=== PATIENT | male | born 1965 | race Caucasian/White ===

== ENCOUNTER 2016-08-17 22:32 | Emergency (ER) | payer MEDICARE, OTHER ==
[~2016-08-17] VITALS: Ht 170.2 cm; Wt 73.6 kg
[~2016-08-17 22:32] MED LIST: DOCU250C91 PO; DULO20CA30 PO; GABA-531 PO; LEVE500T53 PO; PALI234D IM; PANT20TA PO; PHENY100 PO; TAMS0.4C32 PO
[2016-08-17 23:08] VITALS: BP 107/73
[2016-08-17] MEDS ORDERED: PredniSONE 20 MG TABLET PO ONE (23:45)
== END 2016-08-17 23:49 | disposition home or self-care (01) ==
LOC: EMS 22:37
DX: J06.9 Acute upper respiratory infection, unspecified (principal); I48.91 Unspecified atrial fibrillation; J44.9 Chronic obstructive pulmonary disease, unspecified; K21.9 Gastro-esophageal reflux disease without esophagitis; I10 Essential (primary) hypertension; F17.210 Nicotine dependence, cigarettes, uncomplicated; Z88.8 Allergy status to other drugs, medicaments and biological substances
CPT/HCPCS: 99283; J7512

== ENCOUNTER 2016-09-17 20:25 | Inpatient (IN) | payer MEDICARE, MEDICAID ==
[~2016-09-17] VITALS: Ht 170.2 cm; Wt 77.5 kg
[2016-09-17] MEDS ORDERED: HydrOXYzine PAMOATE 50 MG CAPSULE PO PRN (21:15)
[2016-09-17] MEDS ORDERED: LOPERAMIDE HCL 2 MG CAPSULE PO PRN (21:15)
[2016-09-17] MEDS ORDERED: GuaiFENesin/D-METHORPHAN [SUGAR-FREE] 200-20MG/10 ML SYRUP UDCUP PO PRN (21:15)
[2016-09-17] MEDS ORDERED: QUEtiapine FUMARATE 100 MG TABLET PO PRN (21:15)
[2016-09-17] MEDS ORDERED: CYANOCOBALAMIN 1,000 MCG/ML VIAL IM ONE (21:15)
[2016-09-17] MEDS ORDERED: DIAZEPAM 10 MG TABLET PO PRN (21:15)
[2016-09-17] MEDS ORDERED: ZOLPIDEM TARTRATE 10 MG TABLET PO PRN (21:15)
[2016-09-17] MEDS ORDERED: -PHARMACY VACCINE NOTE- MISC ONE ×2 (22:45)
[2016-09-17 23:50] VITALS: BP 124/81
[2016-09-18] VITALS (9 sets, daily range): BP systolic 89–120; BP diastolic 53–83
[2016-09-18] MEDS ORDERED: DIAZEPAM 10 MG TABLET PO PRN (07:00)
[2016-09-18] MEDS: DIAZEPAM 10 MG TABLET PO SCH ×4 (09:28→21:13)
[2016-09-18] MEDS: DULoxetine HCL 20 MG CAPSULE PO SCH (09:29)
[2016-09-18] MEDS: GABAPENTIN 300 MG CAPSULE PO SCH ×4 (09:29→21:13)
[2016-09-18] MEDS: DOCUSATE SODIUM 100 MG CAPSULE PO SCH ×2 (09:29→17:33)
[2016-09-18] MEDS: PHENYTOIN SODIUM 100 MG ER CAPSULE PO SCH ×3 (09:29→17:33)
[2016-09-18] MEDS: MULTIVITAMINS WITH MINERALS, THERAPEUTIC TABLET PO SCH (09:30)
[2016-09-18] MEDS: LevETIRAcetam 500 MG TABLET PO SCH ×3 (09:30→17:34)
[2016-09-18] MEDS: PANTOPRAZOLE SODIUM 40 MG DR TABLET PO SCH (09:31)
[2016-09-18] MEDS: FOLIC ACID 1 MG TABLET PO SCH (09:34)
[2016-09-18] MEDS: THIAMINE HCL 100 MG TABLET PO SCH ×2 (09:34→17:34)
[2016-09-18] MEDS ORDERED: PROMETHAZINE HCL 25 MG TABLET PO PRN (12:15)
[2016-09-18] MEDS ORDERED: MAG HYDROX/AL HYDROX/SIMETH ES 30 ML SUSPENSION UDCUP PO PRN (12:15)
[2016-09-18] MEDS ORDERED: MAGNESIUM HYDROXIDE SUSPENSION 30 ML UDCUP PO PRN (12:15)
[2016-09-18] MEDS ORDERED: PALIPERIDONE PALMITATE 234 MG/1.5 ML SYRINGE IM ONE (12:45)
[2016-09-18] MEDS: TOPIRAMATE 25 MG TABLET PO SCH ×3 (13:58→21:13)
[2016-09-18] MEDS: ACAMPROSATE CALCIUM 333 MG DR TABLET PO SCH (17:00)
[2016-09-18] MEDS ORDERED: DENTURE ADHESIVE 68 GM CREAM DT PRN (18:30)
[2016-09-18] MEDS: TAMSULOSIN HCL 0.4 MG CAPSULE PO SCH (21:13)
[2016-09-19 03:02] VITALS: BP 106/68
[2016-09-19 03:03] VITALS: BP 106/68
[2016-09-19 08:06] VITALS: BP 111/77
[2016-09-19 08:26] LABS: BASOPHILS % (AUTO) 0.3 % (0.0-2.0); EOSINOPHILS % (AUTO) 8.4 % (1.0-6.0); HEMOGLOBIN 14.7 g/dL (13.5-17.5); LYMPHOCYTES # (AUTO) 1.3 K/uL (1.0-4.8); LYMPHOCYTES % (AUTO) 13.2 % (22.0-44.0); MEAN CORPUSCULAR HEMOGLOBIN 29.9 pg (26.0-34.0); MEAN CORPUSCULAR HGB CONC 32.8 G/dL (31.0-37.0); MEAN CORPUSCULAR VOLUME 91 fL (80-100); MONOCYTES # (AUTO) 0.7 K/uL (0.1-1.0); MONOCYTES % (AUTO) 6.9 % (2.0-9.0); NEUTROPHILS # (AUTO) 6.8 K/uL (1.8-7.7); NEUTROPHILS % (AUTO) 71.2 % (40.0-70.0); PLATELET COUNT (AUTO) 281 K/uL (150-450); RED BLOOD CELL COUNT(AUTO) 4.94 MIL/uL (4.50-5.90); RED CELL DISTRIBUTION WIDTH 14.9 % (11.5-14.5); WHITE BLOOD COUNT (AUTO) 9.5 K/uL (4.5-11.0)
[2016-09-19] MEDS: PHENYTOIN SODIUM 100 MG ER CAPSULE PO SCH ×3 (08:41→16:18)
[2016-09-19] MEDS: NALTREXONE HCL 50 MG TABLET PO SCH (08:41)
[2016-09-19] MEDS: DULoxetine HCL 20 MG CAPSULE PO SCH (08:41)
[2016-09-19] MEDS: LevETIRAcetam 500 MG TABLET PO SCH ×3 (08:41→16:19)
[2016-09-19] MEDS: MULTIVITAMINS WITH MINERALS, THERAPEUTIC TABLET PO SCH (08:42)
[2016-09-19] MEDS: THIAMINE HCL 100 MG TABLET PO SCH ×2 (08:42→16:18)
[2016-09-19] MEDS: ACAMPROSATE CALCIUM 333 MG DR TABLET PO SCH ×3 (08:42→16:18)
[2016-09-19] MEDS: GABAPENTIN 300 MG CAPSULE PO SCH ×4 (08:42→20:34)
[2016-09-19] MEDS: DIAZEPAM 10 MG TABLET PO SCH ×4 (08:42→20:34)
[2016-09-19] MEDS: DOCUSATE SODIUM 100 MG CAPSULE PO SCH ×2 (08:43→16:18)
[2016-09-19] MEDS: TOPIRAMATE 25 MG TABLET PO SCH ×4 (08:43→20:35)
[2016-09-19] MEDS: FOLIC ACID 1 MG TABLET PO SCH (08:43)
[2016-09-19] MEDS: PANTOPRAZOLE SODIUM 40 MG DR TABLET PO SCH (08:43)
[2016-09-19 08:51] LABS: HEMOGLOBIN A1C 5.1 % (4.5-6.2)
[2016-09-19 08:59] LABS: ALANINE AMINOTRANSFERASE 22 U/L (12-78); ALBUMIN 3.8 g/dL (3.4-5.0); ANION GAP 9 mmol/L (8-16); ASPARTATE AMINOTRANSFERASE 19 U/L (15-37); BILIRUBIN,TOTAL 0.7 mg/dL (0.1-1.0); CALCIUM, TOTAL 9.1 mg/dL (8.8-10.5); CARBON DIOXIDE 28 mmol/L (22-29); CHLORIDE 104 mmol/L (98-107); CHOL/HDL RATIO 1.9 (4.2-7.3); CREATININE 0.89 mg/dL (0.60-1.30); GLOMERULAR FILTR. RATE CALC > 60 mL/min (>60); POTASSIUM 4.2 mmol/L (3.5-5.1); SODIUM SERUM 141 mmol/L (136-145); THYROID STIMULATING HORMONE 0.66 uIU/mL (0.36-3.74); TOTAL PROTEIN, SERUM 7.8 g/dL (6.4-8.2); UREA NITROGEN, BLOOD 13 mg/dL (7-18)
[2016-09-19 16:18] VITALS: BP 117/80
[2016-09-19] MEDS: ACETAMINOPHEN 325 MG TABLET PO PRN (16:23)
[2016-09-19] MEDS: TAMSULOSIN HCL 0.4 MG CAPSULE PO SCH (20:36)
[2016-09-20 00:03] VITALS: BP 121/76
[2016-09-20 00:04] VITALS: BP 121/76
[2016-09-20] MEDS ORDERED: DIAZEPAM 5 MG TABLET PO PRN (07:00)
[2016-09-20 08:16] VITALS: BP 102/73
[2016-09-20 08:17] VITALS: BP 102/73
[2016-09-20] MEDS: ACETAMINOPHEN 325 MG TABLET PO PRN (08:42)
[2016-09-20] MEDS: DIAZEPAM 5 MG TABLET PO SCH ×4 (08:43→20:34)
[2016-09-20] MEDS: PANTOPRAZOLE SODIUM 40 MG DR TABLET PO SCH (08:43)
[2016-09-20] MEDS: FOLIC ACID 1 MG TABLET PO SCH (08:44)
[2016-09-20] MEDS: MULTIVITAMINS WITH MINERALS, THERAPEUTIC TABLET PO SCH (08:44)
[2016-09-20] MEDS: GABAPENTIN 300 MG CAPSULE PO SCH ×4 (08:44→20:34)
[2016-09-20] MEDS: ACAMPROSATE CALCIUM 333 MG DR TABLET PO SCH ×3 (08:44→16:41)
[2016-09-20] MEDS: TOPIRAMATE 25 MG TABLET PO SCH ×4 (08:44→20:35)
[2016-09-20] MEDS: THIAMINE HCL 100 MG TABLET PO SCH ×2 (08:44→16:41)
[2016-09-20] MEDS: DOCUSATE SODIUM 100 MG CAPSULE PO SCH ×2 (08:45→16:42)
[2016-09-20] MEDS: PHENYTOIN SODIUM 100 MG ER CAPSULE PO SCH ×3 (08:45→16:42)
[2016-09-20] MEDS: DULoxetine HCL 20 MG CAPSULE PO SCH (08:45)
[2016-09-20] MEDS: LevETIRAcetam 500 MG TABLET PO SCH ×3 (08:45→16:42)
[2016-09-20] MEDS: NALTREXONE HCL 50 MG TABLET PO SCH (08:45)
[2016-09-20 16:00] VITALS: BP 113/78
[2016-09-20 16:07] VITALS: BP 113/78
[2016-09-20] MEDS: TAMSULOSIN HCL 0.4 MG CAPSULE PO SCH (20:35)
[2016-09-21] VITALS: BP 113/65
[2016-09-21 06:26] VITALS: BP 108/73
[2016-09-21] MEDS ORDERED: DIAZEPAM 5 MG TABLET PO PRN (07:00)
[2016-09-21 08:04] VITALS: BP 124/68
[2016-09-21] MEDS: PANTOPRAZOLE SODIUM 40 MG DR TABLET PO SCH (08:34)
[2016-09-21] MEDS: TOPIRAMATE 25 MG TABLET PO SCH ×3 (08:36→16:38)
[2016-09-21] MEDS: DOCUSATE SODIUM 100 MG CAPSULE PO SCH ×2 (08:36→16:38)
[2016-09-21] MEDS: ACAMPROSATE CALCIUM 333 MG DR TABLET PO SCH ×3 (08:37→16:39)
[2016-09-21] MEDS: THIAMINE HCL 100 MG TABLET PO SCH ×2 (08:37→16:38)
[2016-09-21] MEDS: DULoxetine HCL 20 MG CAPSULE PO SCH (08:37)
[2016-09-21] MEDS: PHENYTOIN SODIUM 100 MG ER CAPSULE PO SCH ×3 (08:37→16:38)
[2016-09-21] MEDS: FOLIC ACID 1 MG TABLET PO SCH (08:37)
[2016-09-21] MEDS: NALTREXONE HCL 50 MG TABLET PO SCH (08:37)
[2016-09-21] MEDS: MULTIVITAMINS WITH MINERALS, THERAPEUTIC TABLET PO SCH (08:37)
[2016-09-21] MEDS: LevETIRAcetam 500 MG TABLET PO SCH ×3 (08:38→16:38)
[2016-09-21] MEDS: GABAPENTIN 300 MG CAPSULE PO SCH ×3 (08:38→16:38)
[2016-09-21 10:26] VITALS: BP 124/68
[2016-09-21] MEDS: ACETAMINOPHEN 325 MG TABLET PO PRN (13:34)
[2016-09-21 13:36] VITALS: BP 128/73
[2016-09-21 14:36] VITALS: BP 119/72
[2016-09-21] MEDS ORDERED: GABA-531 PO (15:41)
[2016-09-21] MEDS ORDERED: DULO20CA30 PO (15:41)
[2016-09-21] MEDS ORDERED: NALT50 PO (15:41)
[2016-09-21] MEDS ORDERED: ACAM333T7 PO (15:41)
[2016-09-21] MEDS ORDERED: TOPI25 PO (15:41)
[2016-09-21] MEDS ORDERED: PALI234D IM (15:41)
[2016-09-21] MEDS ORDERED: PHENY100 PO (15:41)
[2016-09-21] MEDS ORDERED: LEVE500T53 PO (15:41)
[2016-10-16] MEDS ORDERED: PALIPERIDONE PALMITATE 234 MG/1.5 ML SYRINGE IM SCH (09:00)
== END 2016-09-21 16:50 | disposition home or self-care (01) | DRG 885 ==
LOC: B2X 21:09 → EDSTATUS 21:48
PROVIDERS: ADMIT Psychiatry & Neurology Psychiatry; ATTEND Psychiatry & Neurology Psychiatry
PROC: GZ51ZZZ Individual Psychotherapy, Behavioral (ICD-10-PCS; principal; 2016-09-17)
DX: F25.1 Schizoaffective disorder, depressive type (principal); R45.851 Suicidal ideations; F10.239 Alcohol dependence with withdrawal, unspecified; F12.90 Cannabis use, unspecified, uncomplicated; K21.9 Gastro-esophageal reflux disease without esophagitis; K59.00 Constipation, unspecified; M19.039 Primary osteoarthritis, unspecified wrist; N40.0 Benign prostatic hyperplasia without lower urinary tract symptoms; R56.9 Unspecified convulsions; J44.9 Chronic obstructive pulmonary disease, unspecified; F17.210 Nicotine dependence, cigarettes, uncomplicated; B19.20 Unspecified viral hepatitis C without hepatic coma; E78.5 Hyperlipidemia, unspecified; I10 Essential (primary) hypertension; F15.90 Other stimulant use, unspecified, uncomplicated; D64.9 Anemia, unspecified; I48.91 Unspecified atrial fibrillation; Z88.8 Allergy status to other drugs, medicaments and biological substances; Z91.19 Patient's noncompliance with other medical treatment and regimen; Z98.890 Other specified postprocedural states; Z84.89 Family history of other specified conditions
CPT/HCPCS: 83036; 84439; 84443; J3420

== ENCOUNTER 2016-10-01 22:20 | Emergency (ER) | payer MEDICARE, OTHER ==
[~2016-10-01] VITALS: Ht 170.2 cm; Wt 77.7 kg
[~2016-10-01 22:20] MED LIST changes: +ACAM333T7 PO; +NALT50 PO; +TOPI25 PO
[2016-10-01 22:52] LABS: BASOPHILS % (AUTO) 0.9 % (0.0-2.0); EOSINOPHILS % (AUTO) 12.7 % (1.0-6.0); HEMATOCRIT 40.9 % (41-53); HEMOGLOBIN 13.5 g/dL (13.5-17.5); LYMPHOCYTES # (AUTO) 2.8 K/uL (1.0-4.8); LYMPHOCYTES % (AUTO) 43.1 % (22.0-44.0); MEAN CORPUSCULAR HEMOGLOBIN 29.5 pg (26.0-34.0); MEAN CORPUSCULAR VOLUME 90 fL (80-100); MONOCYTES # (AUTO) 0.5 K/uL (0.1-1.0); MONOCYTES % (AUTO) 8.3 % (2.0-9.0); NEUTROPHILS # (AUTO) 2.3 K/uL (1.8-7.7); PLATELET COUNT (AUTO) 298 K/uL (150-450); RED BLOOD CELL COUNT(AUTO) 4.57 MIL/uL (4.50-5.90); WHITE BLOOD COUNT (AUTO) 6.4 K/uL (4.5-11.0)
[2016-10-01 23:03] LABS: ANION GAP 9 mmol/L (8-16); CALCIUM, TOTAL 8.6 mg/dL (8.8-10.5); CARBON DIOXIDE 29 mmol/L (22-29); CHLORIDE 105 mmol/L (98-107); CREATININE 0.87 mg/dL (0.60-1.30); GLOMERULAR FILTR. RATE CALC > 60 mL/min (>60); SODIUM SERUM 143 mmol/L (136-145); UREA NITROGEN, BLOOD 12 mg/dL (7-18)
[2016-10-01 23:09] LABS: ALANINE AMINOTRANSFERASE 53 U/L (12-78); ALBUMIN 3.5 g/dL (3.4-5.0); ASPARTATE AMINOTRANSFERASE 56 U/L (15-37); BILIRUBIN,TOTAL 0.1 mg/dL (0.1-1.0); TOTAL PROTEIN, SERUM 7.2 g/dL (6.4-8.2)
[2016-10-01 23:32] LABS: GLUCOSE,POINT OF CARE 93 MG/DL (70-110)
[2016-10-01] MEDS ORDERED: SODIUM CHLORIDE IV ONE (23:45)
[2016-10-01] MEDS ORDERED: FOSPHENYTOIN SODIUM IV ONE (23:45)
[2016-10-02 02:34] VITALS: BP 126/63
== END 2016-10-02 02:37 | disposition home or self-care (01) ==
LOC: EMS 22:23
DX: F10.229 Alcohol dependence with intoxication, unspecified (principal); I10 Essential (primary) hypertension; J44.9 Chronic obstructive pulmonary disease, unspecified; K21.9 Gastro-esophageal reflux disease without esophagitis; F17.210 Nicotine dependence, cigarettes, uncomplicated; Z88.8 Allergy status to other drugs, medicaments and biological substances; Y90.8 Blood alcohol level of 240 mg/100 ml or more
CPT/HCPCS: 36415; 80053; 80185; 82948; 82962; 83690; 84484; 85025; 96365; 96366; 99285; G0480; J7050; Q2009

== ENCOUNTER 2017-02-26 14:35 | Emergency (ER) | payer MEDICARE, OTHER ==
[~2017-02-26] VITALS: Ht 170.2 cm; Wt 81.8 kg
[2017-02-26] MEDS ORDERED: HYDROCODONE/ACETAMINOPHEN 5-325 MG TABLET PO ONE (15:30)
[2017-02-26] MEDS ORDERED: ONDANSETRON HCL 4 MG TABLET PO ONE (15:30)
[2017-02-26] MEDS ORDERED: PANT40TA25 PO (15:34)
[2017-02-26] MEDS ORDERED: DSS100 PO (15:35)
[2017-02-26 15:52] VITALS: BP 121/75
== END 2017-02-26 15:56 | disposition home or self-care (01) ==
LOC: EMS 14:42
DX: S13.4XXA Sprain of ligaments of cervical spine, initial encounter (principal); M25.552 Pain in left hip; I10 Essential (primary) hypertension; J44.9 Chronic obstructive pulmonary disease, unspecified; I48.91 Unspecified atrial fibrillation; K21.9 Gastro-esophageal reflux disease without esophagitis; F17.210 Nicotine dependence, cigarettes, uncomplicated; Z88.8 Allergy status to other drugs, medicaments and biological substances; V49.50XA Passenger injured in collision with unspecified motor vehicles in traffic accident, initial encounter; Y93.89 Activity, other specified; Y92.411 Interstate highway as the place of occurrence of the external cause; Y99.8 Other external cause status
CPT/HCPCS: 99283; Q0162

== ENCOUNTER → 2017-05-17 | Outpatient (CLI) | payer MEDICARE, MEDICAID, SELFPAY, OTHER ==
[~2017-05-17] MED LIST changes: +CEPH500 PO; -DOCU250C91 PO; +DSS100 PO; -NALT50 PO; +NALT50TA6 PO; +PALI6 PO; -PANT20TA PO; +PANT40TA25 PO
== END | disposition home or self-care (01) ==
LOC: MSR 09:42
PROVIDERS: ATTEND Legal Medicine
DX: R76.11 Nonspecific reaction to tuberculin skin test without active tuberculosis (principal)
CPT/HCPCS: 71020; 86480

== ENCOUNTER 2017-07-21 21:26 | Inpatient (IN) | payer MEDICARE, MEDICAID ==
[~2017-07-21] VITALS: Ht 170.2 cm; Wt 74.4 kg
[~2017-07-21 21:26] MED LIST changes: -CEPH500 PO; -PALI6 PO
[2017-07-21 21:54] VITALS: BP 118/78
[2017-07-21] MEDS ORDERED: HALOPERIDOL 5 MG TABLET PO PRN (22:00)
[2017-07-22] VITALS (8 sets, daily range): BP systolic 100–115; BP diastolic 67–85
[2017-07-22 01:25] LABS: BASOPHILS # (AUTO) 0.04 K/uL (0.00-0.20); EOSINOPHILS # (AUTO) 0.17 K/uL (0.00-0.70); EOSINOPHILS % (AUTO) 3.94 % (1.0-6.0); HEMATOCRIT 42.4 % (41-53); HEMOGLOBIN 14.2 g/dL (13.5-17.5); LYMPHOCYTES # (AUTO) 1.5 K/uL (1.0-4.8); MEAN CORPUSCULAR HEMOGLOBIN 29.8 pg (26.0-34.0); MEAN CORPUSCULAR HGB CONC 33.4 G/dL (31.0-37.0); MEAN CORPUSCULAR VOLUME 89 fL (80-100); MONOCYTES # (AUTO) 0.4 K/uL (0.1-1.0); MONOCYTES % (AUTO) 9.8 % (2.0-9.0); NEUTROPHILS # (AUTO) 2.2 K/uL (1.8-7.7); NEUTROPHILS % (AUTO) 50.3 % (40.0-70.0); PLATELET COUNT (AUTO) 290 K/uL (150-450); RED BLOOD CELL COUNT(AUTO) 4.75 MIL/uL (4.50-5.90); RED CELL DISTRIBUTION WIDTH 15.4 % (11.5-14.5)
[2017-07-22 01:34] LABS: ANION GAP 10 mmol/L (8-16); CARBON DIOXIDE 25 mmol/L (22-29); CHLORIDE 100 mmol/L (98-107); CREATININE 0.81 mg/dL (0.60-1.30); GLOMERULAR FILTR. RATE CALC > 60 mL/min (>60); GLUCOSE,RANDOM 109 mg/dL (70-110); POTASSIUM 3.6 mmol/L (3.5-5.1); SODIUM SERUM 135 mmol/L (136-145); UREA NITROGEN, BLOOD 8 mg/dL (7-18)
[2017-07-22 01:38] LABS: APPEARANCE,URINE CLEAR (CLEAR); BILIRUBIN,URINE NEGATIVE (NEGATIVE); GLUCOSE, URINE (UA) NEGATIVE (NEGATIVE); KETONES,URINE NEGATIVE (NEGATIVE); LEUKOCYTE ESTERASE ,URINE NEGATIVE (NEGATIVE); NITRATE,URINE NEGATIVE (NEGATIVE); OCCULT BLOOD,URINE NEGATIVE (NEGATIVE); PROTEIN,URINE NEGATIVE (NEGATIVE); UROBILINOGEN,URINE 0.2 mg/dL (<=1.0)
[2017-07-22 01:40] LABS: ALANINE AMINOTRANSFERASE 48 U/L (12-78); ALBUMIN 3.5 g/dL (3.4-5.0); ALKALINE PHOSPHATASE 69 U/L (46-116); ASPARTATE AMINOTRANSFERASE 37 U/L (15-37); BILIRUBIN,TOTAL 0.3 mg/dL (0.1-1.0); TOTAL PROTEIN, SERUM 7.2 g/dL (6.4-8.2)
[2017-07-22 01:43] LABS: AMPHET/METH SCREEN,URINE NEGATIVE (NEGATIVE); BARBITURATE SCREEN, URINE NEGATIVE (NEGATIVE); BENZODIAZEPINES SCREEN,URINE NEGATIVE (NEGATIVE); CANNABINOID SCREEN,URINE NEGATIVE (NEGATIVE); COCAINE SCREEN,URINE NEGATIVE (NEGATIVE); METHADONE SCREEN, URINE NEGATIVE (NEGATIVE); OPIATE SCREEN,URINE NEGATIVE (NEGATIVE); PHENCYCLIDINE SCREEN,URINE NEGATIVE (NEGATIVE)
[2017-07-22] MEDS ORDERED: CefTRIAXone SODIUM 1 GM/VIAL IM ONE (03:15)
[2017-07-22] MEDS ORDERED: LIDOCAINE HCL/PF 1% 2 ML VIAL IM ONE (03:15)
[2017-07-22] MEDS: NICOTINE 14 MG/24 HOUR PATCH TD SCH (08:22)
[2017-07-22] MEDS: CEPHALEXIN MONOHYDRATE 500 MG CAPSULE PO SCH ×4 (08:22→21:27)
[2017-07-22 08:27] LABS: BASOPHILS # (AUTO) 0.04 K/uL (0.00-0.20); BASOPHILS % (AUTO) 0.8 % (0.0-2.0); EOSINOPHILS # (AUTO) 0.17 K/uL (0.00-0.70); EOSINOPHILS % (AUTO) 3.82 % (1.0-6.0); HEMATOCRIT 42.7 % (41-53); HEMOGLOBIN 14.2 g/dL (13.5-17.5); LYMPHOCYTES # (AUTO) 0.9 K/uL (1.0-4.8); LYMPHOCYTES % (AUTO) 19.6 % (22.0-44.0); MEAN CORPUSCULAR HEMOGLOBIN 29.9 pg (26.0-34.0); MEAN CORPUSCULAR HGB CONC 33.3 G/dL (31.0-37.0); MEAN CORPUSCULAR VOLUME 90 fL (80-100); MONOCYTES # (AUTO) 0.5 K/uL (0.1-1.0); MONOCYTES % (AUTO) 10.9 % (2.0-9.0); NEUTROPHILS # (AUTO) 2.9 K/uL (1.8-7.7); NEUTROPHILS % (AUTO) 64.8 % (40.0-70.0); PLATELET COUNT (AUTO) 289 K/uL (150-450); RED BLOOD CELL COUNT(AUTO) 4.75 MIL/uL (4.50-5.90); RED CELL DISTRIBUTION WIDTH 15.3 % (11.5-14.5)
[2017-07-22 09:12] LABS: ALANINE AMINOTRANSFERASE 48 U/L (12-78); ALBUMIN 3.6 g/dL (3.4-5.0); ALKALINE PHOSPHATASE 70 U/L (46-116); ANION GAP 12 mmol/L (8-16); ASPARTATE AMINOTRANSFERASE 43 U/L (15-37); BILIRUBIN,TOTAL 0.3 mg/dL (0.1-1.0); CALCIUM, TOTAL 8.3 mg/dL (8.8-10.5); CARBON DIOXIDE 25 mmol/L (22-29); CHLORIDE 100 mmol/L (98-107); CREATININE 0.75 mg/dL (0.60-1.30); GLOMERULAR FILTR. RATE CALC > 60 mL/min (>60); GLUCOSE,RANDOM 91 mg/dL (70-110); SODIUM SERUM 137 mmol/L (136-145); TOTAL PROTEIN, SERUM 7.3 g/dL (6.4-8.2); UREA NITROGEN, BLOOD 8 mg/dL (7-18)
[2017-07-22] MEDS ORDERED: DENTURE ADHESIVE 68 GM CREAM DT PRN (09:15)
[2017-07-22] MEDS: LORazepam 2 MG TABLET PO PRN (12:50)
[2017-07-22] MEDS: LevETIRAcetam 500 MG TABLET PO SCH (16:27)
[2017-07-22] MEDS: ZOLPIDEM TARTRATE 10 MG TABLET PO PRN (21:39)
[2017-07-23] VITALS (7 sets, daily range): BP systolic 116–135; BP diastolic 74–85
[2017-07-23] MEDS: DULoxetine HCL 20 MG CAPSULE PO SCH (08:27)
[2017-07-23] MEDS: PANTOPRAZOLE SODIUM 40 MG DR TABLET PO SCH (08:27)
[2017-07-23] MEDS: CEPHALEXIN MONOHYDRATE 500 MG CAPSULE PO SCH ×4 (08:27→20:11)
[2017-07-23] MEDS: PALIPERIDONE 6 MG ER TABLET PO SCH (08:27)
[2017-07-23] MEDS: LevETIRAcetam 500 MG TABLET PO SCH ×2 (08:27→16:12)
[2017-07-23] MEDS: NICOTINE 14 MG/24 HOUR PATCH TD SCH (08:28)
[2017-07-23] MEDS: ACETAMINOPHEN 325 MG TABLET PO PRN (11:19)
[2017-07-23] MEDS: LORazepam 2 MG TABLET PO PRN (16:12)
[2017-07-24 03:12] VITALS: BP 128/84
[2017-07-24] MEDS: LORazepam 2 MG TABLET PO PRN ×2 (03:12→13:22)
[2017-07-24 03:13] VITALS: BP 128/84
[2017-07-24] MEDS: DULoxetine HCL 20 MG CAPSULE PO SCH (08:28)
[2017-07-24] MEDS: CEPHALEXIN MONOHYDRATE 500 MG CAPSULE PO SCH ×4 (08:28→20:09)
[2017-07-24] MEDS: PALIPERIDONE 6 MG ER TABLET PO SCH (08:29)
[2017-07-24] MEDS: NICOTINE 14 MG/24 HOUR PATCH TD SCH (08:29)
[2017-07-24] MEDS: LevETIRAcetam 500 MG TABLET PO SCH ×2 (08:29→16:13)
[2017-07-24] MEDS: PANTOPRAZOLE SODIUM 40 MG DR TABLET PO SCH (08:29)
[2017-07-24 08:35] VITALS: BP 110/64
[2017-07-24 16:16] VITALS: BP 123/90
[2017-07-24] MEDS: ZOLPIDEM TARTRATE 10 MG TABLET PO PRN (21:01)
[2017-07-25 01:58] VITALS: BP 119/74
[2017-07-25 02:03] VITALS: BP 119/74
[2017-07-25] MEDS: LORazepam 2 MG TABLET PO PRN ×2 (02:03→16:56)
[2017-07-25 08:17] VITALS: BP 119/80
[2017-07-25] MEDS: CEPHALEXIN MONOHYDRATE 500 MG CAPSULE PO SCH ×4 (08:21→20:22)
[2017-07-25] MEDS: DULoxetine HCL 20 MG CAPSULE PO SCH (08:21)
[2017-07-25] MEDS: PALIPERIDONE 6 MG ER TABLET PO SCH (08:21)
[2017-07-25] MEDS: PANTOPRAZOLE SODIUM 40 MG DR TABLET PO SCH (08:21)
[2017-07-25] MEDS: LevETIRAcetam 500 MG TABLET PO SCH ×2 (08:22→16:09)
[2017-07-25] MEDS: NICOTINE 14 MG/24 HOUR PATCH TD SCH (08:22)
[2017-07-25 16:08] VITALS: BP 122/84
[2017-07-25 16:09] VITALS: BP 122/84
[2017-07-25] MEDS: ZOLPIDEM TARTRATE 10 MG TABLET PO PRN (20:24)
[2017-07-26 01:38] VITALS: BP 127/86
[2017-07-26 01:40] VITALS: BP 127/86
[2017-07-26] MEDS: LORazepam 2 MG TABLET PO PRN ×3 (01:52→22:12)
[2017-07-26 08:00] VITALS: BP 119/64
[2017-07-26 08:16] VITALS: BP 119/64
[2017-07-26] MEDS: CEPHALEXIN MONOHYDRATE 500 MG CAPSULE PO SCH ×4 (08:59→20:26)
[2017-07-26] MEDS: NICOTINE 14 MG/24 HOUR PATCH TD SCH (08:59)
[2017-07-26] MEDS: DULoxetine HCL 20 MG CAPSULE PO SCH (08:59)
[2017-07-26] MEDS: PANTOPRAZOLE SODIUM 40 MG DR TABLET PO SCH (08:59)
[2017-07-26] MEDS: LevETIRAcetam 500 MG TABLET PO SCH ×2 (08:59→16:37)
[2017-07-26] MEDS: PALIPERIDONE 6 MG ER TABLET PO SCH (08:59)
[2017-07-26 16:00] VITALS: BP 123/83
[2017-07-26 16:06] VITALS: BP 125/83
[2017-07-26] MEDS: ZOLPIDEM TARTRATE 10 MG TABLET PO PRN (20:26)
[2017-07-27 01:42] VITALS: BP 118/60
[2017-07-27 08:14] VITALS: BP 110/87
[2017-07-27] MEDS: PALIPERIDONE 6 MG ER TABLET PO SCH (09:52)
[2017-07-27] MEDS: DULoxetine HCL 20 MG CAPSULE PO SCH (09:52)
[2017-07-27] MEDS: CEPHALEXIN MONOHYDRATE 500 MG CAPSULE PO SCH ×4 (09:52→20:32)
[2017-07-27] MEDS: LevETIRAcetam 500 MG TABLET PO SCH ×2 (09:53→16:38)
[2017-07-27] MEDS: PANTOPRAZOLE SODIUM 40 MG DR TABLET PO SCH (09:53)
[2017-07-27] MEDS: NICOTINE 14 MG/24 HOUR PATCH TD SCH (09:55)
[2017-07-27 13:28] VITALS: BP 118/72
[2017-07-27] MEDS: LORazepam 2 MG TABLET PO PRN (13:30)
[2017-07-27] MEDS: ACETAMINOPHEN 325 MG TABLET PO PRN (13:30)
[2017-07-27 13:38] VITALS: BP 117/72
[2017-07-27 14:31] VITALS: BP 115/67
[2017-07-27 16:22] VITALS: BP 136/84
[2017-07-27] MEDS: ZOLPIDEM TARTRATE 10 MG TABLET PO PRN (22:00)
[2017-07-28 00:17] VITALS: BP 114/92
[2017-07-28 00:21] VITALS: BP 114/92
[2017-07-28] MEDS: LORazepam 2 MG TABLET PO PRN ×2 (00:44→08:32)
[2017-07-28] MEDS: PANTOPRAZOLE SODIUM 40 MG DR TABLET PO SCH (08:31)
[2017-07-28] MEDS: PALIPERIDONE 6 MG ER TABLET PO SCH (08:31)
[2017-07-28] MEDS: CEPHALEXIN MONOHYDRATE 500 MG CAPSULE PO SCH ×2 (08:31→12:16)
[2017-07-28] MEDS: LevETIRAcetam 500 MG TABLET PO SCH (08:32)
[2017-07-28] MEDS: NICOTINE 14 MG/24 HOUR PATCH TD SCH (08:32)
[2017-07-28] MEDS: DULoxetine HCL 20 MG CAPSULE PO SCH (08:32)
[2017-07-28 08:56] VITALS: BP 112/77
[2017-07-28 09:47] VITALS: BP 112/77
[2017-07-28] MEDS ORDERED: DULO20CA30 PO (12:34)
[2017-07-28] MEDS ORDERED: PALI6 PO (12:34)
[2017-07-28] MEDS ORDERED: LEVE500T53 PO (12:39)
[2017-07-28] MEDS ORDERED: PANT40TA25 PO (12:39)
[2017-07-28] MEDS ORDERED: CEPH500 PO (12:39)
== END 2017-07-28 16:00 | disposition home or self-care (01) | DRG 885 ==
LOC: BV PSY EVL 23:44 → B2X 07-22 03:00
PROVIDERS: ADMIT Psychiatry & Neurology Psychiatry; ATTEND Psychiatry & Neurology Psychiatry
DX: F20.0 Paranoid schizophrenia (principal); K75.9 Inflammatory liver disease, unspecified; R45.851 Suicidal ideations; E87.1 Hypo-osmolality and hyponatremia; L03.113 Cellulitis of right upper limb; I48.91 Unspecified atrial fibrillation; J44.9 Chronic obstructive pulmonary disease, unspecified; K21.9 Gastro-esophageal reflux disease without esophagitis; K59.00 Constipation, unspecified; I10 Essential (primary) hypertension; F32.9 Major depressive disorder, single episode, unspecified; D64.9 Anemia, unspecified; F41.9 Anxiety disorder, unspecified; F10.20 Alcohol dependence, uncomplicated; F17.210 Nicotine dependence, cigarettes, uncomplicated; M19.039 Primary osteoarthritis, unspecified wrist; F15.90 Other stimulant use, unspecified, uncomplicated; N40.0 Benign prostatic hyperplasia without lower urinary tract symptoms; F12.90 Cannabis use, unspecified, uncomplicated; Z96.649 Presence of unspecified artificial hip joint; Z86.11 Personal history of tuberculosis; Z88.8 Allergy status to other drugs, medicaments and biological substances; Z84.2 Family history of other diseases of the genitourinary system; Z83.79 Family history of other diseases of the digestive system; Z79.899 Other long term (current) drug therapy
CPT/HCPCS: 87081; 96372; 99285; G0480; G0482; J0696; J3490

== ENCOUNTER → 2017-09-22 | Outpatient (CLI) | payer MEDICARE, MEDICAID ==
[~2017-09-22] VITALS: Ht 170.2 cm; Wt 66.5 kg
[~2017-09-22] MED LIST changes: -ACAM333T7 PO; +CEPH500 PO; -DSS100 PO; -GABA-531 PO; -NALT50TA6 PO; -PALI234D IM; +PALI6 PO; -PHENY100 PO; -TAMS0.4C32 PO; -TOPI25 PO
[2017-09-22 13:19] VITALS: BP 135/91
== END | disposition home or self-care (01) ==
LOC: SRCNTR 13:03
PROVIDERS: ATTEND Internal Medicine
DX: F20.9 Schizophrenia, unspecified (principal); R56.9 Unspecified convulsions; K21.9 Gastro-esophageal reflux disease without esophagitis; F17.200 Nicotine dependence, unspecified, uncomplicated; R76.12 Nonspecific reaction to cell mediated immunity measurement of gamma interferon antigen response without active tuberculosis
CPT/HCPCS: G0463

== ENCOUNTER 2017-11-19 07:56 | Day surgery (SDC) | payer MEDICARE, OTHER ==
[2017-11-18 13:35] LABS: BASOPHILS % (AUTO) 0.7 % (0.0-2.0); EOSINOPHILS % (AUTO) 1.8 % (1.0-6.0); HEMOGLOBIN 14.5 g/dL (13.5-17.5); LYMPHOCYTES % (AUTO) 9.6 % (22.0-44.0); MEAN CORPUSCULAR HEMOGLOBIN 29.6 pg (26.0-34.0); MEAN CORPUSCULAR HGB CONC 33.7 G/dL (31.0-37.0); MEAN CORPUSCULAR VOLUME 88 fL (80-100); MONOCYTES # (AUTO) 1.2 K/uL (0.1-1.0); MONOCYTES % (AUTO) 12.2 % (2.0-9.0); NEUTROPHILS # (AUTO) 7.7 K/uL (1.8-7.7); NEUTROPHILS % (AUTO) 75.7 % (40.0-70.0); PLATELET COUNT (AUTO) 325 K/uL (150-450); RED BLOOD CELL COUNT(AUTO) 4.89 MIL/uL (4.50-5.90); RED CELL DISTRIBUTION WIDTH 16.2 % (11.5-14.5)
[2017-11-18 13:40] LABS: ANION GAP 5 mmol/L (8-16); CALCIUM, TOTAL 9.4 mg/dL (8.8-10.5); CARBON DIOXIDE 31 mmol/L (22-29); CHLORIDE 93 mmol/L (98-107); CREATININE 0.78 mg/dL (0.60-1.30); GLOMERULAR FILTR. RATE CALC > 60 mL/min (>60); GLUCOSE,RANDOM 89 mg/dL (70-110); SODIUM SERUM 129 mmol/L (136-145); UREA NITROGEN, BLOOD 10 mg/dL (7-18)
[~2017-11-19] VITALS: Ht 170.2 cm; Wt 73.6 kg
[~2017-11-19 07:56] MED LIST changes: +BUPIVACAINE HCL/PF 0.5% 30 ML VIAL ONE; +CeFAZolin 2 GM/DEXTROSE 50 ML IV ONE; +LIDOCAINE HCL 2%/EPI 1:200,000/PF 20 ML VIAL ONE; +RINGERS SOLUTION,LACTATED 1,000 ML IV ONE
[2017-11-19] MEDS ORDERED: LIDOCAINE HCL/PF 2% 5 ML VIAL IM ONE (07:57)
[2017-11-19] MEDS ORDERED: DEXAMETHASONE SOD PHOS 4 MG/ML VIAL IVP ONE (07:57)
[2017-11-19] MEDS ORDERED: PROPOFOL 1% 20 ML VIAL IVP ONE (07:57)
[2017-11-19] MEDS ORDERED: ONDANSETRON HCL 4 MG/2 ML VIAL IVP ONE (07:57)
[2017-11-19] MEDS ORDERED: ROCURONIUM BROMIDE 10 MG/ML 5 ML VIAL IVP ONE (07:57)
[2017-11-19] MEDS ORDERED: SUCCINYLCHOLINE CHLORIDE 20 MG/ML 10 ML VIAL IVP ONE (07:57)
[2017-11-19] MEDS ORDERED: NEOSTIGMINE METHYLSULFATE 1 MG/ML 10 ML VIAL IVP ONE (07:57)
[2017-11-19] MEDS ORDERED: GLYCOPYRROLATE 0.2 MG/ML VIAL IM ONE (07:57)
[2017-11-19] MEDS ORDERED: MIDAZOLAM HCL 2 MG/2 ML VIAL IVP ONE (07:57)
[2017-11-19] MEDS ORDERED: FentaNYL CITRATE-PF 100 MCG/2 ML VIAL IVP ONE (07:57)
[2017-11-19] MEDS ORDERED: RINGERS SOLUTION,LACTATED 1,000 ML IV ONE ×2 (08:00→10:59)
[2017-11-19 08:29] LABS: BASOPHILS % (AUTO) 0.7 % (0.0-2.0); EOSINOPHILS % (AUTO) 5.9 % (1.0-6.0); HEMATOCRIT 42.6 % (41-53); HEMOGLOBIN 14.6 g/dL (13.5-17.5); LYMPHOCYTES # (AUTO) 0.7 K/uL (1.0-4.8); LYMPHOCYTES % (AUTO) 8.4 % (22.0-44.0); MEAN CORPUSCULAR HEMOGLOBIN 30.1 pg (26.0-34.0); MEAN CORPUSCULAR HGB CONC 34.4 G/dL (31.0-37.0); MEAN CORPUSCULAR VOLUME 88 fL (80-100); MONOCYTES # (AUTO) 0.8 K/uL (0.1-1.0); MONOCYTES % (AUTO) 9.5 % (2.0-9.0); NEUTROPHILS # (AUTO) 6.5 K/uL (1.8-7.7); NEUTROPHILS % (AUTO) 75.5 % (40.0-70.0); PLATELET COUNT (AUTO) 338 K/uL (150-450); RED BLOOD CELL COUNT(AUTO) 4.86 MIL/uL (4.50-5.90); RED CELL DISTRIBUTION WIDTH 16.7 % (11.5-14.5)
[2017-11-19 08:48] LABS: ANION GAP 9 mmol/L (8-16); CALCIUM, TOTAL 9.1 mg/dL (8.8-10.5); CARBON DIOXIDE 27 mmol/L (22-29); CHLORIDE 95 mmol/L (98-107); CREATININE 0.76 mg/dL (0.60-1.30); GLOMERULAR FILTR. RATE CALC > 60 mL/min (>60); GLUCOSE,RANDOM 79 mg/dL (70-110); POTASSIUM 4.5 mmol/L (3.5-5.1); SODIUM SERUM 131 mmol/L (136-145); UREA NITROGEN, BLOOD 7 mg/dL (7-18)
[2017-11-19 08:54] LABS: ALANINE AMINOTRANSFERASE 200 U/L (12-78); ALBUMIN 3.9 g/dL (3.4-5.0); ALKALINE PHOSPHATASE 75 U/L (46-116); ASPARTATE AMINOTRANSFERASE 452 U/L (15-37); BILIRUBIN,TOTAL 0.6 mg/dL (0.1-1.0); TOTAL PROTEIN, SERUM 8.2 g/dL (6.4-8.2)
[2017-11-19] MEDS ORDERED: HYDROmorphone 2 MG/ML SYRINGE IVP PRN (10:45)
[2017-11-19] MEDS ORDERED: OXYGEN THERAPY IH SCH (10:45)
[2017-11-19] MEDS ORDERED: FentaNYL CITRATE-PF 100 MCG/2 ML VIAL IVP PRN (10:45)
[2017-11-19] MEDS ORDERED: MEPERIDINE-PF 25 MG/ML SYRINGE IVP PRN (10:45)
[2017-11-19] MEDS ORDERED: HYDROCODONE/ACETAMINOPHEN 5-325 MG TABLET PO PRN (11:15)
[2017-11-19] MEDS ORDERED: IBUPROFEN 800 MG TABLET PO PRN (11:15)
[2017-11-19] MEDS ORDERED: ACETAMINOPHEN 500 MG TABLET PO PRN (11:15)
[2017-11-19] MEDS ORDERED: MEPERIDINE-PF 25 MG/ML SYRINGE ONE (11:22)
== END 2017-11-19 12:40 | disposition home or self-care (01) ==
LOC: SURGERY 07:56
PROVIDERS: ATTEND Surgery
DX: K40.90 Unilateral inguinal hernia, without obstruction or gangrene, not specified as recurrent (principal); I10 Essential (primary) hypertension; K21.9 Gastro-esophageal reflux disease without esophagitis; F17.210 Nicotine dependence, cigarettes, uncomplicated; F12.90 Cannabis use, unspecified, uncomplicated; I25.10 Atherosclerotic heart disease of native coronary artery without angina pectoris; J44.9 Chronic obstructive pulmonary disease, unspecified; I48.91 Unspecified atrial fibrillation; M19.90 Unspecified osteoarthritis, unspecified site; F32.9 Major depressive disorder, single episode, unspecified; F41.9 Anxiety disorder, unspecified; B19.20 Unspecified viral hepatitis C without hepatic coma; Z86.14 Personal history of Methicillin resistant Staphylococcus aureus infection; Z85.46 Personal history of malignant neoplasm of prostate; Z72.89 Other problems related to lifestyle; Z98.890 Other specified postprocedural states; Z79.899 Other long term (current) drug therapy; Z88.8 Allergy status to other drugs, medicaments and biological substances
CPT/HCPCS: 36415 ×2; 49505; 80048; 80053; 85025 ×2; 88302; 93005; C1781; J0330; J0690; J1100; J2175; J2250; J2405; J2704; J3010; J3490 ×4; J7120

== ENCOUNTER 2017-11-23 12:47 | Emergency (ER) | payer MEDICARE, OTHER ==
[~2017-11-23] VITALS: Ht 170.2 cm; Wt 77.3 kg
[~2017-11-23 12:47] MED LIST changes: -BUPIVACAINE HCL/PF 0.5% 30 ML VIAL ONE; -CeFAZolin 2 GM/DEXTROSE 50 ML IV ONE; -LIDOCAINE HCL 2%/EPI 1:200,000/PF 20 ML VIAL ONE; -RINGERS SOLUTION,LACTATED 1,000 ML IV ONE
[2017-11-23 12:49] VITALS: BP 116/82
== END 2017-11-23 14:53 | disposition left against medical advice (07) ==
LOC: EMS 12:49
DX: G89.18 Other acute postprocedural pain (principal); Z53.21 Procedure and treatment not carried out due to patient leaving prior to being seen by health care provider

== ENCOUNTER 2017-11-23 18:01 | Emergency (ER) | payer MEDICARE, OTHER ==
[~2017-11-23] VITALS: Ht 170.2 cm; Wt 75.0 kg
[2017-11-23 18:44] VITALS: BP 107/70
== END 2017-11-23 23:53 | disposition left against medical advice (07) ==
LOC: EMS 18:03
DX: R10.32 Left lower quadrant pain (principal); J44.9 Chronic obstructive pulmonary disease, unspecified; K21.9 Gastro-esophageal reflux disease without esophagitis; I10 Essential (primary) hypertension; I48.91 Unspecified atrial fibrillation; F17.210 Nicotine dependence, cigarettes, uncomplicated; Z53.21 Procedure and treatment not carried out due to patient leaving prior to being seen by health care provider

== ENCOUNTER 2017-12-25 20:40 | Inpatient (IN) | payer MEDICARE, MEDICAID ==
[~2017-12-25] VITALS: Ht 170.2 cm; Wt 71.8 kg
[~2017-12-25 20:40] MED LIST changes: -CEPH500 PO
[2017-12-25] MEDS ORDERED: LOPERAMIDE HCL 2 MG CAPSULE PO PRN (21:00)
[2017-12-25] MEDS ORDERED: ESZOPICLONE 2 MG TABLET PO PRN (21:00)
[2017-12-25] MEDS ORDERED: LORazepam 2 MG TABLET PO PRN (21:00)
[2017-12-25] MEDS ORDERED: HydrOXYzine PAMOATE 50 MG CAPSULE PO PRN ×2 (21:00)
[2017-12-25] MEDS ORDERED: GuaiFENesin/D-METHORPHAN [SUGAR-FREE] 200-20MG/10 ML SYRUP UDCUP PO PRN (21:00)
[2017-12-25] MEDS ORDERED: CYANOCOBALAMIN 1,000 MCG/ML VIAL IM ONE (21:00)
[2017-12-25 21:20] VITALS: BP 133/80
[2017-12-25 22:30] VITALS: BP 122/94
[2017-12-25 23:22] VITALS: BP 100/80
[2017-12-26] VITALS (7 sets, daily range): BP systolic 104–123; BP diastolic 60–84
[2017-12-26] MEDS ORDERED: LORazepam 2 MG TABLET PO PRN (07:00)
[2017-12-26 07:50] LABS: BASOPHILS % (AUTO) 0.6 % (0.0-2.0); EOSINOPHILS % (AUTO) 5.2 % (1.0-6.0); HEMATOCRIT 39.6 % (41-53); HEMOGLOBIN 13.4 g/dL (13.5-17.5); LYMPHOCYTES % (AUTO) 12.9 % (22.0-44.0); MEAN CORPUSCULAR HEMOGLOBIN 30.2 pg (26.0-34.0); MEAN CORPUSCULAR HGB CONC 33.8 G/dL (31.0-37.0); MEAN CORPUSCULAR VOLUME 90 fL (80-100); MONOCYTES # (AUTO) 0.7 K/uL (0.1-1.0); MONOCYTES % (AUTO) 8.4 % (2.0-9.0); NEUTROPHILS # (AUTO) 5.7 K/uL (1.8-7.7); NEUTROPHILS % (AUTO) 72.9 % (40.0-70.0); PLATELET COUNT (AUTO) 218 K/uL (150-450); RED BLOOD CELL COUNT(AUTO) 4.43 MIL/uL (4.50-5.90); RED CELL DISTRIBUTION WIDTH 16.7 % (11.5-14.5)
[2017-12-26 07:51] LABS: HEMOGLOBIN A1C 5.5 % (4.5-6.2)
[2017-12-26 08:08] LABS: ALANINE AMINOTRANSFERASE 26 U/L (12-78); ALBUMIN 3.5 g/dL (3.4-5.0); ALKALINE PHOSPHATASE 59 U/L (46-116); ANION GAP 8 mmol/L (8-16); ASPARTATE AMINOTRANSFERASE 26 U/L (15-37); BILIRUBIN,TOTAL 0.6 mg/dL (0.1-1.0); CALCIUM, TOTAL 8.5 mg/dL (8.8-10.5); CARBON DIOXIDE 27 mmol/L (22-29); CHLORIDE 102 mmol/L (98-107); CHOL/HDL RATIO 1.6 (4.2-7.3); CHOLESTEROL 173 mg/dL (131-200); CREATININE 0.74 mg/dL (0.60-1.30); FREE T4 (FREE THYROXINE) 0.94 ng/dL (0.76-1.46); GLOMERULAR FILTR. RATE CALC > 60 mL/min (>60); GLUCOSE,RANDOM 74 mg/dL (70-110); HDL CHOLESTEROL 108 mg/dL (40-60); LDL CHOL (CALC.) 57 mg/dL (0-130); POTASSIUM 4.4 mmol/L (3.5-5.1); SODIUM SERUM 137 mmol/L (136-145); THYROID STIMULATING HORMONE 0.64 uIU/mL (0.36-3.74); TOTAL PROTEIN, SERUM 7.6 g/dL (6.4-8.2); TRIGLYCERIDES 39 mg/dL (15-150); UREA NITROGEN, BLOOD 13 mg/dL (7-18)
[2017-12-26] MEDS: LevETIRAcetam 500 MG TABLET PO SCH ×2 (08:25→16:34)
[2017-12-26] MEDS: PANTOPRAZOLE SODIUM 40 MG DR TABLET PO SCH (08:25)
[2017-12-26] MEDS: FOLIC ACID 1 MG TABLET PO SCH (08:25)
[2017-12-26] MEDS: MULTIVITAMINS WITH MINERALS, THERAPEUTIC TABLET PO SCH (08:26)
[2017-12-26] MEDS: NICOTINE 21 MG/24 HOUR PATCH TD SCH (08:26)
[2017-12-26] MEDS: THIAMINE HCL 100 MG TABLET PO SCH ×2 (08:26→16:34)
[2017-12-26] MEDS: CarBAMazepine 200 MG TABLET PO SCH ×2 (08:26→16:34)
[2017-12-26] MEDS: LORazepam 2 MG TABLET PO SCH ×4 (08:26→20:28)
[2017-12-27 06:19] VITALS: BP 116/70
[2017-12-27] MEDS: CarBAMazepine 200 MG TABLET PO SCH ×2 (08:22→16:26)
[2017-12-27] MEDS: LevETIRAcetam 500 MG TABLET PO SCH ×2 (08:22→16:25)
[2017-12-27] MEDS: FOLIC ACID 1 MG TABLET PO SCH (08:23)
[2017-12-27] MEDS: MULTIVITAMINS WITH MINERALS, THERAPEUTIC TABLET PO SCH (08:23)
[2017-12-27] MEDS: LORazepam 2 MG TABLET PO SCH ×4 (08:23→20:25)
[2017-12-27] MEDS: THIAMINE HCL 100 MG TABLET PO SCH ×2 (08:23→16:25)
[2017-12-27] MEDS: PANTOPRAZOLE SODIUM 40 MG DR TABLET PO SCH (08:23)
[2017-12-27] MEDS: NICOTINE 21 MG/24 HOUR PATCH TD SCH (08:23)
[2017-12-27 08:36] VITALS: BP 112/77
[2017-12-27 12:13] VITALS: BP 110/80
[2017-12-27] MEDS: ACETAMINOPHEN 325 MG TABLET PO PRN (12:13)
[2017-12-27 13:45] VITALS: BP 116/70
[2017-12-27 16:11] VITALS: BP 130/76
[2017-12-27] MEDS: TraMADol HCL 50 MG TABLET PO PRN ×2 (16:27→20:56)
[2017-12-27 20:57] VITALS: BP 129/84
[2017-12-28] VITALS: BP 124/88
[2017-12-28 03:06] VITALS: BP 122/90
[2017-12-28] MEDS ORDERED: LORazepam 1 MG TABLET PO PRN (07:00)
[2017-12-28 08:10] VITALS: BP 110/74
[2017-12-28] MEDS: CarBAMazepine 200 MG TABLET PO SCH ×2 (08:11→16:37)
[2017-12-28] MEDS: LevETIRAcetam 500 MG TABLET PO SCH ×2 (08:11→16:37)
[2017-12-28] MEDS: MULTIVITAMINS WITH MINERALS, THERAPEUTIC TABLET PO SCH (08:11)
[2017-12-28] MEDS: LORazepam 1 MG TABLET PO SCH ×4 (08:12→20:44)
[2017-12-28] MEDS: FOLIC ACID 1 MG TABLET PO SCH (08:12)
[2017-12-28] MEDS: NICOTINE 21 MG/24 HOUR PATCH TD SCH (08:12)
[2017-12-28] MEDS: THIAMINE HCL 100 MG TABLET PO SCH ×2 (08:12→16:37)
[2017-12-28] MEDS: PANTOPRAZOLE SODIUM 40 MG DR TABLET PO SCH (08:12)
[2017-12-28] MEDS ORDERED: FLUoxetine HCL 10 MG CAPSULE PO SCH (09:00)
[2017-12-28 09:54] VITALS: BP 110/74
[2017-12-28] MEDS: DENTURE ADHESIVE 68 GM CREAM DT PRN (12:13)
[2017-12-28] MEDS ORDERED: ACETAMINOPHEN 325 MG TABLET PO PRN (12:30)
[2017-12-28 16:13] VITALS: BP 123/85
[2017-12-28 16:14] VITALS: BP 123/85
[2017-12-28] MEDS: QUEtiapine FUMARATE 300 MG TABLET PO SCH (20:44)
[2017-12-29 02:14] VITALS: BP 111/70
[2017-12-29 02:25] VITALS: BP 111/70
[2017-12-29] MEDS ORDERED: LORazepam 1 MG TABLET PO PRN (07:00)
[2017-12-29] MEDS: LevETIRAcetam 500 MG TABLET PO SCH ×2 (08:19→16:49)
[2017-12-29] MEDS: FLUoxetine HCL 20 MG CAPSULE PO SCH (08:20)
[2017-12-29] MEDS: THIAMINE HCL 100 MG TABLET PO SCH ×2 (08:20→16:50)
[2017-12-29] MEDS: MULTIVITAMINS WITH MINERALS, THERAPEUTIC TABLET PO SCH (08:20)
[2017-12-29] MEDS: CarBAMazepine 200 MG TABLET PO SCH ×2 (08:20→16:50)
[2017-12-29] MEDS: FOLIC ACID 1 MG TABLET PO SCH (08:20)
[2017-12-29] MEDS: NICOTINE 21 MG/24 HOUR PATCH TD SCH (08:21)
[2017-12-29] MEDS: PANTOPRAZOLE SODIUM 40 MG DR TABLET PO SCH (08:21)
[2017-12-29 08:31] VITALS: BP 108/58
[2017-12-29 09:23] LABS: AMPHET/METH SCREEN,URINE NEGATIVE (NEGATIVE); BARBITURATE SCREEN, URINE NEGATIVE (NEGATIVE); BENZODIAZEPINES SCREEN,URINE NEGATIVE (NEGATIVE); CANNABINOID SCREEN,URINE NEGATIVE (NEGATIVE); COCAINE SCREEN,URINE NEGATIVE (NEGATIVE); METHADONE SCREEN, URINE NEGATIVE (NEGATIVE); OPIATE SCREEN,URINE NEGATIVE (NEGATIVE)
[2017-12-29 09:25] LABS: PHENCYCLIDINE SCREEN,URINE NEGATIVE (NEGATIVE)
[2017-12-29 10:06] LABS: APPEARANCE,URINE CLEAR (CLEAR); BILIRUBIN,URINE NEGATIVE (NEGATIVE); GLUCOSE, URINE (UA) NEGATIVE (NEGATIVE); KETONES,URINE NEGATIVE (NEGATIVE); LEUKOCYTE ESTERASE ,URINE NEGATIVE (NEGATIVE); NITRATE,URINE NEGATIVE (NEGATIVE); OCCULT BLOOD,URINE NEGATIVE (NEGATIVE); PH,URINE 6.5 (5.0-8.0); PROTEIN,URINE NEGATIVE (NEGATIVE); UROBILINOGEN,URINE 0.2 mg/dL (<=1.0)
[2017-12-29 16:16] VITALS: BP 106/76
[2017-12-29 16:24] VITALS: BP 106/76
[2017-12-29] MEDS: ACETAMINOPHEN 325 MG TABLET PO PRN (20:09)
[2017-12-29] MEDS: QUEtiapine FUMARATE 300 MG TABLET PO SCH (20:39)
[2017-12-30 02:24] VITALS: BP 102/70
[2017-12-30] MEDS: MULTIVITAMINS WITH MINERALS, THERAPEUTIC TABLET PO SCH (08:11)
[2017-12-30] MEDS: LevETIRAcetam 500 MG TABLET PO SCH ×2 (08:12→16:36)
[2017-12-30] MEDS: FLUoxetine HCL 20 MG CAPSULE PO SCH (08:12)
[2017-12-30] MEDS: FOLIC ACID 1 MG TABLET PO SCH (08:12)
[2017-12-30] MEDS: THIAMINE HCL 100 MG TABLET PO SCH ×2 (08:12→16:36)
[2017-12-30] MEDS: PANTOPRAZOLE SODIUM 40 MG DR TABLET PO SCH (08:12)
[2017-12-30] MEDS: NICOTINE 21 MG/24 HOUR PATCH TD SCH (08:13)
[2017-12-30 08:53] VITALS: BP 107/72
[2017-12-30] MEDS ORDERED: CarBAMazepine 200 MG TABLET PO ONE (09:00)
[2017-12-30] MEDS ORDERED: BISACODYL 5 MG EC TABLET PO PRN (10:00)
[2017-12-30] MEDS ORDERED: MAGNESIUM HYDROXIDE SUSPENSION 30 ML UDCUP PO PRN (10:00)
[2017-12-30] MEDS: DENTURE ADHESIVE 68 GM CREAM DT PRN (12:16)
[2017-12-30 16:16] VITALS: BP 123/74
[2017-12-30] MEDS: DOCUSATE SODIUM 250 MG CAPSULE PO SCH (16:36)
[2017-12-30] MEDS: ACETAMINOPHEN 325 MG TABLET PO PRN (19:28)
[2017-12-30 19:30] VITALS: BP 119/84
[2017-12-30] MEDS: QUEtiapine FUMARATE 300 MG TABLET PO SCH (20:45)
[2017-12-31 00:47] VITALS: BP 100/64
[2017-12-31] MEDS ORDERED: FLUO-191 PO (07:58)
[2017-12-31] MEDS ORDERED: QUET25TA PO (07:58)
[2017-12-31] MEDS ORDERED: DOCU250C91 PO (07:58)
[2017-12-31 08:25] VITALS: BP 115/75
[2017-12-31] MEDS: LevETIRAcetam 500 MG TABLET PO SCH (08:36)
[2017-12-31] MEDS: THIAMINE HCL 100 MG TABLET PO SCH (08:36)
[2017-12-31] MEDS: FLUoxetine HCL 20 MG CAPSULE PO SCH (08:36)
[2017-12-31] MEDS: FOLIC ACID 1 MG TABLET PO SCH (08:36)
[2017-12-31] MEDS: DOCUSATE SODIUM 250 MG CAPSULE PO SCH (08:36)
[2017-12-31] MEDS: MULTIVITAMINS WITH MINERALS, THERAPEUTIC TABLET PO SCH (08:36)
[2017-12-31] MEDS: PANTOPRAZOLE SODIUM 40 MG DR TABLET PO SCH (08:36)
[2017-12-31] MEDS: NICOTINE 21 MG/24 HOUR PATCH TD SCH (08:37)
[2017-12-31] MEDS ORDERED: QUET300T2 PO (09:12)
== END 2017-12-31 14:30 | disposition home or self-care (01) | DRG 885 ==
LOC: B2X 21:03
PROVIDERS: ADMIT Psychiatry & Neurology Psychiatry; ATTEND Psychiatry & Neurology Psychiatry
DX: F25.0 Schizoaffective disorder, bipolar type (principal); R45.851 Suicidal ideations; I85.00 Esophageal varices without bleeding; F32.9 Major depressive disorder, single episode, unspecified; F10.229 Alcohol dependence with intoxication, unspecified; R56.9 Unspecified convulsions; N40.0 Benign prostatic hyperplasia without lower urinary tract symptoms; K59.00 Constipation, unspecified; K21.0 Gastro-esophageal reflux disease with esophagitis; J44.9 Chronic obstructive pulmonary disease, unspecified; I48.91 Unspecified atrial fibrillation; I10 Essential (primary) hypertension; D64.9 Anemia, unspecified; M54.9 Dorsalgia, unspecified; G89.29 Other chronic pain; Z56.0 Unemployment, unspecified; Z59.0 Homelessness; Z91.19 Patient's noncompliance with other medical treatment and regimen; Z88.8 Allergy status to other drugs, medicaments and biological substances; Z79.899 Other long term (current) drug therapy
CPT/HCPCS: 80307; 82652; 83036; 84439; 84443; 87081; G0482; J3420

== ENCOUNTER 2018-02-14 23:29 | Emergency (ER) | payer MEDICARE, OTHER ==
[~2018-02-14] VITALS: Ht 170.2 cm; Wt 70.5 kg
[~2018-02-14 23:29] MED LIST changes: +DOCU250C91 PO; -DULO20CA30 PO; +FLUO-191 PO; -PALI6 PO; +QUET300T2 PO
[2018-02-15] MEDS ORDERED: KETOROLAC TROMETHAMINE 60 MG/2 ML VIAL IM ONE (00:15)
[2018-02-15] MEDS ORDERED: HYDROCODONE/ACETAMINOPHEN 5-325 MG TABLET PO ONE (00:15)
[2018-02-15 01:01] VITALS: BP 121/81
== END 2018-02-15 01:05 | disposition home or self-care (01) ==
LOC: EMS 23:30
DX: S42.252A Displaced fracture of greater tuberosity of left humerus, initial encounter for closed fracture (principal); F10.229 Alcohol dependence with intoxication, unspecified; I10 Essential (primary) hypertension; K21.9 Gastro-esophageal reflux disease without esophagitis; J44.9 Chronic obstructive pulmonary disease, unspecified; I48.91 Unspecified atrial fibrillation; F17.210 Nicotine dependence, cigarettes, uncomplicated; Y90.9 Presence of alcohol in blood, level not specified; Z88.8 Allergy status to other drugs, medicaments and biological substances; W01.0XXA Fall on same level from slipping, tripping and stumbling without subsequent striking against object, initial encounter; Y93.89 Activity, other specified; Y92.89 Other specified places as the place of occurrence of the external cause; Y99.8 Other external cause status
CPT/HCPCS: 29105; 73030; 96372; 99284; 99406; J1885; 29240

== ENCOUNTER 2018-03-07 13:52 | Emergency (ER) | payer MEDICARE, MEDICAID ==
[~2018-03-07] VITALS: Ht 170.2 cm; Wt 70.5 kg
[2018-03-07 17:07] VITALS: BP 134/77
== END 2018-03-07 17:14 | disposition home or self-care (01) ==
LOC: EMS 14:07
DX: F32.9 Major depressive disorder, single episode, unspecified (principal); F10.10 Alcohol abuse, uncomplicated; I48.91 Unspecified atrial fibrillation; F41.9 Anxiety disorder, unspecified; F31.9 Bipolar disorder, unspecified; J44.9 Chronic obstructive pulmonary disease, unspecified; K21.9 Gastro-esophageal reflux disease without esophagitis; F20.9 Schizophrenia, unspecified; I10 Essential (primary) hypertension; F17.210 Nicotine dependence, cigarettes, uncomplicated; Z96.649 Presence of unspecified artificial hip joint; Z88.8 Allergy status to other drugs, medicaments and biological substances
CPT/HCPCS: 99284

== ENCOUNTER 2018-04-06 11:54 | Inpatient (IN) | payer MEDICARE, MEDICAID ==
[2018-04-06] VITALS (7 sets, daily range): BP systolic 115–136; BP diastolic 72–86
[~2018-04-06] VITALS: Ht 170.2 cm; Wt 69.2 kg
[2018-04-06] MEDS ORDERED: ZOLPIDEM TARTRATE 10 MG TABLET PO PRN ×2 (12:45→13:30)
[2018-04-06] MEDS ORDERED: OLANZapine 5 MG RAPDIS TABLET PO PRN (12:45)
[2018-04-06] MEDS ORDERED: LORazepam 2 MG TABLET PO PRN ×2 (12:45→13:30)
[2018-04-06] MEDS ORDERED: HydrOXYzine PAMOATE 50 MG CAPSULE PO PRN (13:30)
[2018-04-06] MEDS ORDERED: CloNIDine HCL 0.1 MG TABLET PO PRN (13:30)
[2018-04-06] MEDS ORDERED: DIAZEPAM 10 MG TABLET PO PRN (13:30)
[2018-04-06] MEDS ORDERED: LOPERAMIDE HCL 2 MG CAPSULE PO PRN (13:30)
[2018-04-06] MEDS ORDERED: MAG HYDROX/AL HYDROX/SIMETH ES 30 ML SUSPENSION UDCUP PO PRN ×2 (13:30)
[2018-04-06] MEDS ORDERED: MAGNESIUM HYDROXIDE SUSPENSION 30 ML UDCUP PO PRN (13:30)
[2018-04-06] MEDS ORDERED: QUEtiapine FUMARATE 100 MG TABLET PO PRN (13:30)
[2018-04-06] MEDS ORDERED: ACETAMINOPHEN 325 MG TABLET PO PRN (15:30)
[2018-04-06] MEDS ORDERED: CYANOCOBALAMIN 1,000 MCG/ML VIAL IM ONE (15:30)
[2018-04-06] MEDS: PHENYTOIN SODIUM 100 MG ER CAPSULE PO SCH ×2 (16:48→21:40)
[2018-04-06] MEDS: GABAPENTIN 300 MG CAPSULE PO SCH ×2 (16:48→21:40)
[2018-04-06] MEDS: IBUPROFEN 600 MG TABLET PO PRN (16:49)
[2018-04-06] MEDS: CloNIDine HCL 0.1 MG TABLET PO SCH ×2 (16:50→21:41)
[2018-04-06] MEDS: LevETIRAcetam 500 MG TABLET PO SCH (16:50)
[2018-04-06] MEDS ORDERED: LevETIRAcetam 500 MG TABLET PO SCH ×2 (17:00→21:00)
[2018-04-06] MEDS: DOCUSATE SODIUM 250 MG CAPSULE PO SCH (18:57)
[2018-04-06] MEDS: NICOTINE 14 MG/24 HOUR PATCH TD SCH (19:02)
[2018-04-06] MEDS: QUEtiapine FUMARATE 100 MG TABLET PO SCH (21:41)
[2018-04-07] VITALS (11 sets, daily range): BP systolic 105–129; BP diastolic 60–88
[2018-04-07] MEDS ORDERED: PNEUMOCOCCAL VACCINE POLYVALENT 0.5 ML VIAL [PPSV23] IM ONE (03:15)
[2018-04-07] MEDS ORDERED: -PHARMACY VACCINE NOTE- MISC ONE (03:15)
[2018-04-07] MEDS: CloNIDine HCL 0.1 MG TABLET PO SCH ×4 (05:22→21:10)
[2018-04-07] MEDS ORDERED: DIAZEPAM 10 MG TABLET PO PRN (07:00)
[2018-04-07 08:22] LABS: APPEARANCE,URINE CLEAR (CLEAR); BILIRUBIN,URINE NEGATIVE (NEGATIVE); GLUCOSE, URINE (UA) NEGATIVE (NEGATIVE); KETONES,URINE NEGATIVE (NEGATIVE); LEUKOCYTE ESTERASE ,URINE NEGATIVE (NEGATIVE); NITRATE,URINE NEGATIVE (NEGATIVE); OCCULT BLOOD,URINE NEGATIVE (NEGATIVE); PROTEIN,URINE NEGATIVE (NEGATIVE); UROBILINOGEN,URINE 0.2 mg/dL (<=1.0)
[2018-04-07 08:24] LABS: AMPHET/METH SCREEN,URINE NEGATIVE (NEGATIVE); BARBITURATE SCREEN, URINE NEGATIVE (NEGATIVE); BENZODIAZEPINES SCREEN,URINE NEGATIVE (NEGATIVE); CANNABINOID SCREEN,URINE NEGATIVE (NEGATIVE); COCAINE SCREEN,URINE NEGATIVE (NEGATIVE); METHADONE SCREEN, URINE NEGATIVE (NEGATIVE); OPIATE SCREEN,URINE NEGATIVE (NEGATIVE); PHENCYCLIDINE SCREEN,URINE NEGATIVE (NEGATIVE)
[2018-04-07] MEDS: NICOTINE 14 MG/24 HOUR PATCH TD SCH (09:00)
[2018-04-07] MEDS: FOLIC ACID 1 MG TABLET PO SCH (09:30)
[2018-04-07] MEDS: GABAPENTIN 300 MG CAPSULE PO SCH ×4 (09:30→21:10)
[2018-04-07] MEDS: PANTOPRAZOLE SODIUM 40 MG DR TABLET PO SCH (09:30)
[2018-04-07] MEDS: DOCUSATE SODIUM 250 MG CAPSULE PO SCH ×2 (09:31→17:03)
[2018-04-07] MEDS: THIAMINE HCL 100 MG TABLET PO SCH (09:31)
[2018-04-07] MEDS: DIAZEPAM 10 MG TABLET PO SCH ×4 (09:31→21:10)
[2018-04-07] MEDS: LevETIRAcetam 500 MG TABLET PO SCH ×2 (09:32→17:03)
[2018-04-07] MEDS: DULoxetine HCL 20 MG CAPSULE PO SCH (09:32)
[2018-04-07] MEDS: PHENYTOIN SODIUM 100 MG ER CAPSULE PO SCH ×4 (09:32→21:10)
[2018-04-07] MEDS: ACETAMINOPHEN 325 MG TABLET PO PRN (10:32)
[2018-04-07] MEDS: IBUPROFEN 600 MG TABLET PO PRN (19:19)
[2018-04-07] MEDS: QUEtiapine FUMARATE 100 MG TABLET PO SCH (21:10)
[2018-04-08] VITALS (9 sets, daily range): BP systolic 102–123; BP diastolic 68–85
[2018-04-08] MEDS: CloNIDine HCL 0.1 MG TABLET PO SCH ×4 (06:58→20:24)
[2018-04-08 08:10] LABS: EOSINOPHILS % (AUTO) 8.8 % (1.0-6.0); HEMATOCRIT 35.5 % (41-53); LYMPHOCYTES # (AUTO) 0.9 K/uL (1.0-4.8); LYMPHOCYTES % (AUTO) 31.9 % (22.0-44.0); MEAN CORPUSCULAR HEMOGLOBIN 30.4 pg (26.0-34.0); MEAN CORPUSCULAR HGB CONC 33.7 G/dL (31.0-37.0); MEAN CORPUSCULAR VOLUME 90 fL (80-100); MONOCYTES # (AUTO) 0.3 K/uL (0.1-1.0); MONOCYTES % (AUTO) 9.3 % (2.0-9.0); NEUTROPHILS # (AUTO) 1.3 K/uL (1.8-7.7); PLATELET COUNT (AUTO) 113 K/uL (150-450); RED BLOOD CELL COUNT(AUTO) 3.93 MIL/uL (4.50-5.90); RED CELL DISTRIBUTION WIDTH 16.6 % (11.5-14.5)
[2018-04-08 08:17] LABS: HEMOGLOBIN A1C 4.6 % (4.5-6.2)
[2018-04-08 08:28] LABS: ALANINE AMINOTRANSFERASE 142 U/L (12-78); ALBUMIN 3.3 g/dL (3.4-5.0); ALKALINE PHOSPHATASE 64 U/L (46-116); ANION GAP 4 mmol/L (8-16); ASPARTATE AMINOTRANSFERASE 138 U/L (15-37); BILIRUBIN,TOTAL 0.6 mg/dL (0.1-1.0); CALCIUM, TOTAL 8.9 mg/dL (8.8-10.5); CARBON DIOXIDE 30 mmol/L (22-29); CHLORIDE 100 mmol/L (98-107); CHOL/HDL RATIO 1.4 (4.2-7.3); CHOLESTEROL 184 mg/dL (131-200); CREATININE 0.66 mg/dL (0.60-1.30); GLOMERULAR FILTR. RATE CALC > 60 mL/min (>60); GLUCOSE,RANDOM 80 mg/dL (70-110); HDL CHOLESTEROL 133 mg/dL (40-60); LDL CHOL (CALC.) 44 mg/dL (0-130); POTASSIUM 4.5 mmol/L (3.5-5.1); SODIUM SERUM 134 mmol/L (136-145); THYROID STIMULATING HORMONE 0.43 uIU/mL (0.36-3.74); TRIGLYCERIDES 35 mg/dL (15-150); UREA NITROGEN, BLOOD 11 mg/dL (7-18)
[2018-04-08 08:45] LABS: FREE T4 (FREE THYROXINE) 0.83 ng/dL (0.76-1.46)
[2018-04-08] MEDS: DULoxetine HCL 20 MG CAPSULE PO SCH (08:53)
[2018-04-08] MEDS: DOCUSATE SODIUM 250 MG CAPSULE PO SCH ×2 (08:53→17:01)
[2018-04-08] MEDS: PHENYTOIN SODIUM 100 MG ER CAPSULE PO SCH ×4 (08:53→20:24)
[2018-04-08] MEDS: LevETIRAcetam 500 MG TABLET PO SCH ×2 (08:54→17:00)
[2018-04-08] MEDS: GABAPENTIN 300 MG CAPSULE PO SCH ×4 (08:54→20:23)
[2018-04-08] MEDS: DIAZEPAM 10 MG TABLET PO SCH ×4 (08:54→20:24)
[2018-04-08] MEDS: FOLIC ACID 1 MG TABLET PO SCH (08:54)
[2018-04-08] MEDS: PANTOPRAZOLE SODIUM 40 MG DR TABLET PO SCH (08:54)
[2018-04-08] MEDS: NICOTINE 14 MG/24 HOUR PATCH TD SCH (08:55)
[2018-04-08] MEDS: THIAMINE HCL 100 MG TABLET PO SCH (08:55)
[2018-04-08] MEDS: ACETAMINOPHEN 325 MG TABLET PO PRN (12:23)
[2018-04-08] MEDS: QUEtiapine FUMARATE 100 MG TABLET PO SCH (20:24)
[2018-04-09] VITALS (7 sets, daily range): BP systolic 100–115; BP diastolic 68–76
[2018-04-09] MEDS: ACETAMINOPHEN 325 MG TABLET PO PRN ×2 (06:02→10:48)
[2018-04-09] MEDS: CloNIDine HCL 0.1 MG TABLET PO SCH ×4 (06:02→21:40)
[2018-04-09] MEDS ORDERED: DIAZEPAM 5 MG TABLET PO PRN (07:00)
[2018-04-09] MEDS: FOLIC ACID 1 MG TABLET PO SCH (08:49)
[2018-04-09] MEDS: DIAZEPAM 5 MG TABLET PO SCH ×4 (08:49→21:07)
[2018-04-09] MEDS: LevETIRAcetam 500 MG TABLET PO SCH ×2 (08:49→16:33)
[2018-04-09] MEDS: PHENYTOIN SODIUM 100 MG ER CAPSULE PO SCH ×4 (08:50→21:03)
[2018-04-09] MEDS: THIAMINE HCL 100 MG TABLET PO SCH (08:50)
[2018-04-09] MEDS: PANTOPRAZOLE SODIUM 40 MG DR TABLET PO SCH (08:50)
[2018-04-09] MEDS: DOCUSATE SODIUM 250 MG CAPSULE PO SCH ×2 (08:50→16:33)
[2018-04-09] MEDS: DULoxetine HCL 20 MG CAPSULE PO SCH (08:50)
[2018-04-09] MEDS: GABAPENTIN 300 MG CAPSULE PO SCH ×4 (08:50→21:03)
[2018-04-09] MEDS: NICOTINE 14 MG/24 HOUR PATCH TD SCH (08:51)
[2018-04-09] MEDS: QUEtiapine FUMARATE 100 MG TABLET PO SCH (21:03)
[2018-04-10] VITALS: BP 100/63
[2018-04-10 05:59] VITALS: BP 95/58
[2018-04-10] MEDS: CloNIDine HCL 0.1 MG TABLET PO SCH ×4 (06:00→20:12)
[2018-04-10] MEDS ORDERED: DIAZEPAM 5 MG TABLET PO PRN (07:00)
[2018-04-10 08:21] VITALS: BP 111/76
[2018-04-10 08:22] VITALS: BP 111/76
[2018-04-10] MEDS: DULoxetine HCL 20 MG CAPSULE PO SCH (09:00)
[2018-04-10] MEDS: LevETIRAcetam 500 MG TABLET PO SCH ×2 (09:30→16:47)
[2018-04-10] MEDS: PHENYTOIN SODIUM 100 MG ER CAPSULE PO SCH ×4 (09:30→20:11)
[2018-04-10] MEDS: GABAPENTIN 300 MG CAPSULE PO SCH ×4 (09:30→20:11)
[2018-04-10] MEDS: DOCUSATE SODIUM 250 MG CAPSULE PO SCH ×2 (09:31→16:47)
[2018-04-10] MEDS: THIAMINE HCL 100 MG TABLET PO SCH (09:31)
[2018-04-10] MEDS: PANTOPRAZOLE SODIUM 40 MG DR TABLET PO SCH (09:31)
[2018-04-10] MEDS: FOLIC ACID 1 MG TABLET PO SCH (09:31)
[2018-04-10] MEDS: NICOTINE 14 MG/24 HOUR PATCH TD SCH (09:34)
[2018-04-10 16:00] VITALS: BP 116/75
[2018-04-10 16:17] VITALS: BP 116/75
[2018-04-10] MEDS: QUEtiapine FUMARATE 100 MG TABLET PO SCH (20:13)
[2018-04-11 05:42] VITALS: BP 130/86
[2018-04-11] MEDS: CloNIDine HCL 0.1 MG TABLET PO SCH ×4 (06:17→21:27)
[2018-04-11 08:24] LABS: ALANINE AMINOTRANSFERASE 94 U/L (12-78); ALBUMIN 3.7 g/dL (3.4-5.0); ALKALINE PHOSPHATASE 72 U/L (46-116); ANION GAP 4 mmol/L (8-16); ASPARTATE AMINOTRANSFERASE 56 U/L (15-37); BILIRUBIN,TOTAL 0.3 mg/dL (0.1-1.0); CALCIUM, TOTAL 9.5 mg/dL (8.8-10.5); CARBON DIOXIDE 31 mmol/L (22-29); CHLORIDE 101 mmol/L (98-107); CREATININE 0.77 mg/dL (0.60-1.30); GLOMERULAR FILTR. RATE CALC > 60 mL/min (>60); GLUCOSE,RANDOM 77 mg/dL (70-110); POTASSIUM 4.5 mmol/L (3.5-5.1); SODIUM SERUM 136 mmol/L (136-145); TOTAL PROTEIN, SERUM 8.1 g/dL (6.4-8.2); UREA NITROGEN, BLOOD 14 mg/dL (7-18)
[2018-04-11] MEDS: DOCUSATE SODIUM 250 MG CAPSULE PO SCH ×2 (08:35→17:26)
[2018-04-11] MEDS: FOLIC ACID 1 MG TABLET PO SCH (08:36)
[2018-04-11] MEDS: PANTOPRAZOLE SODIUM 40 MG DR TABLET PO SCH (08:36)
[2018-04-11] MEDS: GABAPENTIN 300 MG CAPSULE PO SCH ×4 (08:36→21:05)
[2018-04-11] MEDS: PHENYTOIN SODIUM 100 MG ER CAPSULE PO SCH ×4 (08:36→21:27)
[2018-04-11] MEDS: DULoxetine HCL 20 MG CAPSULE PO SCH (08:36)
[2018-04-11] MEDS: LevETIRAcetam 500 MG TABLET PO SCH ×2 (08:36→17:25)
[2018-04-11] MEDS: THIAMINE HCL 100 MG TABLET PO SCH (08:37)
[2018-04-11] MEDS: NICOTINE 14 MG/24 HOUR PATCH TD SCH (08:38)
[2018-04-11 08:40] VITALS: BP 106/70
[2018-04-11] MEDS: ACETAMINOPHEN 325 MG TABLET PO PRN (09:20)
[2018-04-11] MEDS ORDERED: LEVE500T53 PO (14:58)
[2018-04-11] MEDS ORDERED: GABA-531 PO (14:58)
[2018-04-11] MEDS ORDERED: QUET100T33 PO (14:58)
[2018-04-11] MEDS ORDERED: PHENY100 PO (14:58)
[2018-04-11] MEDS ORDERED: DULO20CA30 PO (14:58)
[2018-04-11] MEDS: IBUPROFEN 600 MG TABLET PO PRN (15:59)
[2018-04-11 16:05] VITALS: BP 108/76
[2018-04-11] MEDS: QUEtiapine FUMARATE 100 MG TABLET PO SCH (21:06)
[2018-04-12 02:56] VITALS: BP 110/68
[2018-04-12] MEDS: IBUPROFEN 600 MG TABLET PO PRN ×2 (03:07→12:29)
[2018-04-12] MEDS: CloNIDine HCL 0.1 MG TABLET PO SCH ×2 (06:16→12:17)
[2018-04-12] MEDS: GABAPENTIN 300 MG CAPSULE PO SCH ×2 (07:58→12:17)
[2018-04-12] MEDS: THIAMINE HCL 100 MG TABLET PO SCH (07:58)
[2018-04-12] MEDS: DOCUSATE SODIUM 250 MG CAPSULE PO SCH (07:58)
[2018-04-12] MEDS: PANTOPRAZOLE SODIUM 40 MG DR TABLET PO SCH (07:58)
[2018-04-12] MEDS: FOLIC ACID 1 MG TABLET PO SCH (07:58)
[2018-04-12] MEDS: DULoxetine HCL 20 MG CAPSULE PO SCH (07:58)
[2018-04-12] MEDS: PHENYTOIN SODIUM 100 MG ER CAPSULE PO SCH ×2 (07:58→12:25)
[2018-04-12] MEDS: LevETIRAcetam 500 MG TABLET PO SCH (07:59)
[2018-04-12 08:01] VITALS: BP 107/72
[2018-04-12] MEDS: NICOTINE 14 MG/24 HOUR PATCH TD SCH (08:02)
[2018-04-12] MEDS ORDERED: PHEN100C23 PO (08:33)
[2018-04-12] MEDS ORDERED: QUET100T PO (08:33)
[2018-04-12] MEDS ORDERED: GABA-531 PO (08:33)
[2018-04-12] MEDS ORDERED: CLON-570 PO (08:33)
[2018-04-12] MEDS ORDERED: DULO20CA30 PO (08:33)
[2018-04-12 12:08] VITALS: BP 122/91
[2018-04-12] MEDS ORDERED: DISU250T6 PO (12:44)
[2018-04-12] MEDS ORDERED: DISULFIRAM 250 MG TABLET PO ONE (12:45)
[2018-04-13] MEDS ORDERED: DISULFIRAM 250 MG TABLET PO SCH (09:00)
== END 2018-04-12 13:30 | disposition home or self-care (01) | DRG 885 ==
LOC: B2S 13:55
PROVIDERS: ADMIT Psychiatry & Neurology Psychiatry; ATTEND Psychiatry & Neurology Psychiatry
DX: F25.9 Schizoaffective disorder, unspecified (principal); I85.00 Esophageal varices without bleeding; K21.0 Gastro-esophageal reflux disease with esophagitis; K59.00 Constipation, unspecified; F10.10 Alcohol abuse, uncomplicated; F17.200 Nicotine dependence, unspecified, uncomplicated; F29 Unspecified psychosis not due to a substance or known physiological condition; G40.909 Epilepsy, unspecified, not intractable, without status epilepticus; G47.00 Insomnia, unspecified; G62.9 Polyneuropathy, unspecified; I10 Essential (primary) hypertension; K70.10 Alcoholic hepatitis without ascites; M19.039 Primary osteoarthritis, unspecified wrist; N40.0 Benign prostatic hyperplasia without lower urinary tract symptoms; Z80.42 Family history of malignant neoplasm of prostate; Z81.8 Family history of other mental and behavioral disorders
CPT/HCPCS: 80307; 83036; 84439; 84443; 86592; J3420

== ENCOUNTER 2018-06-25 13:20 | Inpatient (IN) | payer MEDICARE, MEDICAID ==
[~2018-06-25] VITALS: Ht 170.2 cm; Wt 72.8 kg
[~2018-06-25 13:20] MED LIST changes: +CLON-570 PO; +DISU250T6 PO; +DULO20CA30 PO; -FLUO-191 PO; +GABA-531 PO; +PHEN100C23 PO; +PHENY100 PO; +QUET100T PO; +QUET100T33 PO; -QUET300T2 PO
[2018-06-25 13:59] LABS: BASOPHILS % (AUTO) 1.1 % (0.0-2.0); EOSINOPHILS % (AUTO) 4.2 % (1.0-6.0); HEMATOCRIT 36.4 % (41-53); HEMOGLOBIN 12.2 g/dL (13.5-17.5); LYMPHOCYTES # (AUTO) 2.5 K/uL (1.0-4.8); LYMPHOCYTES % (AUTO) 41.7 % (22.0-44.0); MEAN CORPUSCULAR HEMOGLOBIN 27.4 pg (26.0-34.0); MEAN CORPUSCULAR HGB CONC 33.4 G/dL (31.0-37.0); MEAN CORPUSCULAR VOLUME 82 fL (80-100); MONOCYTES # (AUTO) 0.3 K/uL (0.1-1.0); MONOCYTES % (AUTO) 5.1 % (2.0-9.0); NEUTROPHILS # (AUTO) 2.9 K/uL (1.8-7.7); NEUTROPHILS % (AUTO) 47.9 % (40.0-70.0); PLATELET COUNT (AUTO) 326 K/uL (150-450); RED BLOOD CELL COUNT(AUTO) 4.44 MIL/uL (4.50-5.90); RED CELL DISTRIBUTION WIDTH 18.9 % (11.5-14.5)
[2018-06-25 14:07] LABS: ANION GAP 10 mmol/L (8-16); CARBON DIOXIDE 29 mmol/L (22-29); CHLORIDE 107 mmol/L (98-107); CREATININE 0.64 mg/dL (0.60-1.30); GLOMERULAR FILTR. RATE CALC > 60 mL/min (>60); GLUCOSE,RANDOM 76 mg/dL (70-110); POTASSIUM 3.8 mmol/L (3.5-5.1); SODIUM SERUM 146 mmol/L (136-145); UREA NITROGEN, BLOOD 14 mg/dL (7-18)
[2018-06-25 14:15] LABS: ALANINE AMINOTRANSFERASE 27 U/L (12-78); ALBUMIN 3.7 g/dL (3.4-5.0); ALKALINE PHOSPHATASE 66 U/L (46-116); ASPARTATE AMINOTRANSFERASE 27 U/L (15-37); BILIRUBIN,TOTAL 0.3 mg/dL (0.1-1.0); TOTAL PROTEIN, SERUM 7.5 g/dL (6.4-8.2)
[2018-06-25] MEDS ORDERED: LORazepam 2 MG/ML VIAL IM ONE (17:15)
[2018-06-25] MEDS ORDERED: DiphenhydrAMINE HCL 50 MG/ML VIAL IM ONE (17:15)
[2018-06-25] MEDS ORDERED: HALOPERIDOL LACTATE 5 MG/ML VIAL IM ONE (17:15)
[2018-06-25] MEDS ORDERED: ZOLPIDEM TARTRATE 10 MG TABLET PO PRN (18:15)
[2018-06-25] MEDS ORDERED: LORazepam 2 MG TABLET PO PRN ×2 (18:15→18:30)
[2018-06-25] MEDS ORDERED: ESZOPICLONE 2 MG TABLET PO PRN (18:45)
[2018-06-25] MEDS: CarBAMazepine 200 MG TABLET PO SCH (20:47)
[2018-06-26] VITALS (9 sets, daily range): BP systolic 105–132; BP diastolic 68–88
[2018-06-26] MEDS ORDERED: PNEUMOCOCCAL VACCINE POLYVALENT 0.5 ML VIAL [PPSV23] IM ONE (04:15)
[2018-06-26] MEDS ORDERED: LORazepam 2 MG TABLET PO PRN (07:00)
[2018-06-26] MEDS: CarBAMazepine 200 MG TABLET PO SCH ×2 (08:42→16:47)
[2018-06-26] MEDS: LORazepam 2 MG TABLET PO SCH ×4 (08:42→20:35)
[2018-06-26] MEDS: LevETIRAcetam 500 MG TABLET PO SCH ×2 (08:42→16:47)
[2018-06-26 08:48] LABS: BASOPHILS % (AUTO) 0.8 % (0.0-2.0); EOSINOPHILS % (AUTO) 6.6 % (1.0-6.0); HEMATOCRIT 32.5 % (41-53); LYMPHOCYTES # (AUTO) 1.2 K/uL (1.0-4.8); MEAN CORPUSCULAR HEMOGLOBIN 27.9 pg (26.0-34.0); MEAN CORPUSCULAR HGB CONC 33.9 G/dL (31.0-37.0); MEAN CORPUSCULAR VOLUME 82 fL (80-100); MONOCYTES # (AUTO) 0.5 K/uL (0.1-1.0); MONOCYTES % (AUTO) 10.2 % (2.0-9.0); NEUTROPHILS % (AUTO) 58.4 % (40.0-70.0); PLATELET COUNT (AUTO) 306 K/uL (150-450); RED BLOOD CELL COUNT(AUTO) 3.95 MIL/uL (4.50-5.90); RED CELL DISTRIBUTION WIDTH 18.4 % (11.5-14.5)
[2018-06-26 09:25] LABS: ALANINE AMINOTRANSFERASE 29 U/L (12-78); ALBUMIN 3.4 g/dL (3.4-5.0); ALKALINE PHOSPHATASE 62 U/L (46-116); ANION GAP 6 mmol/L (8-16); ASPARTATE AMINOTRANSFERASE 41 U/L (15-37); BILIRUBIN,TOTAL 0.5 mg/dL (0.1-1.0); CALCIUM, TOTAL 8.2 mg/dL (8.8-10.5); CARBON DIOXIDE 29 mmol/L (22-29); CHLORIDE 105 mmol/L (98-107); CHOLESTEROL 149 mg/dL (131-200); CREATININE 0.68 mg/dL (0.60-1.30); FREE T4 (FREE THYROXINE) 0.83 ng/dL (0.76-1.46); GLOMERULAR FILTR. RATE CALC > 60 mL/min (>60); GLUCOSE,RANDOM 79 mg/dL (70-110); HDL CHOLESTEROL 75 mg/dL (40-60); LDL CHOL (CALC.) 67 mg/dL (0-130); POTASSIUM 4.3 mmol/L (3.5-5.1); SODIUM SERUM 140 mmol/L (136-145); THYROID STIMULATING HORMONE 0.33 uIU/mL (0.36-3.74); TRIGLYCERIDES 36 mg/dL (15-150); UREA NITROGEN, BLOOD 19 mg/dL (7-18)
[2018-06-26 10:22] LABS: HEMOGLOBIN A1C 5.4 % (4.5-6.2)
[2018-06-26] MEDS ORDERED: BISMUTH SUBSALICYLATE 524 MG/30 ML SUSPENSION UDCUP PO PRN (22:15)
[2018-06-26] MEDS ORDERED: DENTURE ADHESIVE 68 GM CREAM DT PRN (22:15)
[2018-06-27 00:30] VITALS: BP 116/80
[2018-06-27 04:00] VITALS: BP 110/74
[2018-06-27 04:30] VITALS: BP 114/78
[2018-06-27] MEDS ORDERED: CYANOCOBALAMIN 1,000 MCG/ML VIAL IM ONE (07:00)
[2018-06-27] MEDS: LevETIRAcetam 500 MG TABLET PO SCH ×2 (08:20→16:40)
[2018-06-27] MEDS: FOLIC ACID 1 MG TABLET PO SCH (08:20)
[2018-06-27] MEDS: CarBAMazepine 200 MG TABLET PO SCH ×2 (08:21→16:31)
[2018-06-27] MEDS: THIAMINE HCL 100 MG TABLET PO SCH (08:21)
[2018-06-27] MEDS: LORazepam 2 MG TABLET PO SCH ×4 (08:21→20:31)
[2018-06-27 08:44] VITALS: BP 123/77
[2018-06-27] MEDS ORDERED: MAGNESIUM HYDROXIDE SUSPENSION 30 ML UDCUP PO PRN (11:15)
[2018-06-27] MEDS ORDERED: ACETAMINOPHEN 325 MG TABLET PO PRN (11:15)
[2018-06-27] MEDS ORDERED: LOPERAMIDE HCL 2 MG CAPSULE PO PRN (11:15)
[2018-06-27] MEDS ORDERED: PROMETHAZINE HCL 25 MG TABLET PO PRN (11:15)
[2018-06-27] MEDS ORDERED: MAG HYDROX/AL HYDROX/SIMETH ES 30 ML SUSPENSION UDCUP PO PRN (11:15)
[2018-06-27 16:13] VITALS: BP 107/71
[2018-06-27] MEDS ORDERED: PHENY100 PO (16:19)
[2018-06-27] MEDS ORDERED: NALT50TA PO (16:19)
[2018-06-27] MEDS ORDERED: QUET100T33 PO (16:19)
[2018-06-27] MEDS ORDERED: LEVE500T53 PO (16:19)
[2018-06-27] MEDS ORDERED: GABA-531 PO (16:19)
[2018-06-27] MEDS ORDERED: CARB200T6 PO (16:19)
[2018-06-27] MEDS: GABAPENTIN 300 MG CAPSULE PO SCH (16:39)
[2018-06-27] MEDS: PHENYTOIN SODIUM 100 MG ER CAPSULE PO SCH (16:40)
[2018-06-27] MEDS ORDERED: QUEtiapine FUMARATE 100 MG TABLET PO SCH (21:00)
[2018-06-28 05:29] VITALS: BP 108/72
[2018-06-28] MEDS ORDERED: LORazepam 1 MG TABLET PO PRN (07:00)
[2018-06-28] MEDS: LevETIRAcetam 500 MG TABLET PO SCH (08:15)
[2018-06-28] MEDS: CarBAMazepine 200 MG TABLET PO SCH (08:15)
[2018-06-28] MEDS: GABAPENTIN 300 MG CAPSULE PO SCH (08:15)
[2018-06-28] MEDS: THIAMINE HCL 100 MG TABLET PO SCH (08:15)
[2018-06-28] MEDS: FOLIC ACID 1 MG TABLET PO SCH (08:15)
[2018-06-28] MEDS: PHENYTOIN SODIUM 100 MG ER CAPSULE PO SCH (08:15)
[2018-06-28 08:16] VITALS: BP 110/68
[2018-06-28] MEDS ORDERED: PHEN100C23 PO (08:29)
[2018-06-28] MEDS ORDERED: LEVE500T53 PO (08:30)
[2018-06-28 08:48] VITALS: BP 103/68
[2018-06-28] MEDS ORDERED: NALTREXONE HCL 50 MG TABLET PO SCH (09:00)
[2018-06-28] MEDS ORDERED: LORazepam 1 MG TABLET PO SCH (09:00)
[2018-06-29] MEDS ORDERED: LORazepam 1 MG TABLET PO PRN (07:00)
== END 2018-06-28 10:40 | disposition home or self-care (01) | DRG 885 ==
LOC: EMS 13:29 → B2X 18:21
PROVIDERS: ADMIT Psychiatry & Neurology Psychiatry; ATTEND Psychiatry & Neurology Psychiatry
DX: F25.0 Schizoaffective disorder, bipolar type (principal); F10.229 Alcohol dependence with intoxication, unspecified; R45.851 Suicidal ideations; F10.239 Alcohol dependence with withdrawal, unspecified; Y90.9 Presence of alcohol in blood, level not specified; J44.9 Chronic obstructive pulmonary disease, unspecified; K21.9 Gastro-esophageal reflux disease without esophagitis; F17.210 Nicotine dependence, cigarettes, uncomplicated; R45.850 Homicidal ideations; I48.91 Unspecified atrial fibrillation; I10 Essential (primary) hypertension; Z96.649 Presence of unspecified artificial hip joint; F15.90 Other stimulant use, unspecified, uncomplicated; K30 Functional dyspepsia; F41.9 Anxiety disorder, unspecified; Z79.899 Other long term (current) drug therapy; G89.29 Other chronic pain; Z56.0 Unemployment, unspecified; Z59.0 Homelessness; Z91.19 Patient's noncompliance with other medical treatment and regimen; Z88.8 Allergy status to other drugs, medicaments and biological substances
CPT/HCPCS: 83036; 84439; 84443; 96372; G0480; J1200; J1630; J2060; J3420

== ENCOUNTER → 2018-09-09 | Outpatient (CLI) | payer MEDICARE, OTHER ==
[~2018-09-09] MED LIST changes: +CARB200T6 PO; -CLON-570 PO; -DISU250T6 PO; -DOCU250C91 PO; -DULO20CA30 PO; +NALT50TA PO; -PANT40TA25 PO; -PHEN100C23 PO; -QUET100T PO
[2018-09-12 16:24] LABS: CHOL/HDL RATIO 1.5 (4.2-7.3); HEMOGLOBIN A1C 5.3 % (4.5-6.2)
== END | disposition home or self-care (01) ==
LOC: LABMN 10:40
PROVIDERS: ATTEND Psychiatry & Neurology Psychiatry
DX: F25.0 Schizoaffective disorder, bipolar type (principal); I25.10 Atherosclerotic heart disease of native coronary artery without angina pectoris; I10 Essential (primary) hypertension; J44.9 Chronic obstructive pulmonary disease, unspecified; Z88.8 Allergy status to other drugs, medicaments and biological substances; Z72.0 Tobacco use; Z79.899 Other long term (current) drug therapy
CPT/HCPCS: 82947; 83036

== ENCOUNTER 2019-02-04 11:54 | Emergency (ER) | payer MEDICARE, OTHER ==
[~2019-02-04] VITALS: Ht 170.2 cm; Wt 72.7 kg
[2019-02-04 13:01] LABS: BASOPHILS % (AUTO) 2.2 % (0.0-2.0); EOSINOPHILS % (AUTO) 1.5 % (1.0-6.0); HEMOGLOBIN 12.6 g/dL (13.5-17.5); LYMPHOCYTES # (AUTO) 1.2 K/uL (1.0-4.8); LYMPHOCYTES % (AUTO) 33.9 % (22.0-44.0); MEAN CORPUSCULAR HEMOGLOBIN 26.7 pg (26.0-34.0); MEAN CORPUSCULAR HGB CONC 32.2 G/dL (31.0-37.0); MEAN CORPUSCULAR VOLUME 83 fL (80-100); MONOCYTES # (AUTO) 0.2 K/uL (0.1-1.0); MONOCYTES % (AUTO) 6.9 % (2.0-9.0); NEUTROPHILS % (AUTO) 55.5 % (40.0-70.0); PLATELET COUNT (AUTO) 237 K/uL (150-450); RED CELL DISTRIBUTION WIDTH 19.3 % (11.5-14.5)
[2019-02-04] MEDS ORDERED: TRAZ-252 PO (13:05)
[2019-02-04 13:14] LABS: ANION GAP 10 mmol/L (8-16); CARBON DIOXIDE 25 mmol/L (22-29); CHLORIDE 104 mmol/L (98-107); CREATININE 0.96 mg/dL (0.60-1.30); GLOMERULAR FILTR. RATE CALC > 60 mL/min (>60); GLUCOSE,RANDOM 84 mg/dL (70-110); POTASSIUM 3.8 mmol/L (3.5-5.1); SODIUM SERUM 139 mmol/L (136-145); UREA NITROGEN, BLOOD 16 mg/dL (7-18)
[2019-02-04 13:20] LABS: ALANINE AMINOTRANSFERASE 19 U/L (12-78); ALBUMIN 3.6 g/dL (3.4-5.0); ALKALINE PHOSPHATASE 78 U/L (46-116); ASPARTATE AMINOTRANSFERASE 29 U/L (15-37); BILIRUBIN,TOTAL 0.4 mg/dL (0.1-1.0); PHENYTOIN (DILANTIN) < 0.5 mcg/mL (10.0-20.0); TOTAL PROTEIN, SERUM 7.4 g/dL (6.4-8.2)
[2019-02-04 16:37] VITALS: BP 138/88
== END 2019-02-04 16:40 | disposition home or self-care (01) ==
LOC: EMS 11:54
DX: F25.9 Schizoaffective disorder, unspecified (principal); F31.9 Bipolar disorder, unspecified; F10.129 Alcohol abuse with intoxication, unspecified; I48.91 Unspecified atrial fibrillation; F41.9 Anxiety disorder, unspecified; J44.9 Chronic obstructive pulmonary disease, unspecified; K21.9 Gastro-esophageal reflux disease without esophagitis; I10 Essential (primary) hypertension; F17.210 Nicotine dependence, cigarettes, uncomplicated; Z88.8 Allergy status to other drugs, medicaments and biological substances
CPT/HCPCS: 36415; 73503; 80053; 80185; 85025; 99285; G0480

== ENCOUNTER 2019-02-28 23:20 | Inpatient (IN) | payer MEDICARE, MEDICAID ==
[~2019-02-28] VITALS: Ht 170.2 cm; Wt 78.4 kg
[~2019-02-28 23:20] MED LIST changes: -CARB200T6 PO; +CYANOCOBALAMIN 1,000 MCG/ML VIAL IM ONE; +DIAZEPAM 10 MG TABLET PO PRN; +HydrOXYzine PAMOATE 50 MG CAPSULE PO PRN; -LEVE500T53 PO; +LOPERAMIDE HCL 2 MG CAPSULE PO PRN; -NALT50TA PO; +QUET100T PO; +TRAZ-252 PO
[2019-03-01 01:34] LABS: BASOPHILS % (AUTO) 3.5 % (0.0-2.0); EOSINOPHILS % (AUTO) 1.9 % (1.0-6.0); HEMATOCRIT 38.1 % (41-53); HEMOGLOBIN 12.3 g/dL (13.5-17.5); LYMPHOCYTES # (AUTO) 1.2 K/uL (1.0-4.8); LYMPHOCYTES % (AUTO) 42.4 % (22.0-44.0); MEAN CORPUSCULAR HEMOGLOBIN 28.5 pg (26.0-34.0); MEAN CORPUSCULAR HGB CONC 32.3 G/dL (31.0-37.0); MEAN CORPUSCULAR VOLUME 88 fL (80-100); MONOCYTES # (AUTO) 0.3 K/uL (0.1-1.0); MONOCYTES % (AUTO) 11.5 % (2.0-9.0); NEUTROPHILS # (AUTO) 1.2 K/uL (1.8-7.7); NEUTROPHILS % (AUTO) 40.7 % (40.0-70.0); PLATELET COUNT (AUTO) 359 K/uL (150-450); RED BLOOD CELL COUNT(AUTO) 4.32 MIL/uL (4.50-5.90); RED CELL DISTRIBUTION WIDTH 23.1 % (11.5-14.5)
[2019-03-01 01:42] LABS: ANION GAP 7 mmol/L (8-16); CALCIUM, TOTAL 8.1 mg/dL (8.8-10.5); CARBON DIOXIDE 29 mmol/L (22-29); CHLORIDE 106 mmol/L (98-107); CREATININE 0.91 mg/dL (0.60-1.30); GLOMERULAR FILTR. RATE CALC > 60 mL/min (>60); GLUCOSE,RANDOM 85 mg/dL (70-110); SODIUM SERUM 142 mmol/L (136-145); UREA NITROGEN, BLOOD 8 mg/dL (7-18)
[2019-03-01 01:48] LABS: ALANINE AMINOTRANSFERASE 20 U/L (12-78); ALBUMIN 3.2 g/dL (3.4-5.0); ALKALINE PHOSPHATASE 74 U/L (46-116); ASPARTATE AMINOTRANSFERASE 33 U/L (15-37); BILIRUBIN,TOTAL 0.3 mg/dL (0.1-1.0); TOTAL PROTEIN, SERUM 7.2 g/dL (6.4-8.2)
[2019-03-01 06:15] LABS: AMPHET/METH SCREEN,URINE NEGATIVE (NEGATIVE); BARBITURATE SCREEN, URINE NEGATIVE (NEGATIVE); BENZODIAZEPINES SCREEN,URINE NEGATIVE (NEGATIVE); CANNABINOID SCREEN,URINE NEGATIVE (NEGATIVE); COCAINE SCREEN,URINE NEGATIVE (NEGATIVE); METHADONE SCREEN, URINE NEGATIVE (NEGATIVE); OPIATE SCREEN,URINE NEGATIVE (NEGATIVE)
[2019-03-01 06:32] LABS: PHENCYCLIDINE SCREEN,URINE NEGATIVE (NEGATIVE)
[2019-03-01] MEDS ORDERED: DIAZEPAM 10 MG TABLET PO PRN (07:00)
[2019-03-01] MEDS: DIAZEPAM 10 MG TABLET PO SCH ×4 (09:17→20:39)
[2019-03-01] MEDS: THIAMINE HCL 100 MG TABLET PO SCH ×2 (09:17→16:34)
[2019-03-01] MEDS: MULTIVITAMINS WITH MINERALS, THERAPEUTIC TABLET PO SCH (09:17)
[2019-03-01] MEDS: FOLIC ACID 1 MG TABLET PO SCH (09:17)
[2019-03-01 11:30] VITALS: BP 131/70
[2019-03-01 12:40] VITALS: BP 118/79
[2019-03-01] MEDS ORDERED: LevETIRAcetam 500 MG TABLET PO ONE (13:00)
[2019-03-01] MEDS ORDERED: TUBERCULIN, PURIFIED PROTEIN DERIVATIVE 5 TU/0.1 ML SYRINGE ID ONE (13:00)
[2019-03-01] MEDS ORDERED: PHENYTOIN SODIUM 100 MG ER CAPSULE PO ONE (13:00)
[2019-03-01] MEDS ORDERED: LOPERAMIDE HCL 2 MG CAPSULE PO PRN (13:00)
[2019-03-01] MEDS ORDERED: ACETAMINOPHEN 325 MG TABLET PO PRN (13:00)
[2019-03-01] MEDS ORDERED: GABAPENTIN 300 MG CAPSULE PO ONE (13:00)
[2019-03-01] MEDS ORDERED: MAGNESIUM HYDROXIDE SUSPENSION 30 ML UDCUP PO PRN (13:00)
[2019-03-01] MEDS ORDERED: PROMETHAZINE HCL 25 MG TABLET PO PRN (13:00)
[2019-03-01 13:40] VITALS: BP 114/87
[2019-03-01] MEDS: GABAPENTIN 300 MG CAPSULE PO SCH ×3 (13:45→20:40)
[2019-03-01 14:40] VITALS: BP 127/78
[2019-03-01] MEDS: MAG HYDROX/AL HYDROX/SIMETH ES 30 ML SUSPENSION UDCUP PO PRN (15:44)
[2019-03-01] MEDS ORDERED: PALIPERIDONE PALMITATE 234 MG/1.5 ML SYRINGE IM ONE (16:00)
[2019-03-01 17:06] VITALS: BP 117/89
[2019-03-01] MEDS: PHENYTOIN SODIUM 100 MG ER CAPSULE PO SCH (18:34)
[2019-03-01] MEDS: LevETIRAcetam 500 MG TABLET PO SCH (18:34)
[2019-03-01] MEDS: QUEtiapine FUMARATE 25 MG TABLET PO SCH (20:40)
[2019-03-02 03:40] VITALS: BP 124/82
[2019-03-02 06:56] VITALS: BP 112/80
[2019-03-02] MEDS: NALTREXONE HCL 50 MG TABLET PO SCH (08:40)
[2019-03-02] MEDS: GABAPENTIN 300 MG CAPSULE PO SCH ×4 (08:40→20:34)
[2019-03-02] MEDS: THIAMINE HCL 100 MG TABLET PO SCH ×2 (08:40→16:34)
[2019-03-02] MEDS: FOLIC ACID 1 MG TABLET PO SCH (08:41)
[2019-03-02] MEDS: MULTIVITAMINS WITH MINERALS, THERAPEUTIC TABLET PO SCH (08:41)
[2019-03-02] MEDS: DIAZEPAM 10 MG TABLET PO SCH ×4 (08:41→20:33)
[2019-03-02] MEDS: LevETIRAcetam 500 MG TABLET PO SCH ×2 (08:41→16:35)
[2019-03-02] MEDS: PHENYTOIN SODIUM 100 MG ER CAPSULE PO SCH ×2 (08:41→16:34)
[2019-03-02 08:42] VITALS: BP 108/66
[2019-03-02 08:52] LABS: CHOL/HDL RATIO 1.9 (4.2-7.3); FREE T4 (FREE THYROXINE) 1.09 ng/dL (0.76-1.46); THYROID STIMULATING HORMONE 0.95 uIU/mL (0.36-3.74)
[2019-03-02] MEDS: MAG HYDROX/AL HYDROX/SIMETH ES 30 ML SUSPENSION UDCUP PO PRN ×2 (08:55→20:00)
[2019-03-02 11:33] VITALS: BP 105/78
[2019-03-02] MEDS: DENTURE ADHESIVE 68 GM CREAM DT PRN (14:22)
[2019-03-02 16:11] VITALS: BP 114/77
[2019-03-02] MEDS: QUEtiapine FUMARATE 25 MG TABLET PO SCH (20:34)
[2019-03-02] MEDS: NAPROXEN 500 MG TABLET PO SCH (21:38)
[2019-03-03 03:20] VITALS: BP 120/81
[2019-03-03] MEDS ORDERED: DIAZEPAM 5 MG TABLET PO PRN (07:00)
[2019-03-03] MEDS: PHENYTOIN SODIUM 100 MG ER CAPSULE PO SCH ×2 (08:11→16:21)
[2019-03-03] MEDS: THIAMINE HCL 100 MG TABLET PO SCH ×2 (08:11→16:21)
[2019-03-03] MEDS: GABAPENTIN 300 MG CAPSULE PO SCH ×4 (08:11→20:13)
[2019-03-03] MEDS: MAG HYDROX/AL HYDROX/SIMETH ES 30 ML SUSPENSION UDCUP PO PRN ×2 (08:11→19:41)
[2019-03-03] MEDS: LevETIRAcetam 500 MG TABLET PO SCH ×2 (08:12→16:21)
[2019-03-03] MEDS: DIAZEPAM 5 MG TABLET PO SCH ×4 (08:12→20:13)
[2019-03-03] MEDS: NAPROXEN 500 MG TABLET PO SCH ×2 (08:12→16:21)
[2019-03-03] MEDS: FOLIC ACID 1 MG TABLET PO SCH (08:12)
[2019-03-03] MEDS: NALTREXONE HCL 50 MG TABLET PO SCH (08:12)
[2019-03-03] MEDS: MULTIVITAMINS WITH MINERALS, THERAPEUTIC TABLET PO SCH (08:12)
[2019-03-03] MEDS: DULoxetine HCL 20 MG CAPSULE PO SCH (08:13)
[2019-03-03 08:17] VITALS: BP 126/86
[2019-03-03 09:27] VITALS: BP 126/86
[2019-03-03 16:00] VITALS: BP 110/79
[2019-03-03 16:12] VITALS: BP 110/79
[2019-03-03] MEDS: QUEtiapine FUMARATE 25 MG TABLET PO SCH (20:13)
[2019-03-04 00:30] VITALS: BP 116/87
[2019-03-04] MEDS: MAG HYDROX/AL HYDROX/SIMETH ES 30 ML SUSPENSION UDCUP PO PRN ×2 (01:08→19:59)
[2019-03-04] MEDS: GuaiFENesin/D-METHORPHAN [SUGAR-FREE] 200-20MG/10 ML SYRUP UDCUP PO PRN ×2 (03:16→08:46)
[2019-03-04] MEDS ORDERED: DIAZEPAM 5 MG TABLET PO PRN (07:00)
[2019-03-04] MEDS: NAPROXEN 500 MG TABLET PO SCH ×2 (07:21→16:34)
[2019-03-04 08:00] VITALS: BP 110/75
[2019-03-04] MEDS: PHENYTOIN SODIUM 100 MG ER CAPSULE PO SCH ×2 (08:35→16:34)
[2019-03-04] MEDS: NALTREXONE HCL 50 MG TABLET PO SCH (08:35)
[2019-03-04] MEDS: GABAPENTIN 300 MG CAPSULE PO SCH ×4 (08:35→20:37)
[2019-03-04] MEDS: LevETIRAcetam 500 MG TABLET PO SCH ×2 (08:35→16:34)
[2019-03-04] MEDS: MULTIVITAMINS WITH MINERALS, THERAPEUTIC TABLET PO SCH (08:36)
[2019-03-04] MEDS: THIAMINE HCL 100 MG TABLET PO SCH ×2 (08:36→16:34)
[2019-03-04] MEDS: DULoxetine HCL 20 MG CAPSULE PO SCH (08:36)
[2019-03-04] MEDS: FOLIC ACID 1 MG TABLET PO SCH (08:36)
[2019-03-04 08:59] VITALS: BP 111/75
[2019-03-04] MEDS: LACTULOSE 20 GM/30 ML SOLUTION UDCUP PO SCH ×2 (09:59→16:33)
[2019-03-04 16:10] VITALS: BP 106/81
[2019-03-04 17:05] VITALS: BP 106/81
[2019-03-04] MEDS: QUEtiapine FUMARATE 25 MG TABLET PO SCH (20:37)
[2019-03-05 05:26] VITALS: BP 117/60
[2019-03-05 05:27] VITALS: BP 117/60
[2019-03-05] MEDS: NAPROXEN 500 MG TABLET PO SCH ×2 (06:43→16:41)
[2019-03-05 08:30] VITALS: BP 109/74
[2019-03-05 08:35] VITALS: BP 109/74
[2019-03-05] MEDS: THIAMINE HCL 100 MG TABLET PO SCH ×2 (08:37→16:41)
[2019-03-05] MEDS: MULTIVITAMINS WITH MINERALS, THERAPEUTIC TABLET PO SCH (08:37)
[2019-03-05] MEDS: NALTREXONE HCL 50 MG TABLET PO SCH (08:37)
[2019-03-05] MEDS: GABAPENTIN 300 MG CAPSULE PO SCH ×4 (08:37→20:37)
[2019-03-05] MEDS: LACTULOSE 20 GM/30 ML SOLUTION UDCUP PO SCH ×2 (08:38→16:41)
[2019-03-05] MEDS: DULoxetine HCL 20 MG CAPSULE PO SCH (08:38)
[2019-03-05] MEDS: FOLIC ACID 1 MG TABLET PO SCH (08:38)
[2019-03-05] MEDS: LevETIRAcetam 500 MG TABLET PO SCH ×2 (08:38→16:42)
[2019-03-05] MEDS: PHENYTOIN SODIUM 100 MG ER CAPSULE PO SCH ×2 (08:38→16:42)
[2019-03-05] MEDS ORDERED: PALIPERIDONE PALMITATE 156 MG/ML SYRINGE IM ONE (09:00)
[2019-03-05 16:20] VITALS: BP 112/76
[2019-03-05 17:59] VITALS: BP 112/76
[2019-03-05] MEDS: MAG HYDROX/AL HYDROX/SIMETH ES 30 ML SUSPENSION UDCUP PO PRN (19:57)
[2019-03-05] MEDS: QUEtiapine FUMARATE 25 MG TABLET PO SCH (20:37)
[2019-03-06 04:18] VITALS: BP 116/72
[2019-03-06] MEDS: NAPROXEN 500 MG TABLET PO SCH ×2 (06:46→16:32)
[2019-03-06 08:08] VITALS: BP 102/77
[2019-03-06] MEDS: LevETIRAcetam 500 MG TABLET PO SCH ×2 (08:16→16:32)
[2019-03-06] MEDS: NALTREXONE HCL 50 MG TABLET PO SCH (08:16)
[2019-03-06] MEDS: PHENYTOIN SODIUM 100 MG ER CAPSULE PO SCH ×2 (08:16→16:32)
[2019-03-06] MEDS: LACTULOSE 20 GM/30 ML SOLUTION UDCUP PO SCH ×2 (08:16→16:32)
[2019-03-06] MEDS: MULTIVITAMINS WITH MINERALS, THERAPEUTIC TABLET PO SCH (08:17)
[2019-03-06] MEDS: GABAPENTIN 300 MG CAPSULE PO SCH ×4 (08:17→20:37)
[2019-03-06] MEDS: THIAMINE HCL 100 MG TABLET PO SCH ×2 (08:17→16:32)
[2019-03-06] MEDS: FOLIC ACID 1 MG TABLET PO SCH (08:17)
[2019-03-06] MEDS: DULoxetine HCL 20 MG CAPSULE PO SCH (09:13)
[2019-03-06] MEDS: DENTURE ADHESIVE 68 GM CREAM DT PRN (12:26)
[2019-03-06] MEDS: NICOTINE 14 MG/24 HOUR PATCH TD SCH (14:24)
[2019-03-06 16:25] VITALS: BP 103/75
[2019-03-06] MEDS: QUEtiapine FUMARATE 200 MG TABLET PO SCH (20:37)
[2019-03-07 00:35] VITALS: BP 117/80
[2019-03-07] MEDS: NAPROXEN 500 MG TABLET PO SCH ×2 (06:59→16:16)
[2019-03-07 08:21] VITALS: BP 115/71
[2019-03-07] MEDS: GABAPENTIN 300 MG CAPSULE PO SCH ×4 (08:43→20:02)
[2019-03-07] MEDS: LACTULOSE 20 GM/30 ML SOLUTION UDCUP PO SCH ×2 (08:43→16:15)
[2019-03-07] MEDS: MULTIVITAMINS WITH MINERALS, THERAPEUTIC TABLET PO SCH (08:43)
[2019-03-07] MEDS: PHENYTOIN SODIUM 100 MG ER CAPSULE PO SCH ×2 (08:44→16:16)
[2019-03-07] MEDS: LevETIRAcetam 500 MG TABLET PO SCH ×2 (08:44→16:15)
[2019-03-07] MEDS: DULoxetine HCL 20 MG CAPSULE PO SCH (08:44)
[2019-03-07] MEDS: NALTREXONE HCL 50 MG TABLET PO SCH (08:44)
[2019-03-07] MEDS: THIAMINE HCL 100 MG TABLET PO SCH ×2 (08:44→16:16)
[2019-03-07] MEDS: FOLIC ACID 1 MG TABLET PO SCH (08:44)
[2019-03-07] MEDS: NICOTINE 14 MG/24 HOUR PATCH TD SCH (08:45)
[2019-03-07] MEDS ORDERED: PANTOPRAZOLE SODIUM 40 MG DR TABLET PO SCH (09:00)
[2019-03-07 16:08] VITALS: BP 109/70
[2019-03-07] MEDS: PANTOPRAZOLE SODIUM 40 MG DR TABLET PO SCH (16:16)
[2019-03-07] MEDS: QUEtiapine FUMARATE 200 MG TABLET PO SCH (20:02)
[2019-03-07] MEDS: MAG HYDROX/AL HYDROX/SIMETH ES 30 ML SUSPENSION UDCUP PO PRN (20:36)
[2019-03-08 01:17] VITALS: BP 110/66
[2019-03-08] MEDS: NAPROXEN 500 MG TABLET PO SCH ×2 (06:37→17:05)
[2019-03-08] MEDS: LACTULOSE 20 GM/30 ML SOLUTION UDCUP PO SCH ×2 (08:20→17:05)
[2019-03-08] MEDS: PANTOPRAZOLE SODIUM 40 MG DR TABLET PO SCH ×2 (08:21→17:06)
[2019-03-08] MEDS: LevETIRAcetam 500 MG TABLET PO SCH ×2 (08:21→17:06)
[2019-03-08] MEDS: PHENYTOIN SODIUM 100 MG ER CAPSULE PO SCH ×2 (08:21→17:05)
[2019-03-08] MEDS: FOLIC ACID 1 MG TABLET PO SCH (08:21)
[2019-03-08] MEDS: DISULFIRAM 250 MG TABLET PO SCH (08:22)
[2019-03-08] MEDS: DULoxetine HCL 20 MG CAPSULE PO SCH (08:22)
[2019-03-08] MEDS: MULTIVITAMINS WITH MINERALS, THERAPEUTIC TABLET PO SCH (08:22)
[2019-03-08] MEDS: NICOTINE 14 MG/24 HOUR PATCH TD SCH (08:22)
[2019-03-08] MEDS: THIAMINE HCL 100 MG TABLET PO SCH ×2 (08:22→17:05)
[2019-03-08] MEDS: NALTREXONE HCL 50 MG TABLET PO SCH (08:22)
[2019-03-08] MEDS: GABAPENTIN 300 MG CAPSULE PO SCH ×4 (08:22→20:12)
[2019-03-08 08:32] VITALS: BP 110/80
[2019-03-08 16:08] VITALS: BP 110/74
[2019-03-08] MEDS: QUEtiapine FUMARATE 200 MG TABLET PO SCH (20:12)
[2019-03-09 00:43] VITALS: BP 106/72
[2019-03-09] MEDS: NAPROXEN 500 MG TABLET PO SCH ×2 (07:07→16:38)
[2019-03-09 08:08] LABS: BASOPHILS % (AUTO) 0.8 % (0.0-2.0); EOSINOPHILS % (AUTO) 4.1 % (1.0-6.0); HEMATOCRIT 34.5 % (41-53); HEMOGLOBIN 11.2 g/dL (13.5-17.5); LYMPHOCYTES # (AUTO) 1.1 K/uL (1.0-4.8); MEAN CORPUSCULAR HEMOGLOBIN 28.9 pg (26.0-34.0); MEAN CORPUSCULAR HGB CONC 32.4 G/dL (31.0-37.0); MEAN CORPUSCULAR VOLUME 89 fL (80-100); MONOCYTES # (AUTO) 0.9 K/uL (0.1-1.0); MONOCYTES % (AUTO) 13.5 % (2.0-9.0); NEUTROPHILS # (AUTO) 4.5 K/uL (1.8-7.7); NEUTROPHILS % (AUTO) 65.6 % (40.0-70.0); PLATELET COUNT (AUTO) 323 K/uL (150-450); RED BLOOD CELL COUNT(AUTO) 3.86 MIL/uL (4.50-5.90); RED CELL DISTRIBUTION WIDTH 21.7 % (11.5-14.5)
[2019-03-09] MEDS: GABAPENTIN 300 MG CAPSULE PO SCH ×3 (08:08→16:37)
[2019-03-09] MEDS: DISULFIRAM 250 MG TABLET PO SCH (08:08)
[2019-03-09] MEDS: PHENYTOIN SODIUM 100 MG ER CAPSULE PO SCH ×2 (08:08→16:37)
[2019-03-09] MEDS: NALTREXONE HCL 50 MG TABLET PO SCH (08:08)
[2019-03-09] MEDS: LevETIRAcetam 500 MG TABLET PO SCH ×2 (08:08→16:37)
[2019-03-09] MEDS: FOLIC ACID 1 MG TABLET PO SCH (08:08)
[2019-03-09] MEDS: THIAMINE HCL 100 MG TABLET PO SCH ×2 (08:08→16:38)
[2019-03-09] MEDS: PANTOPRAZOLE SODIUM 40 MG DR TABLET PO SCH ×2 (08:08→16:38)
[2019-03-09] MEDS: LACTULOSE 20 GM/30 ML SOLUTION UDCUP PO SCH ×2 (08:09→16:37)
[2019-03-09] MEDS: DULoxetine HCL 20 MG CAPSULE PO SCH (08:09)
[2019-03-09 08:11] VITALS: BP 119/76
[2019-03-09] MEDS: NICOTINE 14 MG/24 HOUR PATCH TD SCH (08:12)
[2019-03-09 08:23] LABS: ALANINE AMINOTRANSFERASE 18 U/L (12-78); ALBUMIN 3.1 g/dL (3.4-5.0); ALKALINE PHOSPHATASE 59 U/L (46-116); ANION GAP 9 mmol/L (8-16); ASPARTATE AMINOTRANSFERASE 19 U/L (15-37); BILIRUBIN,TOTAL 0.2 mg/dL (0.1-1.0); CALCIUM, TOTAL 8.8 mg/dL (8.8-10.5); CARBON DIOXIDE 28 mmol/L (22-29); CHLORIDE 103 mmol/L (98-107); CREATININE 0.86 mg/dL (0.60-1.30); GLOMERULAR FILTR. RATE CALC > 60 mL/min (>60); GLUCOSE,RANDOM 80 mg/dL (70-110); PHENYTOIN (DILANTIN) 7.7 mcg/mL (10.0-20.0); POTASSIUM 4.4 mmol/L (3.5-5.1); SODIUM SERUM 140 mmol/L (136-145); TOTAL PROTEIN, SERUM 6.2 g/dL (6.4-8.2); UREA NITROGEN, BLOOD 16 mg/dL (7-18)
[2019-03-09] MEDS ORDERED: MULTIVITAMINS WITH IRON TABLET PO SCH (09:00)
[2019-03-09] MEDS ORDERED: GABA-531 PO ×2 (14:40→14:53)
[2019-03-09] MEDS ORDERED: DISU250 PO ×2 (14:40→14:53)
[2019-03-09] MEDS ORDERED: LEVE500T53 PO ×2 (14:40→14:53)
[2019-03-09] MEDS ORDERED: DULO20CA30 PO ×2 (14:40→14:53)
[2019-03-09] MEDS ORDERED: QUET200T29 PO (14:40)
[2019-03-09] MEDS ORDERED: PHENY100 PO (14:40)
[2019-03-09] MEDS ORDERED: NALT50TA PO (14:40)
[2019-03-09] MEDS ORDERED: QUET200T PO (14:53)
[2019-03-09] MEDS ORDERED: NALT50TA6 PO (14:53)
[2019-03-09] MEDS ORDERED: PHEN100C23 PO (14:53)
== END 2019-03-09 16:50 | disposition home or self-care (01) | DRG 885 ==
LOC: BV PSY EVL 23:27 → B2X 03-01 08:37
PROVIDERS: ADMIT Psychiatry & Neurology Psychiatry; ATTEND Psychiatry & Neurology Psychiatry
DX: F25.0 Schizoaffective disorder, bipolar type (principal); F10.229 Alcohol dependence with intoxication, unspecified; E46 Unspecified protein-calorie malnutrition; R45.851 Suicidal ideations; D64.9 Anemia, unspecified; I10 Essential (primary) hypertension; D72.819 Decreased white blood cell count, unspecified; I48.91 Unspecified atrial fibrillation; F12.90 Cannabis use, unspecified, uncomplicated; G89.29 Other chronic pain; N40.0 Benign prostatic hyperplasia without lower urinary tract symptoms; K29.70 Gastritis, unspecified, without bleeding; F41.9 Anxiety disorder, unspecified; J44.9 Chronic obstructive pulmonary disease, unspecified; K21.9 Gastro-esophageal reflux disease without esophagitis; Z96.649 Presence of unspecified artificial hip joint; M19.039 Primary osteoarthritis, unspecified wrist; R56.9 Unspecified convulsions; F17.210 Nicotine dependence, cigarettes, uncomplicated; Z91.19 Patient's noncompliance with other medical treatment and regimen; Z88.8 Allergy status to other drugs, medicaments and biological substances; Z79.899 Other long term (current) drug therapy; Z68.27 Body mass index [BMI] 27.0-27.9, adult
CPT/HCPCS: 82306; 83735; 84439; 84443; G0480; G0482; J3420

== ENCOUNTER → 2019-04-06 | Outpatient (CLI) | payer MEDICARE, MEDICAID ==
[~2019-04-06] MED LIST changes: -CYANOCOBALAMIN 1,000 MCG/ML VIAL IM ONE; -DIAZEPAM 10 MG TABLET PO PRN; +DISU250 PO; +DULO20CA30 PO; -HydrOXYzine PAMOATE 50 MG CAPSULE PO PRN; +IOVERSOL 350 MG/ML 100 ML VIAL ONE; +LEVE500T53 PO; -LOPERAMIDE HCL 2 MG CAPSULE PO PRN; +NALT50TA PO; +NALT50TA6 PO; +PHEN100C23 PO; -QUET100T PO; -QUET100T33 PO; +QUET200T PO; +QUET200T29 PO; -TRAZ-252 PO
== END | disposition home or self-care (01) ==
LOC: RADMN 10:48
PROVIDERS: ATTEND Legal Medicine
DX: J98.4 Other disorders of lung (principal); K44.9 Diaphragmatic hernia without obstruction or gangrene; I70.0 Atherosclerosis of aorta
CPT/HCPCS: 71260; Q9967

== ENCOUNTER 2019-09-07 02:26 | Inpatient (IN) | payer MEDICARE, OTHER ==
[~2019-09-07] VITALS: Ht 167.6 cm; Wt 83.7 kg
[~2019-09-07 02:26] MED LIST changes: -DULO20CA30 PO; +FLUO-191 PO; +FOLI1 PO; -IOVERSOL 350 MG/ML 100 ML VIAL ONE; +MULT-700 PO; -NALT50TA PO; +PANT40TA25 PO; -PHENY100 PO; -QUET200T29 PO; +THIA100T67 PO
[2019-09-07 03:14] LABS: BASOPHILS % (AUTO) 0.2 % (0.0-2.0); EOSINOPHILS % (AUTO) 1.6 % (1.0-6.0); HEMATOCRIT 31.9 % (41-53); HEMOGLOBIN 10.5 g/dL (13.5-17.5); LYMPHOCYTES # (AUTO) 0.7 K/uL (1.0-4.8); LYMPHOCYTES % (AUTO) 12.9 % (22.0-44.0); MEAN CORPUSCULAR HEMOGLOBIN 27.8 pg (26.0-34.0); MEAN CORPUSCULAR HGB CONC 32.9 G/dL (31.0-37.0); MEAN CORPUSCULAR VOLUME 84 fL (80-100); MONOCYTES # (AUTO) 0.6 K/uL (0.1-1.0); MONOCYTES % (AUTO) 11.9 % (2.0-9.0); NEUTROPHILS # (AUTO) 3.7 K/uL (1.8-7.7); NEUTROPHILS % (AUTO) 73.4 % (40.0-70.0); PLATELET COUNT (AUTO) 207 K/uL (150-450); RED BLOOD CELL COUNT(AUTO) 3.78 MIL/uL (4.50-5.90); RED CELL DISTRIBUTION WIDTH 20.9 % (11.5-14.5)
[2019-09-07 03:29] LABS: ALANINE AMINOTRANSFERASE 59 U/L (12-78); ALBUMIN 3.6 g/dL (3.4-5.0); ALKALINE PHOSPHATASE 72 U/L (46-116); ANION GAP 3 mmol/L (8-16); ASPARTATE AMINOTRANSFERASE 57 U/L (15-37); BILIRUBIN,TOTAL 0.3 mg/dL (0.1-1.0); CALCIUM, TOTAL 8.9 mg/dL (8.8-10.5); CARBON DIOXIDE 39 mmol/L (22-29); CHLORIDE 97 mmol/L (98-107); CREATININE 0.72 mg/dL (0.60-1.30); GLOMERULAR FILTR. RATE CALC > 60 mL/min (>60); GLUCOSE,RANDOM 119 mg/dL (70-110); LIPASE 159 U/L (73-393); SODIUM SERUM 139 mmol/L (136-145); TOTAL PROTEIN, SERUM 7.4 g/dL (6.4-8.2); UREA NITROGEN, BLOOD 12 mg/dL (7-18)
[2019-09-07 03:32] LABS: POTASSIUM 2.4 mmol/L (3.5-5.1)
[2019-09-07] MEDS ORDERED: OCTREOTIDE ACETATE 500 MCG in DEXTROSE 5%-WATER 97.5 ML IV SCH (03:45)
[2019-09-07] MEDS ORDERED: ONDANSETRON HCL 4 MG/2 ML VIAL IVP ONE (03:45)
[2019-09-07] MEDS ORDERED: PANTOPRAZOLE SODIUM 40 MG/VIAL IVP ONE (03:45)
[2019-09-07] MEDS ORDERED: FAMOTIDINE 10 MG/ML 2 ML VIAL IVP ONE (03:45)
[2019-09-07] MEDS ORDERED: SODIUM CHLORIDE 0.9% 1,000 ML IV ONE (03:45)
[2019-09-07] MEDS ORDERED: POTASSIUM CHLORIDE 20 MEQ ER TABLET PO ONE (03:45)
[2019-09-07] MEDS ORDERED: PANTOPRAZOLE SODIUM 80 MG in SODIUM CHLORIDE 0.9% 100 ML IV SCH (03:45)
[2019-09-07 03:51] LABS: PROTHROMBIN TIME 9.9 SEC (9.4-11.6)
[2019-09-07] MEDS ORDERED: ONDANSETRON HCL 4 MG/2 ML VIAL IVP PRN ×2 (04:45→11:45)
[2019-09-07] MEDS ORDERED: 0.9% SODIUM CHLORIDE 10 ML SYRINGE IVP PRN (04:45)
[2019-09-07] MEDS ORDERED: ACETAMINOPHEN 325 MG TABLET PO PRN ×2 (04:45→11:45)
[2019-09-07] MEDS: POTASSIUM CHL 10 MEQ/WATER 50 ML IV SCH ×4 (05:00→07:14)
[2019-09-07] MEDS ORDERED: LITH300C3 PO (08:33)
[2019-09-07] MEDS ORDERED: HALO10 PO (08:33)
[2019-09-07] MEDS ORDERED: ZOLPIDEM TARTRATE 5 MG TABLET PO PRN (11:45)
[2019-09-07] MEDS ORDERED: MORPHINE SULFATE 2 MG/ML SYRINGE IVP PRN (11:45)
[2019-09-07] MEDS ORDERED: HYDROCODONE/ACETAMINOPHEN 5-325 MG TABLET PO PRN (11:45)
[2019-09-07] MEDS ORDERED: MAGNESIUM HYDROXIDE SUSPENSION 30 ML UDCUP PO PRN (11:45)
[2019-09-07] MEDS ORDERED: BISACODYL 10 MG RECTAL RECTAL SUPPOSITORY PR PRN (11:45)
[2019-09-07] MEDS: LevETIRAcetam 1,000 MG in DEXTROSE 5%-WATER 100 ML IV SCH ×2 (12:24→23:35)
[2019-09-07] MEDS: GABAPENTIN 300 MG CAPSULE PO SCH ×3 (13:00→20:10)
[2019-09-07 14:07] VITALS: BP 129/82
[2019-09-07 15:10] LABS: HEMATOCRIT 31.1 % (41-53)
[2019-09-07] MEDS: OCTREOTIDE ACETATE 500 MCG in DEXTROSE 5%-WATER 97.5 ML IV SCH (15:27)
[2019-09-07 15:40] VITALS: BP 104/72
[2019-09-07] MEDS: PANTOPRAZOLE SODIUM 80 MG in SODIUM CHLORIDE 0.9% 100 ML IV SCH (15:41)
[2019-09-07] MEDS: QUEtiapine FUMARATE 300 MG TABLET PO SCH (20:10)
[2019-09-07] MEDS: THIAMINE HCL 100 MG TABLET PO SCH (20:10)
[2019-09-07] MEDS: DOCUSATE SODIUM 100 MG CAPSULE PO SCH (20:11)
[2019-09-07] MEDS: PHENYTOIN SODIUM 100 MG ER CAPSULE PO SCH (20:11)
[2019-09-07 20:18] VITALS: BP 127/81
[2019-09-07 20:38] LABS: HEMATOCRIT 29.9 % (41-53); HEMOGLOBIN 9.6 g/dL (13.5-17.5)
[2019-09-07] MEDS ORDERED: SODIUM CHLORIDE 0.9% 250 ML IV ONE (23:52)
[2019-09-08 00:07] VITALS: BP 97/52
[2019-09-08] MEDS: OCTREOTIDE ACETATE 500 MCG in DEXTROSE 5%-WATER 97.5 ML IV SCH ×2 (00:08→11:00)
[2019-09-08] MEDS: PANTOPRAZOLE SODIUM 80 MG in SODIUM CHLORIDE 0.9% 100 ML IV SCH ×2 (00:10→11:00)
[2019-09-08 02:39] LABS: HEMATOCRIT 27.2 % (41-53); HEMOGLOBIN 8.8 g/dL (13.5-17.5)
[2019-09-08 05:02] VITALS: BP 93/64
[2019-09-08 07:54] VITALS: BP 115/77
[2019-09-08] MEDS: PHENYTOIN SODIUM 100 MG ER CAPSULE PO SCH ×2 (08:42→20:07)
[2019-09-08] MEDS: THIAMINE HCL 100 MG TABLET PO SCH ×2 (08:42→20:08)
[2019-09-08] MEDS: GABAPENTIN 300 MG CAPSULE PO SCH ×4 (08:42→20:07)
[2019-09-08] MEDS: DOCUSATE SODIUM 100 MG CAPSULE PO SCH ×2 (08:42→20:08)
[2019-09-08] MEDS ORDERED: PANTOPRAZOLE SODIUM 40 MG DR TABLET PO SCH (09:00)
[2019-09-08 09:23] LABS: HEMATOCRIT 28.8 % (41-53); HEMOGLOBIN 9.4 g/dL (13.5-17.5)
[2019-09-08] MEDS: LevETIRAcetam 1,000 MG in DEXTROSE 5%-WATER 100 ML IV SCH (13:17)
[2019-09-08] MEDS: PANTOPRAZOLE SODIUM 40 MG/VIAL IVP SCH ×2 (13:17→20:06)
[2019-09-08 16:02] VITALS: BP 105/68
[2019-09-08 20:07] VITALS: BP 106/66
[2019-09-08] MEDS: QUEtiapine FUMARATE 300 MG TABLET PO SCH (20:09)
[2019-09-09] MEDS: LevETIRAcetam 1,000 MG in DEXTROSE 5%-WATER 100 ML IV SCH ×2
[2019-09-09 00:15] VITALS: BP 117/75
[2019-09-09 04:06] VITALS: BP 100/67
[2019-09-09] MEDS ORDERED: PROPOFOL 1% 20 ML VIAL IVP ONE (05:58)
[2019-09-09] MEDS ORDERED: LIDOCAINE/PF 2% 5 ML SYRINGE IVP ONE (05:58)
[2019-09-09 07:18] VITALS: BP 100/55
[2019-09-09] MEDS: GABAPENTIN 300 MG CAPSULE PO SCH (08:33)
[2019-09-09] MEDS: THIAMINE HCL 100 MG TABLET PO SCH (08:33)
[2019-09-09] MEDS: DOCUSATE SODIUM 100 MG CAPSULE PO SCH (08:33)
[2019-09-09] MEDS: PHENYTOIN SODIUM 100 MG ER CAPSULE PO SCH (08:34)
[2019-09-09] MEDS: PANTOPRAZOLE SODIUM 40 MG/VIAL IVP SCH (08:40)
[2019-09-09 09:11] LABS: HEMATOCRIT 29.5 % (41-53); HEMOGLOBIN 9.5 g/dL (13.5-17.5)
[2019-09-09] MEDS ORDERED: PANT40TA25 PO (10:04)
[2019-09-09 11:17] VITALS: BP 105/64
== END 2019-09-09 12:38 | disposition home or self-care (01) | DRG 379 ==
LOC: EMS 02:26 → 5S 12:21 → UNDOADMIN 13:00 → 5S 13:00
PROVIDERS: ADMIT Internal Medicine; ATTEND Internal Medicine
PROC: 0DB68ZX Excision of Stomach, Via Natural or Artificial Opening Endoscopic, Diagnostic (ICD-10-PCS; principal; 2019-09-08 11:30)
DX: K25.4 Chronic or unspecified gastric ulcer with hemorrhage (principal); K74.60 Unspecified cirrhosis of liver; B96.81 Helicobacter pylori [H. pylori] as the cause of diseases classified elsewhere; D64.9 Anemia, unspecified; E87.6 Hypokalemia; F17.200 Nicotine dependence, unspecified, uncomplicated; F25.9 Schizoaffective disorder, unspecified; F31.9 Bipolar disorder, unspecified; K59.00 Constipation, unspecified; G40.909 Epilepsy, unspecified, not intractable, without status epilepticus; K21.9 Gastro-esophageal reflux disease without esophagitis; I10 Essential (primary) hypertension; I48.91 Unspecified atrial fibrillation; Z96.649 Presence of unspecified artificial hip joint; J44.9 Chronic obstructive pulmonary disease, unspecified; K44.9 Diaphragmatic hernia without obstruction or gangrene; Z80.42 Family history of malignant neoplasm of prostate; Z81.8 Family history of other mental and behavioral disorders; Z79.899 Other long term (current) drug therapy
CPT/HCPCS: 82271; 84132; 85014; 85018; 86850; 86900; 86901; 88305; 88312; 88313; 93005; 96365; 96375; C9113; G0378; J0712; J2270; J2354; J2405; J2704; J3480; J3490; J7030; J7050; J7060

== ENCOUNTER 2019-09-18 12:12 | Emergency (ER) | payer MEDICARE, OTHER ==
[~2019-09-18] VITALS: Ht 170.2 cm; Wt 67.0 kg
[~2019-09-18 12:12] MED LIST changes: -DISU250 PO; -FOLI1 PO; -MULT-700 PO; -NALT50TA6 PO
[2019-09-18 13:06] LABS: HEMATOCRIT 31.9 % (41-53); HEMOGLOBIN 10.3 g/dL (13.5-17.5); LYMPHOCYTES # (AUTO) 2.2 K/uL (1.0-4.8); LYMPHOCYTES % (AUTO) 39.7 % (22.0-44.0); MEAN CORPUSCULAR HEMOGLOBIN 26.6 pg (26.0-34.0); MEAN CORPUSCULAR HGB CONC 32.2 G/dL (31.0-37.0); MEAN CORPUSCULAR VOLUME 83 fL (80-100); MONOCYTES # (AUTO) 0.2 K/uL (0.1-1.0); MONOCYTES % (AUTO) 3.9 % (2.0-9.0); NEUTROPHILS # (AUTO) 2.9 K/uL (1.8-7.7); NEUTROPHILS % (AUTO) 52.4 % (40.0-70.0); PLATELET COUNT (AUTO) 728 K/uL (150-450); RED BLOOD CELL COUNT(AUTO) 3.86 MIL/uL (4.50-5.90)
[2019-09-18 13:20] LABS: ANION GAP 13 mmol/L (8-16); CALCIUM, TOTAL 8.3 mg/dL (8.8-10.5); CARBON DIOXIDE 22 mmol/L (22-29); CHLORIDE 102 mmol/L (98-107); CREATININE 0.71 mg/dL (0.60-1.30); GLOMERULAR FILTR. RATE CALC > 60 mL/min (>60); GLUCOSE,RANDOM 83 mg/dL (70-110); POTASSIUM 4.2 mmol/L (3.5-5.1); SODIUM SERUM 137 mmol/L (136-145); UREA NITROGEN, BLOOD 6 mg/dL (7-18)
[2019-09-18 13:25] LABS: ALANINE AMINOTRANSFERASE 40 U/L (12-78); ALBUMIN 3.3 g/dL (3.4-5.0); ALKALINE PHOSPHATASE 64 U/L (46-116); ASPARTATE AMINOTRANSFERASE 40 U/L (15-37); BILIRUBIN,TOTAL 0.1 mg/dL (0.1-1.0); LIPASE 174 U/L (73-393); PHENYTOIN (DILANTIN) < 0.5 mcg/mL (10.0-20.0); TOTAL PROTEIN, SERUM 7.4 g/dL (6.4-8.2)
[2019-09-18] MEDS ORDERED: PB/HYOSCY/ATR/SCOP/LIDO/MAALOX 55 ML BOTTLE PO ONE (13:30)
[2019-09-18] MEDS ORDERED: FAMOTIDINE 10 MG/ML 2 ML VIAL IVP ONE (13:30)
[2019-09-18] MEDS ORDERED: IOVERSOL 320 MG/ML 100 ML VIAL ONE (13:34)
[2019-09-18] MEDS ORDERED: SODIUM CHLORIDE 0.9% 100 ML ONE (13:34)
[2019-09-18 18:08] VITALS: BP 114/73
== END 2019-09-18 18:15 | disposition home or self-care (01) ==
LOC: EMS 12:15
DX: T80.89XA Other complications following infusion, transfusion and therapeutic injection, initial encounter (principal); K29.20 Alcoholic gastritis without bleeding; F10.229 Alcohol dependence with intoxication, unspecified; I10 Essential (primary) hypertension; I48.91 Unspecified atrial fibrillation; K21.9 Gastro-esophageal reflux disease without esophagitis; F31.9 Bipolar disorder, unspecified; J44.9 Chronic obstructive pulmonary disease, unspecified; F20.9 Schizophrenia, unspecified; F17.210 Nicotine dependence, cigarettes, uncomplicated; Z88.8 Allergy status to other drugs, medicaments and biological substances; Z79.82 Long term (current) use of aspirin; Y90.8 Blood alcohol level of 240 mg/100 ml or more
CPT/HCPCS: 74177; 80053; 80185; 83690; 84484; 85025; 96374; 99285; G0480; J3490; J7050; Q9967

== ENCOUNTER 2019-09-25 14:30 | Emergency (ER) | payer MEDICARE, OTHER ==
[~2019-09-25] VITALS: Ht 165.1 cm; Wt 73.0 kg
[2019-09-25] MEDS ORDERED: FAMOTIDINE 10 MG/ML 2 ML VIAL IVP ONE (15:30)
[2019-09-25] MEDS ORDERED: ACETAMINOPHEN 500 MG TABLET PO ONE (15:30)
[2019-09-25] MEDS ORDERED: PB/HYOSCY/ATR/SCOP/LIDO/MAALOX 55 ML BOTTLE PO ONE (15:30)
[2019-09-25] MEDS ORDERED: ONDANSETRON HCL 4 MG/2 ML VIAL IVP ONE (16:15)
[2019-09-25] MEDS ORDERED: SODIUM CHLORIDE 0.9% 1,000 ML IV ONE (16:30)
[2019-09-25 16:41] LABS: BASOPHILS % (AUTO) 1.5 % (0.0-2.0); EOSINOPHILS % (AUTO) 3.8 % (1.0-6.0); HEMATOCRIT 33.7 % (41-53); LYMPHOCYTES # (AUTO) 1.5 K/uL (1.0-4.8); LYMPHOCYTES % (AUTO) 41.8 % (22.0-44.0); MEAN CORPUSCULAR HEMOGLOBIN 26.8 pg (26.0-34.0); MEAN CORPUSCULAR HGB CONC 32.5 G/dL (31.0-37.0); MEAN CORPUSCULAR VOLUME 82 fL (80-100); MONOCYTES # (AUTO) 0.2 K/uL (0.1-1.0); NEUTROPHILS # (AUTO) 1.7 K/uL (1.8-7.7); NEUTROPHILS % (AUTO) 46.9 % (40.0-70.0); PLATELET COUNT (AUTO) 343 K/uL (150-450)
[2019-09-25 16:55] LABS: PROTHROMBIN TIME 9.7 SEC (9.4-11.6)
[2019-09-25 17:03] LABS: ANION GAP 11 mmol/L (8-16); CALCIUM, TOTAL 8.5 mg/dL (8.8-10.5); CARBON DIOXIDE 25 mmol/L (22-29); CHLORIDE 101 mmol/L (98-107); CREATININE 0.64 mg/dL (0.60-1.30); GLOMERULAR FILTR. RATE CALC > 60 mL/min (>60); GLUCOSE,RANDOM 80 mg/dL (70-110); POTASSIUM 4.2 mmol/L (3.5-5.1); SODIUM SERUM 137 mmol/L (136-145); UREA NITROGEN, BLOOD 6 mg/dL (7-18)
[2019-09-25 17:10] LABS: ALANINE AMINOTRANSFERASE 42 U/L (12-78); ALBUMIN 3.5 g/dL (3.4-5.0); ALKALINE PHOSPHATASE 66 U/L (46-116); ASPARTATE AMINOTRANSFERASE 57 U/L (15-37); BILIRUBIN,TOTAL 0.2 mg/dL (0.1-1.0); LIPASE 180 U/L (73-393); TOTAL PROTEIN, SERUM 7.7 g/dL (6.4-8.2)
[2019-09-25 18:23] VITALS: BP 104/68
== END 2019-09-25 18:33 | disposition home or self-care (01) ==
LOC: EMS 14:34
DX: K29.20 Alcoholic gastritis without bleeding (principal); F10.129 Alcohol abuse with intoxication, unspecified; R11.10 Vomiting, unspecified; K21.9 Gastro-esophageal reflux disease without esophagitis; F17.210 Nicotine dependence, cigarettes, uncomplicated; Z88.8 Allergy status to other drugs, medicaments and biological substances; Y90.8 Blood alcohol level of 240 mg/100 ml or more
CPT/HCPCS: 36415; 80053; 83690; 85025; 85610; 85730; 96361; 96374; 96375; 99284; G0480; J2405; J3490; J7030

== ENCOUNTER 2019-10-02 11:04 | Emergency (ER) | payer MEDICARE, OTHER ==
[~2019-10-02] VITALS: Ht 165.1 cm; Wt 73.0 kg
[2019-10-02] MEDS ORDERED: QUET300T2 PO (12:12)
[2019-10-02 12:14] LABS: BASOPHILS % (AUTO) 0.4 % (0.0-2.0); EOSINOPHILS % (AUTO) 2.1 % (1.0-6.0); HEMATOCRIT 29.6 % (41-53); HEMOGLOBIN 9.7 g/dL (13.5-17.5); LYMPHOCYTES # (AUTO) 0.4 K/uL (1.0-4.8); LYMPHOCYTES % (AUTO) 9.3 % (22.0-44.0); MEAN CORPUSCULAR HEMOGLOBIN 27.3 pg (26.0-34.0); MEAN CORPUSCULAR HGB CONC 32.6 G/dL (31.0-37.0); MEAN CORPUSCULAR VOLUME 84 fL (80-100); MONOCYTES # (AUTO) 0.4 K/uL (0.1-1.0); MONOCYTES % (AUTO) 8.1 % (2.0-9.0); NEUTROPHILS # (AUTO) 3.5 K/uL (1.8-7.7); NEUTROPHILS % (AUTO) 80.1 % (40.0-70.0); PLATELET COUNT (AUTO) 98 K/uL (150-450); RED BLOOD CELL COUNT(AUTO) 3.54 MIL/uL (4.50-5.90); RED CELL DISTRIBUTION WIDTH 25.4 % (11.5-14.5)
[2019-10-02] MEDS ORDERED: ONDANSETRON HCL 4 MG/2 ML VIAL IVP ONE (12:15)
[2019-10-02] MEDS ORDERED: SODIUM CHLORIDE 0.9% 1,000 ML IV ONE (12:15)
[2019-10-02 12:40] LABS: ALANINE AMINOTRANSFERASE 58 U/L (12-78); ALBUMIN 3.3 g/dL (3.4-5.0); ALKALINE PHOSPHATASE 73 U/L (46-116); ANION GAP 9 mmol/L (8-16); ASPARTATE AMINOTRANSFERASE 66 U/L (15-37); BILIRUBIN,TOTAL 0.3 mg/dL (0.1-1.0); CALCIUM, TOTAL 8.2 mg/dL (8.8-10.5); CARBON DIOXIDE 28 mmol/L (22-29); CHLORIDE 100 mmol/L (98-107); CREATININE 0.75 mg/dL (0.60-1.30); GLOMERULAR FILTR. RATE CALC > 60 mL/min (>60); GLUCOSE,RANDOM 76 mg/dL (70-110); LIPASE 172 U/L (73-393); SODIUM SERUM 137 mmol/L (136-145); UREA NITROGEN, BLOOD 11 mg/dL (7-18)
[2019-10-02 12:45] LABS: POTASSIUM 2.8 mmol/L (3.5-5.1)
[2019-10-02] MEDS ORDERED: POTASSIUM CHLORIDE 10% 40 MEQ/30 ML LIQUID UDCUP PO ONE (13:00)
[2019-10-02] MEDS ORDERED: POTASSIUM CHLORIDE 20 MEQ ER TABLET PO ONE (13:30)
[2019-10-02 14:20] VITALS: BP 128/85
== END 2019-10-02 14:53 | disposition home or self-care (01) ==
LOC: EMS 11:06
DX: K25.9 Gastric ulcer, unspecified as acute or chronic, without hemorrhage or perforation (principal); E87.6 Hypokalemia; K92.0 Hematemesis; K21.9 Gastro-esophageal reflux disease without esophagitis; F20.9 Schizophrenia, unspecified; F10.20 Alcohol dependence, uncomplicated; F17.210 Nicotine dependence, cigarettes, uncomplicated; Z98.890 Other specified postprocedural states; Z79.899 Other long term (current) drug therapy; Z88.8 Allergy status to other drugs, medicaments and biological substances
CPT/HCPCS: 36415; 74022; 80053; 83690; 85025; 96361; 96374; 99284; J2405; J7030

== ENCOUNTER 2019-10-20 14:54 | Emergency (ER) | payer MEDICARE, OTHER ==
[~2019-10-20] VITALS: Ht 170.2 cm; Wt 72.7 kg
[~2019-10-20 14:54] MED LIST changes: -QUET200T PO; +QUET300T2 PO
[2019-10-20] MEDS ORDERED: PROZ10 PO (15:10)
[2019-10-20] MEDS ORDERED: PB/HYOSCY/ATR/SCOP/LIDO/MAALOX 55 ML BOTTLE PO ONE (16:30)
[2019-10-20] MEDS ORDERED: ONDANSETRON HCL 4 MG/2 ML VIAL IVP ONE (16:30)
[2019-10-20] MEDS ORDERED: FAMOTIDINE 10 MG/ML 2 ML VIAL IVP ONE (16:30)
[2019-10-20] MEDS ORDERED: MORPHINE SULFATE 4 MG/ML SYRINGE IVP ONE (16:30)
[2019-10-20 17:21] LABS: BASOPHILS % (AUTO) 2.3 % (0.0-2.0); EOSINOPHILS % (AUTO) 3.2 % (1.0-6.0); HEMATOCRIT 35.5 % (41-53); HEMOGLOBIN 11.2 g/dL (13.5-17.5); LYMPHOCYTES % (AUTO) 38.6 % (22.0-44.0); MEAN CORPUSCULAR HEMOGLOBIN 24.9 pg (26.0-34.0); MEAN CORPUSCULAR HGB CONC 31.5 G/dL (31.0-37.0); MEAN CORPUSCULAR VOLUME 79 fL (80-100); MONOCYTES # (AUTO) 0.4 K/uL (0.1-1.0); MONOCYTES % (AUTO) 7.4 % (2.0-9.0); NEUTROPHILS # (AUTO) 2.5 K/uL (1.8-7.7); NEUTROPHILS % (AUTO) 48.5 % (40.0-70.0); PLATELET COUNT (AUTO) 704 K/uL (150-450); RED CELL DISTRIBUTION WIDTH 24.4 % (11.5-14.5)
[2019-10-20 17:33] LABS: ANION GAP 14 mmol/L (8-16); CARBON DIOXIDE 26 mmol/L (22-29); CHLORIDE 103 mmol/L (98-107); GLOMERULAR FILTR. RATE CALC > 60 mL/min (>60); GLUCOSE,RANDOM 63 mg/dL (70-110); POTASSIUM 4.1 mmol/L (3.5-5.1); SODIUM SERUM 143 mmol/L (136-145); UREA NITROGEN, BLOOD 10 mg/dL (7-18)
[2019-10-20 17:36] LABS: PROTHROMBIN TIME 9.8 SEC (9.4-11.6)
[2019-10-20 17:40] LABS: ALANINE AMINOTRANSFERASE 61 U/L (12-78); ALBUMIN 4.2 g/dL (3.4-5.0); ALKALINE PHOSPHATASE 71 U/L (46-116); ASPARTATE AMINOTRANSFERASE 69 U/L (15-37); BILIRUBIN,TOTAL 0.3 mg/dL (0.1-1.0); LIPASE 137 U/L (73-393); TOTAL PROTEIN, SERUM 8.8 g/dL (6.4-8.2)
[2019-10-20 17:41] LABS: VALPROIC ACID < 3 mcg/mL (50-100)
[2019-10-20 18:10] VITALS: BP 114/60
== END 2019-10-20 18:50 | disposition home or self-care (01) ==
LOC: EMS 15:02
DX: K29.70 Gastritis, unspecified, without bleeding (principal); F10.129 Alcohol abuse with intoxication, unspecified; K21.9 Gastro-esophageal reflux disease without esophagitis; F20.9 Schizophrenia, unspecified; F17.210 Nicotine dependence, cigarettes, uncomplicated; Z88.8 Allergy status to other drugs, medicaments and biological substances
CPT/HCPCS: 36415; 80053; 80164; 83690; 83735; 85025; 85610; 85730; 86850; 86900; 86901; 96374; 96375; 99284; G0480; J2270; J2405; J3490

== ENCOUNTER 2019-10-22 11:51 | Emergency (ER) | payer MEDICARE, OTHER ==
[~2019-10-22] VITALS: Ht 170.2 cm; Wt 72.7 kg
[2019-10-22] MEDS ORDERED: ONDANSETRON HCL 4 MG/2 ML VIAL IVP ONE (12:30)
[2019-10-22] MEDS ORDERED: SODIUM CHLORIDE 0.9% 1,000 ML IV ONE (12:30)
[2019-10-22] MEDS ORDERED: PB/HYOSCY/ATR/SCOP/LIDO/MAALOX 55 ML BOTTLE PO ONE (12:45)
[2019-10-22] MEDS ORDERED: FAMOTIDINE 40 MG in SODIUM CHLORIDE 0.9% 100 ML IV ONE (12:45)
[2019-10-22 13:10] LABS: BASOPHILS % (AUTO) 1.3 % (0.0-2.0); EOSINOPHILS % (AUTO) 1.7 % (1.0-6.0); HEMATOCRIT 33.2 % (41-53); HEMOGLOBIN 10.5 g/dL (13.5-17.5); LYMPHOCYTES # (AUTO) 1.5 K/uL (1.0-4.8); LYMPHOCYTES % (AUTO) 38.9 % (22.0-44.0); MEAN CORPUSCULAR HGB CONC 31.6 G/dL (31.0-37.0); MEAN CORPUSCULAR VOLUME 79 fL (80-100); MONOCYTES # (AUTO) 0.3 K/uL (0.1-1.0); MONOCYTES % (AUTO) 7.1 % (2.0-9.0); PLATELET COUNT (AUTO) 539 K/uL (150-450); RED BLOOD CELL COUNT(AUTO) 4.21 MIL/uL (4.50-5.90); RED CELL DISTRIBUTION WIDTH 24.8 % (11.5-14.5)
[2019-10-22 13:17] LABS: ANION GAP 13 mmol/L (8-16); CARBON DIOXIDE 28 mmol/L (22-29); CHLORIDE 103 mmol/L (98-107); CREATININE 0.79 mg/dL (0.60-1.30); GLUCOSE,RANDOM 87 mg/dL (70-110); POTASSIUM 3.7 mmol/L (3.5-5.1); SODIUM SERUM 144 mmol/L (136-145); UREA NITROGEN, BLOOD 7 mg/dL (7-18)
[2019-10-22 13:18] LABS: CALCIUM, TOTAL 8.8 mg/dL (8.8-10.5); GLOMERULAR FILTR. RATE CALC > 60 mL/min (>60)
[2019-10-22 13:25] LABS: ALANINE AMINOTRANSFERASE 83 U/L (12-78); ALBUMIN 4.3 g/dL (3.4-5.0); ALKALINE PHOSPHATASE 73 U/L (46-116); ASPARTATE AMINOTRANSFERASE 109 U/L (15-37); BILIRUBIN,TOTAL 0.3 mg/dL (0.1-1.0); LIPASE 142 U/L (73-393); TOTAL PROTEIN, SERUM 8.6 g/dL (6.4-8.2)
[2019-10-22 14:12] LABS: APPEARANCE,URINE CLEAR (CLEAR); BILIRUBIN,URINE NEGATIVE (NEGATIVE); GLUCOSE, URINE (UA) NEGATIVE (NEGATIVE); KETONES,URINE NEGATIVE (NEGATIVE); LEUKOCYTE ESTERASE ,URINE NEGATIVE (NEGATIVE); NITRATE,URINE NEGATIVE (NEGATIVE); OCCULT BLOOD,URINE NEGATIVE (NEGATIVE); PH,URINE 6.5 (5.0-8.0); PROTEIN,URINE NEGATIVE (NEGATIVE); UROBILINOGEN,URINE 0.2 mg/dL (<=1.0)
[2019-10-22 15:03] VITALS: BP 123/66
== END 2019-10-22 15:30 | disposition home or self-care (01) ==
LOC: EMS 11:56
DX: F10.129 Alcohol abuse with intoxication, unspecified (principal); R10.13 Epigastric pain; F20.9 Schizophrenia, unspecified; K92.0 Hematemesis; K21.9 Gastro-esophageal reflux disease without esophagitis; F17.210 Nicotine dependence, cigarettes, uncomplicated; Z88.8 Allergy status to other drugs, medicaments and biological substances
CPT/HCPCS: 36415; 80053; 81003; 83690; 85025; 96365; 96375; 99284; 99406; G0480; J2405; J3490; J7030; J7050

== ENCOUNTER 2019-11-01 15:52 | Inpatient (IN) | payer MEDICARE, MEDICAID ==
[~2019-11-01] VITALS: Ht 170.2 cm; Wt 77.8 kg
[2019-11-01] MEDS ORDERED: HydrOXYzine PAMOATE 50 MG CAPSULE PO PRN (16:15)
[2019-11-01] MEDS ORDERED: DIAZEPAM 10 MG TABLET PO PRN (16:15)
[2019-11-01] MEDS ORDERED: QUEtiapine FUMARATE 100 MG TABLET PO PRN (16:15)
[2019-11-01] MEDS ORDERED: LOPERAMIDE HCL 2 MG CAPSULE PO PRN ×2 (16:15)
[2019-11-01] MEDS ORDERED: MAGNESIUM HYDROXIDE SUSPENSION 30 ML UDCUP PO PRN (16:15)
[2019-11-01] MEDS ORDERED: CYANOCOBALAMIN 1,000 MCG/ML VIAL IM ONE (16:15)
[2019-11-01] MEDS ORDERED: LORazepam 2 MG TABLET PO PRN (16:15)
[2019-11-01 16:43] VITALS: BP 129/89
[2019-11-01 17:10] VITALS: BP 134/86
[2019-11-01 17:18] VITALS: BP 138/86
[2019-11-01 18:10] VITALS: BP 128/64
[2019-11-01] MEDS: LevETIRAcetam 500 MG TABLET PO SCH (18:13)
[2019-11-01] MEDS: THIAMINE HCL 100 MG TABLET PO SCH (18:13)
[2019-11-01] MEDS: PHENYTOIN SODIUM 100 MG ER CAPSULE PO SCH (18:13)
[2019-11-01 19:10] VITALS: BP 120/74
[2019-11-01] MEDS: MAG HYDROX/AL HYDROX/SIMETH ES 30 ML SUSPENSION UDCUP PO PRN (19:35)
[2019-11-01 20:10] VITALS: BP 107/64
[2019-11-01] MEDS: QUEtiapine FUMARATE 200 MG TABLET PO SCH (20:32)
[2019-11-01] MEDS: GABAPENTIN 300 MG CAPSULE PO SCH (20:32)
[2019-11-02] VITALS (14 sets, daily range): BP systolic 100–147; BP diastolic 61–77
[2019-11-02] MEDS: PROMETHAZINE HCL 25 MG TABLET PO PRN ×2 (00:05→13:27)
[2019-11-02] MEDS: ACETAMINOPHEN 325 MG TABLET PO PRN ×3 (02:27→20:48)
[2019-11-02] MEDS: MAG HYDROX/AL HYDROX/SIMETH ES 30 ML SUSPENSION UDCUP PO PRN ×3 (02:27→16:53)
[2019-11-02] MEDS ORDERED: DIAZEPAM 10 MG TABLET PO PRN (07:00)
[2019-11-02 08:15] LABS: BASOPHILS % (AUTO) 1.1 % (0.0-2.0); EOSINOPHILS % (AUTO) 3.3 % (1.0-6.0); HEMATOCRIT 27.1 % (41-53); HEMOGLOBIN 8.7 g/dL (13.5-17.5); LYMPHOCYTES # (AUTO) 0.7 K/uL (1.0-4.8); LYMPHOCYTES % (AUTO) 25.3 % (22.0-44.0); MEAN CORPUSCULAR HEMOGLOBIN 25.4 pg (26.0-34.0); MEAN CORPUSCULAR HGB CONC 32.2 G/dL (31.0-37.0); MEAN CORPUSCULAR VOLUME 79 fL (80-100); MONOCYTES # (AUTO) 0.2 K/uL (0.1-1.0); MONOCYTES % (AUTO) 7.1 % (2.0-9.0); NEUTROPHILS # (AUTO) 1.8 K/uL (1.8-7.7); NEUTROPHILS % (AUTO) 63.2 % (40.0-70.0); PLATELET COUNT (AUTO) 70 K/uL (150-450); RED BLOOD CELL COUNT(AUTO) 3.43 MIL/uL (4.50-5.90); RED CELL DISTRIBUTION WIDTH 26.8 % (11.5-14.5)
[2019-11-02 08:27] LABS: HEMOGLOBIN A1C 4.9 % (3.8-5.6)
[2019-11-02] MEDS: MULTIVITAMINS WITH MINERALS, THERAPEUTIC TABLET PO SCH (08:28)
[2019-11-02] MEDS: FLUoxetine HCL 20 MG CAPSULE PO SCH (08:29)
[2019-11-02] MEDS: GABAPENTIN 300 MG CAPSULE PO SCH ×4 (08:29→20:48)
[2019-11-02] MEDS: NALTREXONE HCL 50 MG TABLET PO SCH (08:29)
[2019-11-02] MEDS: FOLIC ACID 1 MG TABLET PO SCH (08:29)
[2019-11-02] MEDS: DIAZEPAM 10 MG TABLET PO SCH ×4 (08:29→20:47)
[2019-11-02] MEDS: THIAMINE HCL 100 MG TABLET PO SCH ×2 (08:29→16:44)
[2019-11-02] MEDS: LevETIRAcetam 500 MG TABLET PO SCH ×2 (08:30→16:51)
[2019-11-02] MEDS: PHENYTOIN SODIUM 100 MG ER CAPSULE PO SCH ×2 (08:30→16:51)
[2019-11-02] MEDS: NICOTINE 14 MG/24 HOUR PATCH TD SCH (08:35)
[2019-11-02 08:49] LABS: ALANINE AMINOTRANSFERASE 36 U/L (12-78); ALBUMIN 3.3 g/dL (3.4-5.0); ALKALINE PHOSPHATASE 61 U/L (46-116); ANION GAP 6 mmol/L (8-16); ASPARTATE AMINOTRANSFERASE 42 U/L (15-37); BILIRUBIN,TOTAL 0.7 mg/dL (0.1-1.0); CALCIUM, TOTAL 8.9 mg/dL (8.8-10.5); CARBON DIOXIDE 31 mmol/L (22-29); CHLORIDE 100 mmol/L (98-107); CHOL/HDL RATIO 1.5 (4.2-7.3); CHOLESTEROL 163 mg/dL (131-200); CREATININE 0.84 mg/dL (0.60-1.30); FREE T4 (FREE THYROXINE) 0.97 ng/dL (0.76-1.46); GLOMERULAR FILTR. RATE CALC > 60 mL/min (>60); GLUCOSE,RANDOM 86 mg/dL (70-110); HDL CHOLESTEROL 106 mg/dL (40-60); LDL CHOL (CALC.) 48 mg/dL (0-130); POTASSIUM 3.2 mmol/L (3.5-5.1); SODIUM SERUM 137 mmol/L (136-145); THYROID STIMULATING HORMONE 0.39 uIU/mL (0.36-3.74); TOTAL PROTEIN, SERUM 6.8 g/dL (6.4-8.2); TRIGLYCERIDES 47 mg/dL (15-150); UREA NITROGEN, BLOOD 17 mg/dL (7-18)
[2019-11-02] MEDS ORDERED: POTASSIUM CHLORIDE 20 MEQ ER TABLET PO ONE (14:00)
[2019-11-02] MEDS: QUEtiapine FUMARATE 200 MG TABLET PO SCH (20:48)
[2019-11-02] MEDS: ZOLPIDEM TARTRATE 10 MG TABLET PO PRN (22:03)
[2019-11-03 00:12] VITALS: BP 105/57
[2019-11-03 00:21] VITALS: BP 105/57
[2019-11-03] MEDS: THIAMINE HCL 100 MG TABLET PO SCH ×2 (08:14→16:24)
[2019-11-03] MEDS: PHENYTOIN SODIUM 100 MG ER CAPSULE PO SCH ×2 (08:14→16:21)
[2019-11-03] MEDS: LevETIRAcetam 500 MG TABLET PO SCH ×2 (08:14→16:22)
[2019-11-03] MEDS: MULTIVITAMINS WITH MINERALS, THERAPEUTIC TABLET PO SCH (08:14)
[2019-11-03] MEDS: DIAZEPAM 10 MG TABLET PO SCH ×4 (08:15→19:50)
[2019-11-03] MEDS: FOLIC ACID 1 MG TABLET PO SCH (08:15)
[2019-11-03] MEDS: NALTREXONE HCL 50 MG TABLET PO SCH (08:15)
[2019-11-03] MEDS: GABAPENTIN 300 MG CAPSULE PO SCH ×4 (08:15→19:51)
[2019-11-03] MEDS: FLUoxetine HCL 20 MG CAPSULE PO SCH (08:15)
[2019-11-03] MEDS: NICOTINE 14 MG/24 HOUR PATCH TD SCH (08:17)
[2019-11-03 08:36] VITALS: BP 130/80
[2019-11-03 09:19] VITALS: BP 130/80
[2019-11-03] MEDS: PANTOPRAZOLE SODIUM 40 MG DR TABLET PO SCH ×2 (12:31→16:22)
[2019-11-03] MEDS ORDERED: DENTURE ADHESIVE 68 GM CREAM DT PRN (13:00)
[2019-11-03 17:05] VITALS: BP 115/75
[2019-11-03 19:40] VITALS: BP 140/74
[2019-11-03] MEDS: MAG HYDROX/AL HYDROX/SIMETH ES 30 ML SUSPENSION UDCUP PO PRN (19:50)
[2019-11-03] MEDS: QUEtiapine FUMARATE 200 MG TABLET PO SCH (19:51)
[2019-11-03] MEDS: ZOLPIDEM TARTRATE 10 MG TABLET PO PRN (22:04)
[2019-11-04] MEDS: ACETAMINOPHEN 325 MG TABLET PO PRN (00:07)
[2019-11-04 00:25] VITALS: BP 112/84
[2019-11-04] MEDS ORDERED: DIAZEPAM 5 MG TABLET PO PRN (07:00)
[2019-11-04 08:36] LABS: BASOPHILS % (AUTO) 0.7 % (0.0-2.0); EOSINOPHILS % (AUTO) 4.2 % (1.0-6.0); HEMATOCRIT 31.7 % (41-53); HEMOGLOBIN 9.9 g/dL (13.5-17.5); LYMPHOCYTES # (AUTO) 1.1 K/uL (1.0-4.8); LYMPHOCYTES % (AUTO) 23.8 % (22.0-44.0); MEAN CORPUSCULAR HEMOGLOBIN 25.2 pg (26.0-34.0); MEAN CORPUSCULAR HGB CONC 31.2 G/dL (31.0-37.0); MEAN CORPUSCULAR VOLUME 81 fL (80-100); MONOCYTES # (AUTO) 0.3 K/uL (0.1-1.0); MONOCYTES % (AUTO) 7.1 % (2.0-9.0); NEUTROPHILS # (AUTO) 2.9 K/uL (1.8-7.7); NEUTROPHILS % (AUTO) 64.2 % (40.0-70.0); PLATELET COUNT (AUTO) 103 K/uL (150-450); RED BLOOD CELL COUNT(AUTO) 3.94 MIL/uL (4.50-5.90); RED CELL DISTRIBUTION WIDTH 26.7 % (11.5-14.5)
[2019-11-04 08:40] VITALS: BP 104/80
[2019-11-04 09:04] LABS: ALANINE AMINOTRANSFERASE 38 U/L (12-78); ALBUMIN 3.5 g/dL (3.4-5.0); ALKALINE PHOSPHATASE 70 U/L (46-116); AMYLASE 65 U/L (25-115); ANION GAP 9 mmol/L (8-16); ASPARTATE AMINOTRANSFERASE 43 U/L (15-37); BILIRUBIN,TOTAL 0.4 mg/dL (0.1-1.0); CARBON DIOXIDE 31 mmol/L (22-29); CHLORIDE 98 mmol/L (98-107); CREATININE 0.69 mg/dL (0.60-1.30); GLOMERULAR FILTR. RATE CALC > 60 mL/min (>60); GLUCOSE,RANDOM 81 mg/dL (70-110); LIPASE 127 U/L (73-393); POTASSIUM 3.3 mmol/L (3.5-5.1); SODIUM SERUM 138 mmol/L (136-145); TOTAL PROTEIN, SERUM 7.8 g/dL (6.4-8.2); UREA NITROGEN, BLOOD 13 mg/dL (7-18)
[2019-11-04] MEDS: PHENYTOIN SODIUM 100 MG ER CAPSULE PO SCH ×2 (10:12→17:23)
[2019-11-04] MEDS: THIAMINE HCL 100 MG TABLET PO SCH ×2 (10:12→17:24)
[2019-11-04] MEDS: GABAPENTIN 300 MG CAPSULE PO SCH ×4 (10:13→20:29)
[2019-11-04] MEDS: NALTREXONE HCL 50 MG TABLET PO SCH (10:13)
[2019-11-04] MEDS: PANTOPRAZOLE SODIUM 40 MG DR TABLET PO SCH ×2 (10:13→17:24)
[2019-11-04] MEDS: MULTIVITAMINS WITH MINERALS, THERAPEUTIC TABLET PO SCH (10:13)
[2019-11-04] MEDS: FOLIC ACID 1 MG TABLET PO SCH (10:13)
[2019-11-04] MEDS: NICOTINE 14 MG/24 HOUR PATCH TD SCH (10:14)
[2019-11-04] MEDS: FLUoxetine HCL 20 MG CAPSULE PO SCH (10:14)
[2019-11-04] MEDS: LevETIRAcetam 500 MG TABLET PO SCH ×2 (10:14→17:23)
[2019-11-04] MEDS: DIAZEPAM 5 MG TABLET PO SCH ×4 (10:17→20:30)
[2019-11-04 14:11] VITALS: BP 110/76
[2019-11-04 16:00] VITALS: BP 104/64
[2019-11-04] MEDS: QUEtiapine FUMARATE 200 MG TABLET PO SCH (20:30)
[2019-11-04] MEDS: ZOLPIDEM TARTRATE 10 MG TABLET PO PRN (20:38)
[2019-11-05] MEDS: GuaiFENesin/D-METHORPHAN [SUGAR-FREE] 200-20MG/10 ML SYRUP UDCUP PO PRN ×2 (00:18→09:29)
[2019-11-05 00:27] VITALS: BP 109/69
[2019-11-05] MEDS ORDERED: DIAZEPAM 5 MG TABLET PO PRN (07:00)
[2019-11-05 08:14] VITALS: BP 124/79
[2019-11-05] MEDS: NALTREXONE HCL 50 MG TABLET PO SCH (09:28)
[2019-11-05] MEDS: LevETIRAcetam 500 MG TABLET PO SCH ×2 (09:28→16:32)
[2019-11-05] MEDS: PANTOPRAZOLE SODIUM 40 MG DR TABLET PO SCH ×2 (09:28→16:33)
[2019-11-05] MEDS: PHENYTOIN SODIUM 100 MG ER CAPSULE PO SCH ×2 (09:28→16:32)
[2019-11-05] MEDS: FLUoxetine HCL 20 MG CAPSULE PO SCH (09:29)
[2019-11-05] MEDS: FOLIC ACID 1 MG TABLET PO SCH (09:29)
[2019-11-05] MEDS: GABAPENTIN 300 MG CAPSULE PO SCH ×4 (09:29→20:56)
[2019-11-05] MEDS: THIAMINE HCL 100 MG TABLET PO SCH ×2 (09:29→16:33)
[2019-11-05] MEDS: MULTIVITAMINS WITH MINERALS, THERAPEUTIC TABLET PO SCH (09:29)
[2019-11-05] MEDS: NICOTINE 14 MG/24 HOUR PATCH TD SCH (09:30)
[2019-11-05 11:02] VITALS: BP 120/70
[2019-11-05] MEDS: POTASSIUM CHLORIDE 20 MEQ ER TABLET PO SCH ×2 (14:56→16:32)
[2019-11-05 16:09] VITALS: BP 124/80
[2019-11-05 17:05] VITALS: BP 124/80
[2019-11-05] MEDS: QUEtiapine FUMARATE 200 MG TABLET PO SCH (20:57)
[2019-11-06 06:43] VITALS: BP 110/76
[2019-11-06 06:44] VITALS: BP 110/76
[2019-11-06] MEDS: LevETIRAcetam 500 MG TABLET PO SCH ×2 (08:20→16:26)
[2019-11-06] MEDS: THIAMINE HCL 100 MG TABLET PO SCH ×2 (08:26→16:26)
[2019-11-06] MEDS: MULTIVITAMINS WITH MINERALS, THERAPEUTIC TABLET PO SCH (08:26)
[2019-11-06] MEDS: PHENYTOIN SODIUM 100 MG ER CAPSULE PO SCH ×2 (08:26→16:26)
[2019-11-06] MEDS: FLUoxetine HCL 20 MG CAPSULE PO SCH (08:26)
[2019-11-06] MEDS: PANTOPRAZOLE SODIUM 40 MG DR TABLET PO SCH ×2 (08:26→16:26)
[2019-11-06] MEDS: GABAPENTIN 300 MG CAPSULE PO SCH ×4 (08:26→20:36)
[2019-11-06] MEDS: FOLIC ACID 1 MG TABLET PO SCH (08:27)
[2019-11-06] MEDS: NALTREXONE HCL 50 MG TABLET PO SCH (08:27)
[2019-11-06 08:31] VITALS: BP 109/72
[2019-11-06] MEDS: NICOTINE 14 MG/24 HOUR PATCH TD SCH (08:31)
[2019-11-06] MEDS ORDERED: QUET200T29 PO ×2 (15:10→16:20)
[2019-11-06] MEDS ORDERED: FLUO-191 PO (15:10)
[2019-11-06] MEDS ORDERED: PHENY100 PO (15:10)
[2019-11-06] MEDS ORDERED: NALT50TA PO (15:10)
[2019-11-06] MEDS ORDERED: GABA-531 PO (15:10)
[2019-11-06] MEDS ORDERED: LEVE500T53 PO (15:10)
[2019-11-06 16:08] VITALS: BP 109/79
[2019-11-06] MEDS ORDERED: QUEtiapine FUMARATE 200 MG TABLET PO SCH (21:00)
[2019-11-07 01:06] VITALS: BP 105/66
[2019-11-07] MEDS: PHENYTOIN SODIUM 100 MG ER CAPSULE PO SCH (08:03)
[2019-11-07] MEDS: FLUoxetine HCL 20 MG CAPSULE PO SCH (08:04)
[2019-11-07] MEDS: THIAMINE HCL 100 MG TABLET PO SCH (08:04)
[2019-11-07] MEDS: FOLIC ACID 1 MG TABLET PO SCH (08:04)
[2019-11-07] MEDS: LevETIRAcetam 500 MG TABLET PO SCH (08:04)
[2019-11-07] MEDS: PANTOPRAZOLE SODIUM 40 MG DR TABLET PO SCH (08:04)
[2019-11-07] MEDS: MULTIVITAMINS WITH MINERALS, THERAPEUTIC TABLET PO SCH (08:04)
[2019-11-07] MEDS: GABAPENTIN 300 MG CAPSULE PO SCH (08:04)
[2019-11-07] MEDS: NALTREXONE HCL 50 MG TABLET PO SCH (08:05)
[2019-11-07] MEDS: NICOTINE 14 MG/24 HOUR PATCH TD SCH (08:08)
[2019-11-07 08:18] VITALS: BP 109/71
[2019-11-07 08:31] LABS: BASOPHILS % (AUTO) 1.5 % (0.0-2.0); EOSINOPHILS % (AUTO) 6.1 % (1.0-6.0); HEMOGLOBIN 9.2 g/dL (13.5-17.5); LYMPHOCYTES # (AUTO) 1.1 K/uL (1.0-4.8); LYMPHOCYTES % (AUTO) 34.2 % (22.0-44.0); MEAN CORPUSCULAR HEMOGLOBIN 25.7 pg (26.0-34.0); MEAN CORPUSCULAR HGB CONC 31.7 G/dL (31.0-37.0); MEAN CORPUSCULAR VOLUME 81 fL (80-100); MONOCYTES # (AUTO) 0.7 K/uL (0.1-1.0); MONOCYTES % (AUTO) 19.6 % (2.0-9.0); NEUTROPHILS # (AUTO) 1.3 K/uL (1.8-7.7); NEUTROPHILS % (AUTO) 38.6 % (40.0-70.0); PLATELET COUNT (AUTO) 192 K/uL (150-450); RED BLOOD CELL COUNT(AUTO) 3.57 MIL/uL (4.50-5.90); RED CELL DISTRIBUTION WIDTH 26.6 % (11.5-14.5)
[2019-11-07 08:50] LABS: ALANINE AMINOTRANSFERASE 60 U/L (12-78); ALKALINE PHOSPHATASE 68 U/L (46-116); ANION GAP 5 mmol/L (8-16); ASPARTATE AMINOTRANSFERASE 60 U/L (15-37); BILIRUBIN,TOTAL 0.1 mg/dL (0.1-1.0); CALCIUM, TOTAL 8.6 mg/dL (8.8-10.5); CARBON DIOXIDE 29 mmol/L (22-29); CHLORIDE 104 mmol/L (98-107); CREATININE 0.71 mg/dL (0.60-1.30); GLOMERULAR FILTR. RATE CALC > 60 mL/min (>60); GLUCOSE,RANDOM 83 mg/dL (70-110); PHENYTOIN (DILANTIN) 16.2 mcg/mL (10.0-20.0); POTASSIUM 4.3 mmol/L (3.5-5.1); SODIUM SERUM 138 mmol/L (136-145); TOTAL PROTEIN, SERUM 7.1 g/dL (6.4-8.2); UREA NITROGEN, BLOOD 11 mg/dL (7-18)
== END 2019-11-07 12:30 | disposition home or self-care (01) | DRG 885 ==
LOC: B2X 16:21
PROVIDERS: ADMIT Psychiatry & Neurology Psychiatry; ATTEND Psychiatry & Neurology Psychiatry
DX: F25.1 Schizoaffective disorder, depressive type (principal); B19.20 Unspecified viral hepatitis C without hepatic coma; D61.818 Other pancytopenia; F10.239 Alcohol dependence with withdrawal, unspecified; I85.10 Secondary esophageal varices without bleeding; E78.5 Hyperlipidemia, unspecified; E87.6 Hypokalemia; F17.210 Nicotine dependence, cigarettes, uncomplicated; G40.409 Other generalized epilepsy and epileptic syndromes, not intractable, without status epilepticus; I10 Essential (primary) hypertension; J44.9 Chronic obstructive pulmonary disease, unspecified; K21.0 Gastro-esophageal reflux disease with esophagitis; K74.60 Unspecified cirrhosis of liver; N40.0 Benign prostatic hyperplasia without lower urinary tract symptoms; Z59.9 Problem related to housing and economic circumstances, unspecified; Z65.3 Problems related to other legal circumstances; Z85.46 Personal history of malignant neoplasm of prostate; Z90.79 Acquired absence of other genital organ(s); Z91.14 Patient's other noncompliance with medication regimen
CPT/HCPCS: 83036; 84439; 84443; 86592; G0482; J3420

== ENCOUNTER 2020-04-06 04:23 | Emergency (ER) | payer MEDICARE, OTHER ==
[~2020-04-06] VITALS: Ht 170.2 cm; Wt 77.3 kg
[~2020-04-06 04:23] MED LIST changes: +NALT50TA PO; -PANT40TA25 PO; -PHEN100C23 PO; +PHENY100 PO; +QUET200T29 PO; -QUET300T2 PO; -THIA100T67 PO
[2020-04-06 04:50] VITALS: BP 116/69
[2020-04-06] MEDS ORDERED: HYDROCODONE/ACETAMINOPHEN 5-325 MG TABLET PO ONE (05:00)
== END 2020-04-06 05:24 | disposition home or self-care (01) ==
LOC: EMS 04:25
DX: K04.01 Reversible pulpitis (principal); F25.9 Schizoaffective disorder, unspecified

== ENCOUNTER 2020-04-25 13:40 | Inpatient (IN) | payer MEDICARE, MEDICAID ==
[~2020-04-25] VITALS: Ht 170.2 cm; Wt 75.5 kg
[2020-04-25] MEDS ORDERED: ZOLPIDEM TARTRATE 10 MG TABLET PO PRN ×3 (19:15→21:30)
[2020-04-25] MEDS ORDERED: LORazepam 2 MG TABLET PO PRN ×2 (19:15→19:30)
[2020-04-25] MEDS ORDERED: HALOPERIDOL 5 MG TABLET PO PRN ×2 (19:15→19:30)
[2020-04-25] MEDS ORDERED: ChlorproMAZINE HCL 100 MG TABLET PO PRN (20:00)
[2020-04-25] MEDS ORDERED: ZOLPIDEM TARTRATE 5 MG TABLET PO PRN ×2 (20:00→21:30)
[2020-04-25] MEDS ORDERED: LORazepam 1 MG TABLET PO PRN (20:00)
[2020-04-25 20:29] VITALS: BP 101/74
[2020-04-25 20:50] VITALS: BP 106/56
[2020-04-25] MEDS ORDERED: INFLUENZA VIRUS VACCINE QVS 2020-21 (6MO+)/PF 60 MCG/0.5 ML SYRINGE IM ONE (21:00)
[2020-04-25] MEDS: DiphenhydrAMINE HCL 50 MG CAPSULE PO SCH (21:10)
[2020-04-25] MEDS ORDERED: CYANOCOBALAMIN 1,000 MCG/ML VIAL IM ONE (21:30)
[2020-04-25] MEDS ORDERED: HydrOXYzine PAMOATE 50 MG CAPSULE PO PRN (21:30)
[2020-04-25] MEDS ORDERED: LOPERAMIDE HCL 2 MG CAPSULE PO PRN ×2 (21:30)
[2020-04-25] MEDS ORDERED: GuaiFENesin/D-METHORPHAN [SUGAR-FREE] 200-20MG/10 ML SYRUP UDCUP PO PRN (21:30)
[2020-04-25] MEDS ORDERED: MAGNESIUM HYDROXIDE SUSPENSION 30 ML UDCUP PO PRN (21:30)
[2020-04-25] MEDS ORDERED: DIAZEPAM 10 MG TABLET PO PRN (21:30)
[2020-04-25] MEDS ORDERED: PROMETHAZINE HCL 25 MG TABLET PO PRN (21:30)
[2020-04-25] MEDS ORDERED: QUEtiapine FUMARATE 25 MG TABLET PO PRN (21:30)
[2020-04-25 21:50] VITALS: BP 102/62
[2020-04-25 22:50] VITALS: BP 115/78
[2020-04-26 00:17] VITALS: BP 117/68
[2020-04-26 00:19] VITALS: BP 117/68
[2020-04-26 06:47] VITALS: BP 132/84
[2020-04-26] MEDS ORDERED: DIAZEPAM 10 MG TABLET PO PRN (07:00)
[2020-04-26 08:20] VITALS: BP 112/73
[2020-04-26] MEDS: NALTREXONE HCL 50 MG TABLET PO SCH (09:03)
[2020-04-26] MEDS: LevETIRAcetam 500 MG TABLET PO SCH ×2 (09:03→16:39)
[2020-04-26] MEDS: PHENYTOIN SODIUM 100 MG ER CAPSULE PO SCH ×2 (09:03→16:39)
[2020-04-26] MEDS: MULTIVITAMINS WITH MINERALS, THERAPEUTIC TABLET PO SCH (09:04)
[2020-04-26] MEDS: DIAZEPAM 10 MG TABLET PO SCH ×4 (09:04→20:34)
[2020-04-26] MEDS: GABAPENTIN 300 MG CAPSULE PO SCH ×4 (09:04→20:35)
[2020-04-26] MEDS: FOLIC ACID 1 MG TABLET PO SCH (09:04)
[2020-04-26] MEDS: OMEGA-3/DHA/EPA/FISH OIL 1,000 MG CAPSULE PO SCH (09:04)
[2020-04-26] MEDS: THIAMINE 100 MG TABLET PO SCH ×2 (09:05→16:39)
[2020-04-26] MEDS: PALIPERIDONE 6 MG ER TABLET PO SCH (09:26)
[2020-04-26] MEDS: FLUoxetine HCL 10 MG CAPSULE PO SCH (09:26)
[2020-04-26] MEDS: PANTOPRAZOLE SODIUM 40 MG DR TABLET PO SCH (10:45)
[2020-04-26 16:28] VITALS: BP 112/79
[2020-04-26 17:03] VITALS: BP 112/79
[2020-04-26] MEDS: MAG HYDROX/AL HYDROX/SIMETH ES 30 ML SUSPENSION UDCUP PO PRN (20:00)
[2020-04-26] MEDS: QUEtiapine FUMARATE 300 MG TABLET PO SCH (20:34)
[2020-04-26] MEDS: DiphenhydrAMINE HCL 50 MG CAPSULE PO SCH (20:35)
[2020-04-26] MEDS ORDERED: QUEtiapine FUMARATE 200 MG TABLET PO SCH (21:00)
[2020-04-27 05:14] VITALS: BP 119/79
[2020-04-27 08:00] VITALS: BP 110/70
[2020-04-27 08:06] LABS: BASOPHILS % (AUTO) 0.8 % (0.0-2.0); EOSINOPHILS % (AUTO) 2.9 % (1.0-6.0); HEMATOCRIT 35.1 % (41-53); LYMPHOCYTES # (AUTO) 0.9 K/uL (1.0-4.8); LYMPHOCYTES % (AUTO) 21.3 % (22.0-44.0); MEAN CORPUSCULAR HEMOGLOBIN 23.7 pg (26.0-34.0); MEAN CORPUSCULAR HGB CONC 31.4 G/dL (31.0-37.0); MEAN CORPUSCULAR VOLUME 75 fL (80-100); MONOCYTES # (AUTO) 0.3 K/uL (0.1-1.0); MONOCYTES % (AUTO) 7.4 % (2.0-9.0); NEUTROPHILS # (AUTO) 2.9 K/uL (1.8-7.7); NEUTROPHILS % (AUTO) 67.6 % (40.0-70.0); PLATELET COUNT (AUTO) 204 K/uL (150-450); RED BLOOD CELL COUNT(AUTO) 4.65 MIL/uL (4.50-5.90); RED CELL DISTRIBUTION WIDTH 23.8 % (11.5-14.5)
[2020-04-27 08:21] VITALS: BP 110/70
[2020-04-27 08:26] LABS: HEMOGLOBIN A1C 4.8 % (3.8-5.6)
[2020-04-27 08:31] LABS: ALANINE AMINOTRANSFERASE 61 U/L (12-78); ALBUMIN 3.3 g/dL (3.4-5.0); ALKALINE PHOSPHATASE 51 U/L (46-116); ANION GAP 7 mmol/L (8-16); ASPARTATE AMINOTRANSFERASE 52 U/L (15-37); BILIRUBIN,TOTAL 0.6 mg/dL (0.1-1.0); CALCIUM, TOTAL 8.7 mg/dL (8.8-10.5); CARBON DIOXIDE 28 mmol/L (22-29); CHLORIDE 99 mmol/L (98-107); CHOL/HDL RATIO 1.5 (4.2-7.3); CHOLESTEROL 191 mg/dL (131-200); CREATININE 0.76 mg/dL (0.60-1.30); FREE T4 (FREE THYROXINE) 1.04 ng/dL (0.76-1.46); GLOMERULAR FILTR. RATE CALC > 60 mL/min (>60); GLUCOSE,RANDOM 86 mg/dL (70-110); HDL CHOLESTEROL 131 mg/dL (40-60); LDL CHOL (CALC.) 53 mg/dL (0-130); POTASSIUM 3.9 mmol/L (3.5-5.1); SODIUM SERUM 134 mmol/L (136-145); THYROID STIMULATING HORMONE 0.86 uIU/mL (0.36-3.74); TOTAL PROTEIN, SERUM 6.9 g/dL (6.4-8.2); TRIGLYCERIDES 35 mg/dL (15-150); UREA NITROGEN, BLOOD 10 mg/dL (7-18)
[2020-04-27] MEDS: GABAPENTIN 300 MG CAPSULE PO SCH ×4 (09:25→20:42)
[2020-04-27] MEDS: OMEGA-3/DHA/EPA/FISH OIL 1,000 MG CAPSULE PO SCH (09:25)
[2020-04-27] MEDS: PANTOPRAZOLE SODIUM 40 MG DR TABLET PO SCH (09:25)
[2020-04-27] MEDS: PALIPERIDONE 6 MG ER TABLET PO SCH (09:25)
[2020-04-27] MEDS: MULTIVITAMINS WITH MINERALS, THERAPEUTIC TABLET PO SCH (09:26)
[2020-04-27] MEDS: DIAZEPAM 10 MG TABLET PO SCH ×4 (09:27→20:42)
[2020-04-27] MEDS: FOLIC ACID 1 MG TABLET PO SCH (09:28)
[2020-04-27] MEDS: NALTREXONE HCL 50 MG TABLET PO SCH (09:28)
[2020-04-27] MEDS: FLUoxetine HCL 10 MG CAPSULE PO SCH (09:28)
[2020-04-27] MEDS: PHENYTOIN SODIUM 100 MG ER CAPSULE PO SCH ×2 (09:30→16:59)
[2020-04-27] MEDS: THIAMINE 100 MG TABLET PO SCH ×2 (09:32→16:58)
[2020-04-27] MEDS: LevETIRAcetam 500 MG TABLET PO SCH ×2 (11:09→16:59)
[2020-04-27 19:07] VITALS: BP 108/84
[2020-04-27 19:08] VITALS: BP 108/84
[2020-04-27] MEDS: QUEtiapine FUMARATE 300 MG TABLET PO SCH (20:37)
[2020-04-27] MEDS: DiphenhydrAMINE HCL 50 MG CAPSULE PO SCH (20:37)
[2020-04-27] MEDS: DENTURE ADHESIVE 68 GM CREAM DT PRN (21:56)
[2020-04-28 00:04] VITALS: BP 111/80
[2020-04-28] MEDS: ACETAMINOPHEN 325 MG TABLET PO PRN (00:09)
[2020-04-28] MEDS ORDERED: DIAZEPAM 5 MG TABLET PO PRN (07:00)
[2020-04-28] MEDS: FOLIC ACID 1 MG TABLET PO SCH (09:21)
[2020-04-28] MEDS: OMEGA-3/DHA/EPA/FISH OIL 1,000 MG CAPSULE PO SCH (09:21)
[2020-04-28] MEDS: PHENYTOIN SODIUM 100 MG ER CAPSULE PO SCH ×2 (09:21→16:52)
[2020-04-28] MEDS: PALIPERIDONE 6 MG ER TABLET PO SCH (09:21)
[2020-04-28] MEDS: LevETIRAcetam 500 MG TABLET PO SCH ×2 (09:21→16:53)
[2020-04-28] MEDS: GABAPENTIN 300 MG CAPSULE PO SCH ×4 (09:22→20:37)
[2020-04-28] MEDS: PANTOPRAZOLE SODIUM 40 MG DR TABLET PO SCH (09:22)
[2020-04-28 09:23] VITALS: BP 113/88
[2020-04-28] MEDS: NALTREXONE HCL 50 MG TABLET PO SCH (09:23)
[2020-04-28] MEDS: FLUoxetine HCL 10 MG CAPSULE PO SCH (09:23)
[2020-04-28] MEDS: MULTIVITAMINS WITH MINERALS, THERAPEUTIC TABLET PO SCH (09:23)
[2020-04-28] MEDS: THIAMINE 100 MG TABLET PO SCH ×2 (09:26→16:52)
[2020-04-28] MEDS: DIAZEPAM 5 MG TABLET PO SCH ×4 (10:32→20:37)
[2020-04-28 17:35] VITALS: BP 104/78
[2020-04-28] MEDS: DiphenhydrAMINE HCL 50 MG CAPSULE PO SCH (20:37)
[2020-04-28] MEDS: QUEtiapine FUMARATE 300 MG TABLET PO SCH (20:37)
[2020-04-29 00:18] VITALS: BP 115/63
[2020-04-29] MEDS ORDERED: DIAZEPAM 5 MG TABLET PO PRN (07:00)
[2020-04-29 08:21] VITALS: BP 92/70
[2020-04-29 09:31] VITALS: BP 92/70
[2020-04-29] MEDS: PALIPERIDONE 6 MG ER TABLET PO SCH (09:33)
[2020-04-29] MEDS: FLUoxetine HCL 10 MG CAPSULE PO SCH (09:34)
[2020-04-29] MEDS: PANTOPRAZOLE SODIUM 40 MG DR TABLET PO SCH (09:34)
[2020-04-29] MEDS: MULTIVITAMINS WITH MINERALS, THERAPEUTIC TABLET PO SCH (09:34)
[2020-04-29] MEDS: THIAMINE 100 MG TABLET PO SCH ×2 (09:34→16:37)
[2020-04-29] MEDS: FOLIC ACID 1 MG TABLET PO SCH (09:35)
[2020-04-29] MEDS: GABAPENTIN 300 MG CAPSULE PO SCH ×2 (09:35→13:27)
[2020-04-29] MEDS: OMEGA-3/DHA/EPA/FISH OIL 1,000 MG CAPSULE PO SCH (09:35)
[2020-04-29] MEDS: PHENYTOIN SODIUM 100 MG ER CAPSULE PO SCH ×2 (09:36→16:37)
[2020-04-29] MEDS: NALTREXONE HCL 50 MG TABLET PO SCH (09:37)
[2020-04-29] MEDS: LevETIRAcetam 500 MG TABLET PO SCH ×2 (09:37→16:37)
[2020-04-29] MEDS: MAG HYDROX/AL HYDROX/SIMETH ES 30 ML SUSPENSION UDCUP PO PRN (14:08)
[2020-04-29 16:09] VITALS: BP 111/78
[2020-04-29] MEDS: GABAPENTIN 400 MG CAPSULE PO SCH ×2 (16:37→20:32)
[2020-04-29 19:20] VITALS: BP 111/78
[2020-04-29] MEDS: DiphenhydrAMINE HCL 50 MG CAPSULE PO SCH (20:32)
[2020-04-29] MEDS ORDERED: QUEtiapine FUMARATE 200 MG TABLET PO SCH (21:00)
[2020-04-30 00:26] VITALS: BP 109/76
[2020-04-30 00:30] VITALS: BP 109/76
[2020-04-30 08:16] VITALS: BP 140/86
[2020-04-30 08:17] VITALS: BP 140/86
[2020-04-30] MEDS: MULTIVITAMINS WITH MINERALS, THERAPEUTIC TABLET PO SCH (09:04)
[2020-04-30] MEDS: PANTOPRAZOLE SODIUM 40 MG DR TABLET PO SCH (09:04)
[2020-04-30] MEDS: GABAPENTIN 400 MG CAPSULE PO SCH ×3 (09:04→16:31)
[2020-04-30] MEDS: OMEGA-3/DHA/EPA/FISH OIL 1,000 MG CAPSULE PO SCH (09:04)
[2020-04-30] MEDS: FOLIC ACID 1 MG TABLET PO SCH (09:04)
[2020-04-30] MEDS: LevETIRAcetam 500 MG TABLET PO SCH ×2 (09:05→16:31)
[2020-04-30] MEDS: FLUoxetine HCL 10 MG CAPSULE PO SCH (09:06)
[2020-04-30] MEDS: PHENYTOIN SODIUM 100 MG ER CAPSULE PO SCH ×2 (09:06→16:31)
[2020-04-30] MEDS: NALTREXONE HCL 50 MG TABLET PO SCH (09:08)
[2020-04-30] MEDS: THIAMINE 100 MG TABLET PO SCH ×2 (09:08→16:31)
[2020-04-30] MEDS: DENTURE ADHESIVE 68 GM CREAM DT PRN (14:03)
[2020-04-30 16:36] VITALS: BP 118/84
[2020-04-30 16:37] VITALS: BP 118/84
[2020-04-30] MEDS: GABAPENTIN 300 MG CAPSULE PO SCH (20:41)
[2020-04-30] MEDS: DiphenhydrAMINE HCL 50 MG CAPSULE PO SCH (20:43)
[2020-04-30] MEDS ORDERED: QUEtiapine FUMARATE 300 MG TABLET PO SCH (21:00)
[2020-05-01 00:35] VITALS: BP 102/64
[2020-05-01 02:56] VITALS: BP 116/86
[2020-05-01 08:30] VITALS: BP 124/83
[2020-05-01 09:04] VITALS: BP 124/83
[2020-05-01] MEDS: PHENYTOIN SODIUM 100 MG ER CAPSULE PO SCH (10:46)
[2020-05-01] MEDS: LevETIRAcetam 500 MG TABLET PO SCH (10:47)
[2020-05-01] MEDS: NALTREXONE HCL 50 MG TABLET PO SCH (10:47)
[2020-05-01] MEDS: PANTOPRAZOLE SODIUM 40 MG DR TABLET PO SCH (10:47)
[2020-05-01] MEDS: GABAPENTIN 300 MG CAPSULE PO SCH ×2 (10:47→12:27)
[2020-05-01] MEDS: MULTIVITAMINS WITH MINERALS, THERAPEUTIC TABLET PO SCH (10:47)
[2020-05-01] MEDS: FOLIC ACID 1 MG TABLET PO SCH (10:47)
[2020-05-01] MEDS: FLUoxetine HCL 10 MG CAPSULE PO SCH (10:48)
[2020-05-01] MEDS: THIAMINE 100 MG TABLET PO SCH (10:48)
[2020-05-01] MEDS: OMEGA-3/DHA/EPA/FISH OIL 1,000 MG CAPSULE PO SCH (10:48)
[2020-05-01] MEDS: ACETAMINOPHEN 325 MG TABLET PO PRN (12:28)
[2020-05-01] MEDS ORDERED: PHENY100 PO (16:21)
[2020-05-01] MEDS ORDERED: DIPH50 PO (16:21)
[2020-05-01] MEDS ORDERED: NALT50TA PO (16:21)
[2020-05-01] MEDS ORDERED: QUET200T29 PO (16:21)
[2020-05-01] MEDS ORDERED: GABA-1181 PO (16:21)
[2020-05-01] MEDS ORDERED: OMEG-135 PO (16:21)
[2020-05-01] MEDS ORDERED: LEVE500T53 PO (16:21)
[2020-05-01] MEDS ORDERED: PROZ10 PO (16:21)
[2020-05-01 16:23] VITALS: BP 130/85
[2020-05-01] MEDS ORDERED: PANT-31 PO (16:35)
[2020-05-01] MEDS ORDERED: QUEtiapine FUMARATE 200 MG TABLET PO SCH (21:00)
== END 2020-05-01 18:00 | disposition home or self-care (01) | DRG 885 ==
LOC: B2X 19:30
PROVIDERS: ADMIT Psychiatry & Neurology Psychiatry; ATTEND Psychiatry & Neurology Psychiatry
DX: F25.9 Schizoaffective disorder, unspecified (principal); B19.20 Unspecified viral hepatitis C without hepatic coma; R56.9 Unspecified convulsions; K21.9 Gastro-esophageal reflux disease without esophagitis; N40.0 Benign prostatic hyperplasia without lower urinary tract symptoms; D64.9 Anemia, unspecified; J44.9 Chronic obstructive pulmonary disease, unspecified; E78.5 Hyperlipidemia, unspecified; F10.20 Alcohol dependence, uncomplicated; I10 Essential (primary) hypertension; K21.00 Gastro-esophageal reflux disease with esophagitis, without bleeding; M19.039 Primary osteoarthritis, unspecified wrist; D72.819 Decreased white blood cell count, unspecified; Z55.9 Problems related to education and literacy, unspecified; Z59.9 Problem related to housing and economic circumstances, unspecified; Z65.3 Problems related to other legal circumstances; Z72.0 Tobacco use; Z87.11 Personal history of peptic ulcer disease; Z87.19 Personal history of other diseases of the digestive system; Z90.79 Acquired absence of other genital organ(s); Z91.14 Patient's other noncompliance with medication regimen; Z88.8 Allergy status to other drugs, medicaments and biological substances; Z59.0 Homelessness
CPT/HCPCS: 83036; 84439; 84443; 86592; 87426; G0480; G0482; J3420

== ENCOUNTER 2020-04-25 15:45 | Emergency (ER) | payer MEDICARE, OTHER ==
[~2020-04-25] VITALS: Ht 170.2 cm; Wt 74.4 kg
[2020-04-25 16:59] LABS: COVID AG,FIA SOURCE NASOPHARYNGEAL
[2020-04-25] MEDS ORDERED: QUEtiapine FUMARATE 100 MG TABLET PO ONE (17:00)
[2020-04-25] MEDS ORDERED: LevETIRAcetam 500 MG TABLET PO ONE (17:00)
[2020-04-25 17:03] LABS: HEMATOCRIT 35.5 % (41-53); HEMOGLOBIN 11.3 g/dL (13.5-17.5); MEAN CORPUSCULAR HEMOGLOBIN 23.7 pg (26.0-34.0); MEAN CORPUSCULAR HGB CONC 31.8 G/dL (31.0-37.0); MEAN CORPUSCULAR VOLUME 74 fL (80-100); PLATELET COUNT (AUTO) 292 K/uL (150-450); RED BLOOD CELL COUNT(AUTO) 4.77 MIL/uL (4.50-5.90); RED CELL DISTRIBUTION WIDTH 23.8 % (11.5-14.5)
[2020-04-25 17:10] LABS: ANION GAP 16 mmol/L (8-16); CALCIUM, TOTAL 8.3 mg/dL (8.8-10.5); CARBON DIOXIDE 24 mmol/L (22-29); CHLORIDE 98 mmol/L (98-107); CREATININE 0.75 mg/dL (0.60-1.30); GLOMERULAR FILTR. RATE CALC > 60 mL/min (>60); GLUCOSE,RANDOM 68 mg/dL (70-110); POTASSIUM 4.1 mmol/L (3.5-5.1); SODIUM SERUM 138 mmol/L (136-145); UREA NITROGEN, BLOOD 6 mg/dL (7-18)
[2020-04-25 17:18] LABS: BAND NEUTROPHILS % (MANUAL) 0 % (0-5); EOSINOPHILS % (MANUAL) 1 % (1-6); LYMPHOCYTES % (MANUAL) 44 % (22-44); MONOCYTES % (MANUAL) 3 % (2-9); SEGMENTED NEUTROPHILS % 52 % (40-70)
[2020-04-25 17:25] LABS: ALANINE AMINOTRANSFERASE 71 U/L (12-78); ALBUMIN 4.1 g/dL (3.4-5.0); ALKALINE PHOSPHATASE 52 U/L (46-116); ASPARTATE AMINOTRANSFERASE 84 U/L (15-37); BILIRUBIN,TOTAL 0.5 mg/dL (0.1-1.0); CHOL/HDL RATIO 1.6 (4.2-7.3); CHOLESTEROL 229 mg/dL (131-200); FREE T4 (FREE THYROXINE) 1.02 ng/dL (0.76-1.46); HDL CHOLESTEROL 147 mg/dL (40-60); LDL CHOL (CALC.) 73 mg/dL (0-130); THYROID STIMULATING HORMONE 0.68 uIU/mL (0.36-3.74); TOTAL PROTEIN, SERUM 7.8 g/dL (6.4-8.2); TRIGLYCERIDES 45 mg/dL (15-150)
[2020-04-25 17:55] VITALS: BP 122/82
== END 2020-04-25 18:45 | disposition home or self-care (01) ==
LOC: EMS 15:54
DX: F10.129 Alcohol abuse with intoxication, unspecified (principal); K70.30 Alcoholic cirrhosis of liver without ascites; F25.9 Schizoaffective disorder, unspecified; F31.9 Bipolar disorder, unspecified; K21.9 Gastro-esophageal reflux disease without esophagitis; F17.210 Nicotine dependence, cigarettes, uncomplicated; Z20.828 Contact with and (suspected) exposure to other viral communicable diseases; Z88.8 Allergy status to other drugs, medicaments and biological substances; Y90.8 Blood alcohol level of 240 mg/100 ml or more
CPT/HCPCS: 36415; 80053; 80061; 84439; 84443; 85025; 87426; 99283; G0480

== ENCOUNTER 2020-06-25 14:10 | Emergency (ER) | payer MEDICARE, OTHER ==
[~2020-06-25] VITALS: Ht 167.6 cm; Wt 68.2 kg
[~2020-06-25 14:10] MED LIST changes: +DIPH50 PO; -FLUO-191 PO; +GABA-1181 PO; -GABA-531 PO; +OMEG-135 PO; +PANT-31 PO; +PROZ10 PO
[2020-06-25 14:22] VITALS: BP 125/69
== END 2020-06-25 14:57 | disposition home or self-care (01) ==
LOC: EMS 14:10
DX: F25.9 Schizoaffective disorder, unspecified (principal); R05 Cough; F31.9 Bipolar disorder, unspecified; K21.9 Gastro-esophageal reflux disease without esophagitis; F17.210 Nicotine dependence, cigarettes, uncomplicated; Z20.828 Contact with and (suspected) exposure to other viral communicable diseases; Z88.8 Allergy status to other drugs, medicaments and biological substances
CPT/HCPCS: 99283; U0003

== ENCOUNTER 2021-08-07 12:21 | Emergency (ER) | payer MEDICARE, OTHER ==
[~2021-08-07] VITALS: Ht 170.2 cm; Wt 77.3 kg
[~2021-08-07 12:21] MED LIST changes: +FLUO10CA24 PO; +LEVE500T20 PO; -LEVE500T53 PO; -PROZ10 PO; -QUET200T29 PO; +QUET200T30 PO
[2021-08-07 13:07] LABS: BASOPHILS % (AUTO) 1.4 % (0.0-2.0); EOSINOPHILS % (AUTO) 1.6 % (1.0-6.0); HEMATOCRIT 44.1 % (41-53); HEMOGLOBIN 14.8 g/dL (13.5-17.5); LYMPHOCYTES # (AUTO) 0.8 K/uL (1.0-4.8); LYMPHOCYTES % (AUTO) 13.6 % (22.0-44.0); MEAN CORPUSCULAR HEMOGLOBIN 29.6 pg (26.0-34.0); MEAN CORPUSCULAR HGB CONC 33.7 G/dL (31.0-37.0); MEAN CORPUSCULAR VOLUME 88 fL (80-100); MONOCYTES # (AUTO) 0.7 K/uL (0.1-1.0); MONOCYTES % (AUTO) 11.4 % (2.0-9.0); NEUTROPHILS # (AUTO) 4.1 K/uL (1.8-7.7); PLATELET COUNT (AUTO) 254 K/uL (150-450); RED BLOOD CELL COUNT(AUTO) 5.01 MIL/uL (4.50-5.90); RED CELL DISTRIBUTION WIDTH 16.8 % (11.5-14.5)
[2021-08-07 13:13] LABS: COVID AG,FIA SOURCE NASOPHARYNGEAL
[2021-08-07 13:27] LABS: ANION GAP 16 mmol/L (8-16); CALCIUM, TOTAL 8.3 mg/dL (8.8-10.5); CARBON DIOXIDE 22 mmol/L (22-29); CHLORIDE 104 mmol/L (98-107); CREATININE 0.81 mg/dL (0.60-1.30); GLOMERULAR FILTR. RATE CALC > 60 mL/min (>60); GLUCOSE,RANDOM 71 mg/dL (70-110); SODIUM SERUM 142 mmol/L (136-145); UREA NITROGEN, BLOOD 17 mg/dL (7-18)
[2021-08-07 13:32] LABS: ALANINE AMINOTRANSFERASE 32 U/L (12-78); ALBUMIN 3.7 g/dL (3.4-5.0); ALKALINE PHOSPHATASE 88 U/L (46-116); ASPARTATE AMINOTRANSFERASE 56 U/L (15-37); BILIRUBIN,TOTAL 0.3 mg/dL (0.1-1.0); TOTAL PROTEIN, SERUM 7.8 g/dL (6.4-8.2)
[2021-08-07 14:16] LABS: AMPHET/METH SCREEN,URINE NEGATIVE (NEGATIVE); BARBITURATE SCREEN, URINE NEGATIVE (NEGATIVE); BENZODIAZEPINES SCREEN,URINE NEGATIVE (NEGATIVE); CANNABINOID SCREEN,URINE NEGATIVE (NEGATIVE); COCAINE SCREEN,URINE NEGATIVE (NEGATIVE); METHADONE SCREEN, URINE NEGATIVE (NEGATIVE); OPIATE SCREEN,URINE NEGATIVE (NEGATIVE)
[2021-08-07 14:28] LABS: PHENCYCLIDINE SCREEN,URINE NEGATIVE (NEGATIVE)
[2021-08-07 15:46] VITALS: BP 115/76
== END 2021-08-07 17:09 | disposition home or self-care (01) ==
LOC: EMS 12:28
DX: U07.1 COVID-19 (principal); F10.129 Alcohol abuse with intoxication, unspecified; R45.851 Suicidal ideations; F31.9 Bipolar disorder, unspecified; K21.9 Gastro-esophageal reflux disease without esophagitis; F20.9 Schizophrenia, unspecified; F17.210 Nicotine dependence, cigarettes, uncomplicated; Z88.8 Allergy status to other drugs, medicaments and biological substances; Y90.8 Blood alcohol level of 240 mg/100 ml or more
CPT/HCPCS: 36415; 80053; 80307; 85025; 87426; 99283; G0480

== ENCOUNTER 2022-01-24 13:46 | Inpatient (IN) | payer MEDICARE, MEDICAID ==
[~2022-01-24] VITALS: Ht 170.2 cm; Wt 75.9 kg
[~2022-01-24 13:46] MED LIST changes: +OMEG-108 PO; -OMEG-135 PO
[2022-01-24] MEDS ORDERED: HALOPERIDOL 5 MG TABLET PO PRN (21:00)
[2022-01-24] MEDS ORDERED: LORazepam 2 MG TABLET PO PRN ×2 (21:00)
[2022-01-24] MEDS ORDERED: CYANOCOBALAMIN 1,000 MCG/ML VIAL IM ONE (23:15)
[2022-01-24] MEDS ORDERED: GuaiFENesin/D-METHORPHAN [SUGAR-FREE] 200-20MG/10 ML SYRUP UDCUP PO PRN (23:15)
[2022-01-24] MEDS: THIAMINE 100 MG TABLET PO SCH (23:15)
[2022-01-24] MEDS ORDERED: LOPERAMIDE HCL 2 MG CAPSULE PO PRN (23:15)
[2022-01-25] VITALS (11 sets, daily range): BP systolic 110–131; BP diastolic 68–87
[2022-01-25] MEDS: LORazepam 2 MG TABLET PO SCH ×4 (08:42→20:17)
[2022-01-25] MEDS: THIAMINE 100 MG TABLET PO SCH ×2 (08:42→16:32)
[2022-01-25] MEDS: MULTIVITAMINS WITH MINERALS, THERAPEUTIC TABLET PO SCH (08:42)
[2022-01-25] MEDS: FOLIC ACID 1 MG TABLET PO SCH (08:42)
[2022-01-25] MEDS: MAG HYDROX/AL HYDROX/SIMETH 30 ML SUSP UDCUP PO PRN ×2 (14:22→20:45)
[2022-01-25] MEDS: DENTURE ADHESIVE 68 GM CREAM DT PRN (16:48)
[2022-01-26 00:30] VITALS: BP 124/78
[2022-01-26 04:39] VITALS: BP 121/87
[2022-01-26] MEDS: LORazepam 2 MG TABLET PO PRN (04:51)
[2022-01-26 07:24] LABS: BASOPHILS % (AUTO) 0.6 % (0.0-2.0); EOSINOPHILS % (AUTO) 5.4 % (1.0-6.0); HEMATOCRIT 34.8 % (41-53); HEMOGLOBIN 11.7 g/dL (13.5-17.5); LYMPHOCYTES # (AUTO) 0.8 K/uL (1.0-4.8); LYMPHOCYTES % (AUTO) 21.4 % (22.0-44.0); MEAN CORPUSCULAR HEMOGLOBIN 30.1 pg (26.0-34.0); MEAN CORPUSCULAR HGB CONC 33.5 G/dL (31.0-37.0); MEAN CORPUSCULAR VOLUME 90 fL (80-100); MONOCYTES # (AUTO) 0.4 K/uL (0.1-1.0); MONOCYTES % (AUTO) 9.8 % (2.0-9.0); NEUTROPHILS # (AUTO) 2.3 K/uL (1.8-7.7); NEUTROPHILS % (AUTO) 62.8 % (40.0-70.0); PLATELET COUNT (AUTO) 187 K/uL (150-450); RED BLOOD CELL COUNT(AUTO) 3.88 MIL/uL (4.50-5.90); RED CELL DISTRIBUTION WIDTH 16.3 % (11.5-14.5)
[2022-01-26 07:44] LABS: ALANINE AMINOTRANSFERASE 42 U/L (12-78); ALBUMIN 2.9 g/dL (3.4-5.0); ALKALINE PHOSPHATASE 69 U/L (46-116); ANION GAP 4 mmol/L (8-16); ASPARTATE AMINOTRANSFERASE 43 U/L (15-37); BILIRUBIN,TOTAL 0.7 mg/dL (0.1-1.0); CALCIUM, TOTAL 8.7 mg/dL (8.8-10.5); CARBON DIOXIDE 28 mmol/L (22-29); CHLORIDE 102 mmol/L (98-107); CHOL/HDL RATIO 1.6 (4.2-7.3); CHOLESTEROL 156 mg/dL (131-200); CREATININE 0.69 mg/dL (0.60-1.30); FREE T4 (FREE THYROXINE) 1.03 ng/dL (0.76-1.46); GLUCOSE,RANDOM 84 mg/dL (70-110); HDL CHOLESTEROL 100 mg/dL (40-60); LDL CHOL (CALC.) 49 mg/dL (0-130); POTASSIUM 3.9 mmol/L (3.5-5.1); SODIUM SERUM 134 mmol/L (136-145); THYROID STIMULATING HORMONE 0.69 uIU/mL (0.36-3.74); TOTAL PROTEIN, SERUM 6.6 g/dL (6.4-8.2); TRIGLYCERIDES 35 mg/dL (15-150); UREA NITROGEN, BLOOD 13 mg/dL (7-18)
[2022-01-26 07:47] LABS: GLOMERULAR FILTR. RATE CALC > 60 mL/min (>60)
[2022-01-26] MEDS: MULTIVITAMINS WITH MINERALS, THERAPEUTIC TABLET PO SCH (08:18)
[2022-01-26] MEDS: THIAMINE 100 MG TABLET PO SCH ×2 (08:19→16:32)
[2022-01-26] MEDS: LORazepam 2 MG TABLET PO SCH ×4 (08:19→20:36)
[2022-01-26] MEDS: FOLIC ACID 1 MG TABLET PO SCH (08:19)
[2022-01-26] MEDS: MAG HYDROX/AL HYDROX/SIMETH 30 ML SUSP UDCUP PO PRN ×2 (08:31→14:12)
[2022-01-26 09:00] VITALS: BP 125/84
[2022-01-26 09:09] VITALS: BP 125/84
[2022-01-26] MEDS: OMEPRAZOLE 20 MG CAPSULE PO SCH (16:32)
[2022-01-26] MEDS: DENTURE ADHESIVE 68 GM CREAM DT PRN (17:21)
[2022-01-26 20:26] VITALS: BP 109/75
[2022-01-26 20:30] VITALS: BP 122/79
[2022-01-26] MEDS: ZOLPIDEM TARTRATE 10 MG TABLET PO PRN (22:59)
[2022-01-27 04:31] VITALS: BP 135/89
[2022-01-27] MEDS: LORazepam 2 MG TABLET PO PRN (04:31)
[2022-01-27] MEDS ORDERED: LORazepam 1 MG TABLET PO PRN (07:00)
[2022-01-27 08:26] VITALS: BP 129/90
[2022-01-27] MEDS: MULTIVITAMINS WITH IRON TABLET PO SCH (08:59)
[2022-01-27] MEDS: THIAMINE 100 MG TABLET PO SCH ×2 (08:59→16:49)
[2022-01-27] MEDS: LORazepam 1 MG TABLET PO SCH ×4 (08:59→20:08)
[2022-01-27] MEDS: OMEPRAZOLE 20 MG CAPSULE PO SCH ×2 (08:59→16:49)
[2022-01-27] MEDS: FOLIC ACID 1 MG TABLET PO SCH (08:59)
[2022-01-27] MEDS ORDERED: CYANOCOBALAMIN 1,000 MCG/ML VIAL SQ ONE (09:00)
[2022-01-27 19:39] VITALS: BP 118/82
[2022-01-27] MEDS: ZOLPIDEM TARTRATE 10 MG TABLET PO PRN (20:07)
[2022-01-27 20:37] VITALS: BP 118/82
[2022-01-28 06:05] VITALS: BP 128/86
[2022-01-28] MEDS ORDERED: LORazepam 1 MG TABLET PO PRN (07:00)
[2022-01-28] MEDS: MULTIVITAMINS WITH IRON TABLET PO SCH (08:05)
[2022-01-28] MEDS: OMEPRAZOLE 20 MG CAPSULE PO SCH ×2 (08:05→16:30)
[2022-01-28] MEDS: THIAMINE 100 MG TABLET PO SCH ×2 (08:05→16:30)
[2022-01-28] MEDS: FOLIC ACID 1 MG TABLET PO SCH (08:06)
[2022-01-28 08:30] VITALS: BP 95/68
[2022-01-28] MEDS: DENTURE ADHESIVE 68 GM CREAM DT PRN (08:43)
[2022-01-28 19:49] VITALS: BP 116/65
[2022-01-28] MEDS: DOCUSATE SODIUM 250 MG CAPSULE PO SCH (19:49)
[2022-01-28] MEDS: QUEtiapine FUMARATE 200 MG TABLET PO SCH (19:49)
[2022-01-28] MEDS: ACETAMINOPHEN 325 MG TABLET PO PRN (19:49)
[2022-01-28 20:19] VITALS: BP 112/73
[2022-01-29] MEDS: DENTURE ADHESIVE 68 GM CREAM DT PRN (08:03)
[2022-01-29] MEDS: THIAMINE 100 MG TABLET PO SCH ×2 (08:03→16:33)
[2022-01-29] MEDS: MULTIVITAMINS WITH IRON TABLET PO SCH (08:03)
[2022-01-29] MEDS: HydrOXYzine PAMOATE 50 MG CAPSULE PO PRN ×2 (08:04→16:33)
[2022-01-29] MEDS: OMEPRAZOLE 20 MG CAPSULE PO SCH ×2 (08:04→16:33)
[2022-01-29] MEDS: FOLIC ACID 1 MG TABLET PO SCH (08:04)
[2022-01-29 08:58] VITALS: BP 109/74
[2022-01-29 16:30] VITALS: BP 119/86
[2022-01-29] MEDS: ACETAMINOPHEN 325 MG TABLET PO PRN ×2 (16:38→22:41)
[2022-01-29] MEDS: DOCUSATE SODIUM 250 MG CAPSULE PO SCH (20:35)
[2022-01-29] MEDS: QUEtiapine FUMARATE 200 MG TABLET PO SCH (20:36)
[2022-01-29 21:30] VITALS: BP 110/70
[2022-01-29] MEDS: ZOLPIDEM TARTRATE 10 MG TABLET PO PRN (22:07)
[2022-01-30 08:18] VITALS: BP 111/76
[2022-01-30] MEDS: PALIPERIDONE 6 MG ER TABLET PO SCH (08:25)
[2022-01-30] MEDS: MULTIVITAMINS WITH IRON TABLET PO SCH (08:25)
[2022-01-30] MEDS: FOLIC ACID 1 MG TABLET PO SCH (08:25)
[2022-01-30] MEDS: THIAMINE 100 MG TABLET PO SCH ×2 (08:25→16:48)
[2022-01-30] MEDS: OMEPRAZOLE 20 MG CAPSULE PO SCH ×2 (08:25→16:48)
[2022-01-30] MEDS: DENTURE ADHESIVE 68 GM CREAM DT PRN (08:35)
[2022-01-30] MEDS: ACETAMINOPHEN 325 MG TABLET PO PRN ×2 (14:17→21:13)
[2022-01-30 20:03] VITALS: BP 107/66
[2022-01-30] MEDS: QUEtiapine FUMARATE 200 MG TABLET PO SCH (20:05)
[2022-01-30] MEDS: DOCUSATE SODIUM 250 MG CAPSULE PO SCH (20:05)
[2022-01-31 06:42] VITALS: BP 134/90
[2022-01-31 08:39] VITALS: BP 108/75
[2022-01-31] MEDS: OMEPRAZOLE 20 MG CAPSULE PO SCH ×2 (08:50→17:16)
[2022-01-31] MEDS: PALIPERIDONE 6 MG ER TABLET PO SCH (08:50)
[2022-01-31] MEDS: FOLIC ACID 1 MG TABLET PO SCH (08:50)
[2022-01-31] MEDS: MULTIVITAMINS WITH IRON TABLET PO SCH (08:50)
[2022-01-31] MEDS: THIAMINE 100 MG TABLET PO SCH ×2 (10:31→16:52)
[2022-01-31 15:15] VITALS: BP 122/88
[2022-01-31] MEDS: ACETAMINOPHEN 325 MG TABLET PO PRN (15:19)
[2022-01-31 20:14] VITALS: BP 114/75
[2022-01-31] MEDS: QUEtiapine FUMARATE 200 MG TABLET PO SCH (20:52)
[2022-01-31] MEDS: DOCUSATE SODIUM 250 MG CAPSULE PO SCH (20:52)
[2022-02-01] MEDS: PALIPERIDONE 6 MG ER TABLET PO SCH (08:17)
[2022-02-01] MEDS: MULTIVITAMINS WITH IRON TABLET PO SCH (08:17)
[2022-02-01] MEDS: OMEPRAZOLE 20 MG CAPSULE PO SCH ×2 (08:17→16:37)
[2022-02-01] MEDS: FOLIC ACID 1 MG TABLET PO SCH (08:17)
[2022-02-01] MEDS: THIAMINE 100 MG TABLET PO SCH ×2 (08:17→16:37)
[2022-02-01 08:44] VITALS: BP 116/77
[2022-02-01] MEDS: ACETAMINOPHEN 325 MG TABLET PO PRN ×2 (09:23→16:37)
[2022-02-01] MEDS: QUEtiapine FUMARATE 200 MG TABLET PO SCH (20:18)
[2022-02-01] MEDS: DOCUSATE SODIUM 250 MG CAPSULE PO SCH (20:18)
[2022-02-01 20:20] VITALS: BP 116/78
[2022-02-01] MEDS: IBUPROFEN 600 MG TABLET PO PRN (20:37)
[2022-02-02] MEDS: THIAMINE 100 MG TABLET PO SCH ×2 (08:06→16:18)
[2022-02-02] MEDS: FOLIC ACID 1 MG TABLET PO SCH (08:07)
[2022-02-02] MEDS: MULTIVITAMINS WITH IRON TABLET PO SCH (08:07)
[2022-02-02] MEDS: OMEPRAZOLE 20 MG CAPSULE PO SCH ×2 (08:07→16:18)
[2022-02-02] MEDS ORDERED: PALIPERIDONE 6 MG ER TABLET PO SCH (09:00)
[2022-02-02 09:37] VITALS: BP 122/86
[2022-02-02] MEDS ORDERED: PALIPERIDONE PALMITATE 234 MG/1.5 ML SYRINGE IM ONE (14:45)
[2022-02-02] MEDS: LevETIRAcetam 500 MG TABLET PO SCH (16:19)
[2022-02-02] MEDS: PHENYTOIN SODIUM 100 MG ER CAPSULE PO SCH (16:30)
[2022-02-02] MEDS: IBUPROFEN 600 MG TABLET PO PRN (18:54)
[2022-02-02 18:56] VITALS: BP 111/71
[2022-02-02] MEDS: DOCUSATE SODIUM 250 MG CAPSULE PO SCH (20:05)
[2022-02-02 20:07] VITALS: BP 117/75
[2022-02-02] MEDS ORDERED: MELATONIN 5 MG TABLET PO SCH (21:00)
[2022-02-02] MEDS ORDERED: QUEtiapine FUMARATE 200 MG TABLET PO SCH (21:00)
[2022-02-03 08:31] VITALS: BP 111/69
[2022-02-03] MEDS: FOLIC ACID 1 MG TABLET PO SCH (08:51)
[2022-02-03] MEDS: LevETIRAcetam 500 MG TABLET PO SCH ×3 (08:51→16:00)
[2022-02-03] MEDS: MULTIVITAMINS WITH IRON TABLET PO SCH (08:51)
[2022-02-03] MEDS: THIAMINE 100 MG TABLET PO SCH (08:51)
[2022-02-03] MEDS: PHENYTOIN SODIUM 100 MG ER CAPSULE PO SCH ×3 (08:52→16:00)
[2022-02-03] MEDS ORDERED: FLUoxetine HCL 10 MG CAPSULE PO SCH (09:00)
[2022-02-03] MEDS ORDERED: OMEGA-3/DHA/EPA/FISH OIL 1,000 MG CAPSULE PO SCH (09:00)
[2022-02-03] MEDS ORDERED: NALTREXONE HCL 50 MG TABLET PO SCH (09:00)
[2022-02-03] MEDS: OMEPRAZOLE 20 MG CAPSULE PO SCH ×2 (09:06→15:55)
[2022-02-03] MEDS: IBUPROFEN 600 MG TABLET PO PRN (13:11)
[2022-02-03] MEDS ORDERED: QUET200T30 PO ×3 (14:28→16:14)
[2022-02-03] MEDS ORDERED: NALT50TA PO ×3 (14:28→16:14)
[2022-02-03] MEDS ORDERED: MELA5TAB40 PO ×3 (14:28→16:14)
[2022-02-03] MEDS ORDERED: PROZ10 PO ×3 (14:28→16:14)
[2022-02-03] MEDS ORDERED: OMEG-108 PO ×3 (14:28→16:14)
[2022-02-03] MEDS ORDERED: LEVE500T8 PO ×3 (14:28→16:14)
[2022-02-03] MEDS ORDERED: PHENY100 PO ×3 (14:28→16:14)
[2022-02-06] MEDS ORDERED: PALIPERIDONE PALMITATE 156 MG/ML SYRINGE IM ONE (09:00)
== END 2022-02-03 15:55 | disposition home or self-care (01) | DRG 885 ==
LOC: B2S 23:30 → B2X 01-25 09:44
PROVIDERS: ADMIT Psychiatry & Neurology Psychiatry; ATTEND Psychiatry & Neurology Psychiatry
DX: F25.9 Schizoaffective disorder, unspecified (principal); F10.239 Alcohol dependence with withdrawal, unspecified; R45.851 Suicidal ideations; F41.9 Anxiety disorder, unspecified; I48.91 Unspecified atrial fibrillation; J44.9 Chronic obstructive pulmonary disease, unspecified; N40.0 Benign prostatic hyperplasia without lower urinary tract symptoms; Z55.9 Problems related to education and literacy, unspecified; Z59.9 Problem related to housing and economic circumstances, unspecified; Z63.9 Problem related to primary support group, unspecified; Z65.3 Problems related to other legal circumstances; Z79.899 Other long term (current) drug therapy; Z91.14 Patient's other noncompliance with medication regimen; Z91.19 Patient's noncompliance with other medical treatment and regimen; Z63.8 Other specified problems related to primary support group; Z56.0 Unemployment, unspecified; Z88.8 Allergy status to other drugs, medicaments and biological substances
CPT/HCPCS: 80053; 80061; 80185; 83036; 84439; 84443; 85025; G0482; J3420; Q9967

== ENCOUNTER 2022-01-24 14:47 | Emergency (ER) | payer MEDICARE, MEDICAID ==
[~2022-01-24] VITALS: Ht 170.2 cm; Wt 72.7 kg
[2022-01-24] MEDS ORDERED: LORazepam 1 MG TABLET PO ONE (15:30)
[2022-01-24] MEDS ORDERED: LevETIRAcetam 500 MG TABLET PO ONE ×2 (15:30→18:45)
[2022-01-24 15:51] LABS: COVID AG,FIA SOURCE NASOPHARYNGEAL
[2022-01-24 16:01] LABS: AMPHET/METH SCREEN,URINE NEGATIVE (NEGATIVE); BARBITURATE SCREEN, URINE NEGATIVE (NEGATIVE); BENZODIAZEPINES SCREEN,URINE NEGATIVE (NEGATIVE); CANNABINOID SCREEN,URINE NEGATIVE (NEGATIVE); COCAINE SCREEN,URINE NEGATIVE (NEGATIVE); METHADONE SCREEN, URINE NEGATIVE (NEGATIVE); OPIATE SCREEN,URINE NEGATIVE (NEGATIVE)
[2022-01-24 16:02] LABS: PHENCYCLIDINE SCREEN,URINE NEGATIVE (NEGATIVE)
[2022-01-24 16:05] LABS: BASOPHILS % (AUTO) 1.4 % (0.0-2.0); EOSINOPHILS % (AUTO) 2.2 % (1.0-6.0); HEMATOCRIT 38.3 % (41-53); HEMOGLOBIN 12.5 g/dL (13.5-17.5); LYMPHOCYTES # (AUTO) 1.2 K/uL (1.0-4.8); LYMPHOCYTES % (AUTO) 30.6 % (22.0-44.0); MEAN CORPUSCULAR HEMOGLOBIN 29.7 pg (26.0-34.0); MEAN CORPUSCULAR HGB CONC 32.7 G/dL (31.0-37.0); MEAN CORPUSCULAR VOLUME 91 fL (80-100); MONOCYTES # (AUTO) 0.3 K/uL (0.1-1.0); MONOCYTES % (AUTO) 7.6 % (2.0-9.0); NEUTROPHILS # (AUTO) 2.2 K/uL (1.8-7.7); NEUTROPHILS % (AUTO) 58.2 % (40.0-70.0); PLATELET COUNT (AUTO) 237 K/uL (150-450); RED BLOOD CELL COUNT(AUTO) 4.22 MIL/uL (4.50-5.90); RED CELL DISTRIBUTION WIDTH 16.8 % (11.5-14.5)
[2022-01-24 16:10] LABS: ANION GAP 7 mmol/L (8-16); CALCIUM, TOTAL 8.7 mg/dL (8.8-10.5); CARBON DIOXIDE 29 mmol/L (22-29); CHLORIDE 106 mmol/L (98-107); CREATININE 0.79 mg/dL (0.60-1.30); GLUCOSE,RANDOM 99 mg/dL (70-110); POTASSIUM 3.4 mmol/L (3.5-5.1); SODIUM SERUM 142 mmol/L (136-145); UREA NITROGEN, BLOOD 16 mg/dL (7-18)
[2022-01-24 16:15] LABS: GLOMERULAR FILTR. RATE CALC > 60 mL/min (>60)
[2022-01-24 16:16] LABS: ALANINE AMINOTRANSFERASE 52 U/L (12-78); ALBUMIN 3.2 g/dL (3.4-5.0); ALKALINE PHOSPHATASE 75 U/L (46-116); ASPARTATE AMINOTRANSFERASE 71 U/L (15-37); BILIRUBIN,TOTAL 0.3 mg/dL (0.1-1.0); TOTAL PROTEIN, SERUM 7.7 g/dL (6.4-8.2)
[2022-01-24] MEDS ORDERED: LORazepam 2 MG TABLET PO ONE (18:45)
[2022-01-24 22:21] VITALS: BP 110/74
== END 2022-01-24 23:11 | disposition home or self-care (01) ==
LOC: EMS 14:49
DX: F32.9 Major depressive disorder, single episode, unspecified (principal); F10.129 Alcohol abuse with intoxication, unspecified; K70.30 Alcoholic cirrhosis of liver without ascites; F20.9 Schizophrenia, unspecified; I85.00 Esophageal varices without bleeding; F17.210 Nicotine dependence, cigarettes, uncomplicated; Z87.898 Personal history of other specified conditions; Z86.11 Personal history of tuberculosis; Z86.69 Personal history of other diseases of the nervous system and sense organs; Z98.890 Other specified postprocedural states; Z88.8 Allergy status to other drugs, medicaments and biological substances; Z20.822 Contact with and (suspected) exposure to COVID-19
CPT/HCPCS: 99285; 87426; 80053; 85025; 36415; 80307; G0480

== ENCOUNTER 2022-10-25 17:31 | Emergency (ER) | payer MEDICARE, OTHER ==
[~2022-10-25] VITALS: Ht 170.2 cm; Wt 74.0 kg
[~2022-10-25 17:31] MED LIST changes: -DIPH50 PO; -GABA-1181 PO; -LEVE500T20 PO; +LEVE500T8 PO; +MELA5TAB40 PO; -OMEG-108 PO; +OMEG-135 PO; -PANT-31 PO; +PHEN100C10 PO; -PHENY100 PO; +PROZ10 PO
[2022-10-25] MEDS ORDERED: OMEPRAZOLE 20 MG CAPSULE PO ONE (17:45)
[2022-10-25] MEDS ORDERED: ONDANSETRON HCL 4 MG/2 ML VIAL IVP ONE (17:45)
[2022-10-25] MEDS ORDERED: KETOROLAC TROMETHAMINE 30 MG/ML VIAL IVP ONE (17:45)
[2022-10-25 17:54] LABS: BASOPHILS % (AUTO) 1.4 % (0.0-2.0); EOSINOPHILS % (AUTO) 6.9 % (1.0-6.0); HEMATOCRIT 42.1 % (41-53); HEMOGLOBIN 13.9 g/dL (13.5-17.5); LYMPHOCYTES # (AUTO) 2.2 K/uL (1.0-4.8); LYMPHOCYTES % (AUTO) 56.8 % (22.0-44.0); MEAN CORPUSCULAR HEMOGLOBIN 28.7 pg (26.0-34.0); MEAN CORPUSCULAR HGB CONC 32.9 G/dL (31.0-37.0); MEAN CORPUSCULAR VOLUME 87 fL (80-100); MONOCYTES # (AUTO) 0.2 K/uL (0.1-1.0); MONOCYTES % (AUTO) 5.1 % (2.0-9.0); NEUTROPHILS # (AUTO) 1.2 K/uL (1.8-7.7); NEUTROPHILS % (AUTO) 29.8 % (40.0-70.0); PLATELET COUNT (AUTO) 297 K/uL (150-450); RED BLOOD CELL COUNT(AUTO) 4.84 MIL/uL (4.50-5.90); RED CELL DISTRIBUTION WIDTH 16.9 % (11.5-14.5)
[2022-10-25 18:03] LABS: ANION GAP 6 mmol/L (8-16); CALCIUM, TOTAL 8.5 mg/dL (8.8-10.5); CARBON DIOXIDE 29 mmol/L (22-29); CHLORIDE 107 mmol/L (98-107); CREATININE 0.76 mg/dL (0.60-1.30); GLOMERULAR FILTR. RATE CALC > 60 mL/min (>60); GLUCOSE,RANDOM 86 mg/dL (70-110); POTASSIUM 4.1 mmol/L (3.5-5.1); SODIUM SERUM 142 mmol/L (136-145); UREA NITROGEN, BLOOD 10 mg/dL (7-18)
[2022-10-25 18:09] LABS: ALANINE AMINOTRANSFERASE 29 U/L (12-78); ALBUMIN 3.7 g/dL (3.4-5.0); ALKALINE PHOSPHATASE 62 U/L (46-116); ASPARTATE AMINOTRANSFERASE 36 U/L (15-37); BILIRUBIN,TOTAL 0.4 mg/dL (0.1-1.0); LIPASE 122 U/L (73-393); TOTAL PROTEIN, SERUM 7.3 g/dL (6.4-8.2)
[2022-10-25 19:30] VITALS: BP 122/60
[2022-10-25] MEDS ORDERED: MAG HYDROX/AL HYDROX/SIMETH ES 30 ML SUSPENSION UDCUP PO ONE (19:45)
[2022-10-25] MEDS ORDERED: ACET-66 PO (20:13)
[2022-10-25] MEDS ORDERED: OMEP20 PO (20:13)
[2022-10-25] MEDS ORDERED: MAG30ORA11 PO (20:13)
== END 2022-10-25 22:36 | disposition home or self-care (01) ==
LOC: EMS 17:35
DX: K29.20 Alcoholic gastritis without bleeding (principal); F10.129 Alcohol abuse with intoxication, unspecified; R07.89 Other chest pain; F31.9 Bipolar disorder, unspecified; K21.9 Gastro-esophageal reflux disease without esophagitis; F25.9 Schizoaffective disorder, unspecified; F17.210 Nicotine dependence, cigarettes, uncomplicated; Z88.8 Allergy status to other drugs, medicaments and biological substances; Y90.8 Blood alcohol level of 240 mg/100 ml or more
CPT/HCPCS: 99285; 96374; 71045; 96375; 80053; 83690; 84484; 85025; 36415; 93005; G0480; J1885; J2405

== ENCOUNTER 2022-11-05 01:30 | Inpatient (IN) | payer MEDICARE, OTHER ==
[~2022-11-05] VITALS: Ht 170.2 cm; Wt 77.0 kg
[2022-11-05] VITALS (7 sets, daily range): BP systolic 113–130; BP diastolic 69–79
[~2022-11-05 01:30] MED LIST changes: +ACET-66 PO; -FLUO10CA24 PO; +MAG30ORA11 PO; +OMEP20 PO
[2022-11-05] MEDS ORDERED: MAG HYDROX/AL HYDROX/SIMETH 30 ML SUSP UDCUP PO ONE (02:00)
[2022-11-05] MEDS ORDERED: ONDANSETRON HCL 4 MG/2 ML VIAL IVP ONE (02:00)
[2022-11-05] MEDS ORDERED: MORPHINE SULFATE 2 MG/ML SYRINGE IVP ONE (02:00)
[2022-11-05] MEDS ORDERED: SODIUM CHLORIDE 0.9% 1,000 ML IV ONE ×2 (02:00→08:00)
[2022-11-05] MEDS ORDERED: FAMOTIDINE 10 MG/ML 2 ML VIAL IVP ONE (02:00)
[2022-11-05] MEDS ORDERED: SODIUM CHLORIDE 0.9% 100 ML ONE (02:01)
[2022-11-05] MEDS ORDERED: IOHEXOL 350 MG/ML 100 ML VIAL ONE (02:01)
[2022-11-05 02:20] LABS: COVID AG,FIA SOURCE NASOPHARYNGEAL
[2022-11-05 02:22] LABS: BASOPHILS % (AUTO) 0.7 % (0.0-2.0); EOSINOPHILS % (AUTO) 6.3 % (1.0-6.0); HEMATOCRIT 37.1 % (41-53); HEMOGLOBIN 12.5 g/dL (13.5-17.5); LYMPHOCYTES # (AUTO) 1.9 K/uL (1.0-4.8); LYMPHOCYTES % (AUTO) 48.4 % (22.0-44.0); MEAN CORPUSCULAR HEMOGLOBIN 29.2 pg (26.0-34.0); MEAN CORPUSCULAR HGB CONC 33.7 G/dL (31.0-37.0); MEAN CORPUSCULAR VOLUME 87 fL (80-100); MONOCYTES # (AUTO) 0.3 K/uL (0.1-1.0); NEUTROPHILS # (AUTO) 1.4 K/uL (1.8-7.7); NEUTROPHILS % (AUTO) 35.6 % (40.0-70.0); PLATELET COUNT (AUTO) 150 K/uL (150-450); RED BLOOD CELL COUNT(AUTO) 4.28 MIL/uL (4.50-5.90); RED CELL DISTRIBUTION WIDTH 16.8 % (11.5-14.5)
[2022-11-05 02:33] LABS: ANION GAP 14 mmol/L (8-16); CARBON DIOXIDE 24 mmol/L (22-29); CHLORIDE 103 mmol/L (98-107); CREATININE 0.85 mg/dL (0.60-1.30); GLOMERULAR FILTR. RATE CALC > 60 mL/min (>60); GLUCOSE,RANDOM 80 mg/dL (70-110); POTASSIUM 3.6 mmol/L (3.5-5.1); SODIUM SERUM 141 mmol/L (136-145); UREA NITROGEN, BLOOD 11 mg/dL (7-18)
[2022-11-05 02:39] LABS: ALANINE AMINOTRANSFERASE 45 U/L (12-78); ALBUMIN 3.9 g/dL (3.4-5.0); ALKALINE PHOSPHATASE 60 U/L (46-116); ASPARTATE AMINOTRANSFERASE 48 U/L (15-37); BILIRUBIN,TOTAL 0.4 mg/dL (0.1-1.0); LIPASE 141 U/L (73-393); PHOSPHORUS 3.2 mg/dL (2.5-4.9); TOTAL PROTEIN, SERUM 7.5 g/dL (6.4-8.2)
[2022-11-05] MEDS ORDERED: MAGNESIUM SULFATE 1 GM in DEXTROSE 5%-WATER 50 ML IV ONE (03:00)
[2022-11-05 03:25] LABS: APPEARANCE,URINE CLEAR (CLEAR); BILIRUBIN,URINE NEGATIVE (NEGATIVE); GLUCOSE, URINE (UA) NEGATIVE (NEGATIVE); LEUKOCYTE ESTERASE ,URINE NEGATIVE (NEGATIVE); NITRATE,URINE NEGATIVE (NEGATIVE); OCCULT BLOOD,URINE NEGATIVE (NEGATIVE); PH,URINE 6.5 (5.0-8.0); PROTEIN,URINE 30-70 mg/dL (NEGATIVE); SPECIFIC GRAVITIY, URINE 1.028 (1.003-1.030)
[2022-11-05 03:31] LABS: AMPHET/METH SCREEN,URINE NEGATIVE (NEGATIVE); BARBITURATE SCREEN, URINE NEGATIVE (NEGATIVE); BENZODIAZEPINES SCREEN,URINE NEGATIVE (NEGATIVE); CANNABINOID SCREEN,URINE NEGATIVE (NEGATIVE); COCAINE SCREEN,URINE NEGATIVE (NEGATIVE); METHADONE SCREEN, URINE NEGATIVE (NEGATIVE); OPIATE SCREEN,URINE POSITIVE (NEGATIVE); PHENCYCLIDINE SCREEN,URINE NEGATIVE (NEGATIVE)
[2022-11-05] MEDS ORDERED: ONDANSETRON HCL 4 MG/2 ML VIAL IVP PRN ×2 (05:00→08:00)
[2022-11-05] MEDS ORDERED: 0.9% SODIUM CHLORIDE 10 ML SYRINGE IVP PRN (05:00)
[2022-11-05] MEDS ORDERED: ACETAMINOPHEN 325 MG TABLET PO PRN (05:00)
[2022-11-05] MEDS ORDERED: LORazepam 2 MG/ML VIAL IVP ONE (05:45)
[2022-11-05] MEDS ORDERED: LORazepam 2 MG/ML VIAL IVP PRN (08:00)
[2022-11-05] MEDS ORDERED: MAGNESIUM HYDROXIDE SUSPENSION 30 ML UDCUP PO PRN (08:00)
[2022-11-05] MEDS ORDERED: ALBUTEROL SULFATE 2.5 MG/0.5 ML NEB SOLUTION NEB PRN (08:00)
[2022-11-05] MEDS ORDERED: LevETIRAcetam 500 MG TABLET PO SCH (09:00)
[2022-11-05] MEDS: HEPARIN SODIUM,PORCINE 5,000 UNITS/ML VIAL SQ SCH ×3 (09:31→23:24)
[2022-11-05] MEDS: FAMOTIDINE 20 MG TABLET PO SCH (09:31)
[2022-11-05] MEDS: MULTIVITAMINS WITH MINERALS, THERAPEUTIC TABLET PO SCH (09:32)
[2022-11-05] MEDS ORDERED: QUEtiapine FUMARATE 25 MG TABLET PO PRN (15:00)
[2022-11-05] MEDS ORDERED: PALIPERIDONE PALMITATE 234 MG/1.5 ML SYRINGE IM ONE (15:00)
[2022-11-05] MEDS: ACAMPROSATE CALCIUM 333 MG DR TABLET PO SCH ×2 (16:12→20:44)
[2022-11-05] MEDS: LevETIRAcetam 500 MG TABLET PO SCH ×2 (16:12→20:44)
[2022-11-05] MEDS ORDERED: DENTURE ADHESIVE 68 GM CREAM DT PRN (18:00)
[2022-11-05] MEDS: QUEtiapine FUMARATE 25 MG TABLET PO SCH (20:44)
[2022-11-05] MEDS: ZOLPIDEM TARTRATE 5 MG TABLET PO PRN (20:44)
[2022-11-06 05:38] VITALS: BP 128/77
[2022-11-06 07:19] LABS: EOSINOPHILS % (AUTO) 7.2 % (1.0-6.0); HEMATOCRIT 35.2 % (41-53); HEMOGLOBIN 11.8 g/dL (13.5-17.5); LYMPHOCYTES # (AUTO) 0.9 K/uL (1.0-4.8); LYMPHOCYTES % (AUTO) 30.2 % (22.0-44.0); MEAN CORPUSCULAR HEMOGLOBIN 29.5 pg (26.0-34.0); MEAN CORPUSCULAR HGB CONC 33.6 G/dL (31.0-37.0); MEAN CORPUSCULAR VOLUME 88 fL (80-100); MONOCYTES # (AUTO) 0.3 K/uL (0.1-1.0); MONOCYTES % (AUTO) 10.6 % (2.0-9.0); NEUTROPHILS # (AUTO) 1.6 K/uL (1.8-7.7); PLATELET COUNT (AUTO) 123 K/uL (150-450); RED BLOOD CELL COUNT(AUTO) 4.01 MIL/uL (4.50-5.90); RED CELL DISTRIBUTION WIDTH 16.7 % (11.5-14.5)
[2022-11-06 07:50] LABS: ALANINE AMINOTRANSFERASE 42 U/L (12-78); ALBUMIN 3.2 g/dL (3.4-5.0); ALKALINE PHOSPHATASE 50 U/L (46-116); ANION GAP 9 mmol/L (8-16); ASPARTATE AMINOTRANSFERASE 48 U/L (15-37); BILIRUBIN,TOTAL 0.7 mg/dL (0.1-1.0); CARBON DIOXIDE 26 mmol/L (22-29); CHLORIDE 107 mmol/L (98-107); CREATININE 0.76 mg/dL (0.60-1.30); GLOMERULAR FILTR. RATE CALC > 60 mL/min (>60); GLUCOSE,RANDOM 96 mg/dL (70-110); POTASSIUM 4.2 mmol/L (3.5-5.1); SODIUM SERUM 142 mmol/L (136-145); TOTAL PROTEIN, SERUM 6.6 g/dL (6.4-8.2); UREA NITROGEN, BLOOD 15 mg/dL (7-18)
[2022-11-06 07:53] VITALS: BP 141/76
[2022-11-06] MEDS: MULTIVITAMINS WITH MINERALS, THERAPEUTIC TABLET PO SCH (08:51)
[2022-11-06] MEDS: HEPARIN SODIUM,PORCINE 5,000 UNITS/ML VIAL SQ SCH ×3 (08:51→23:17)
[2022-11-06] MEDS: FLUoxetine HCL 10 MG CAPSULE PO SCH (08:51)
[2022-11-06] MEDS: FAMOTIDINE 20 MG TABLET PO SCH (08:51)
[2022-11-06] MEDS: ACAMPROSATE CALCIUM 333 MG DR TABLET PO SCH ×3 (08:51→20:46)
[2022-11-06] MEDS: LevETIRAcetam 500 MG TABLET PO SCH ×3 (08:51→20:45)
[2022-11-06 15:30] VITALS: BP 115/68
[2022-11-06] MEDS: ACETAMINOPHEN 325 MG TABLET PO PRN (17:12)
[2022-11-06 20:00] VITALS: BP 117/70
[2022-11-06] MEDS: ZOLPIDEM TARTRATE 5 MG TABLET PO PRN (20:45)
[2022-11-06] MEDS: QUEtiapine FUMARATE 25 MG TABLET PO SCH (20:46)
[2022-11-07 05:00] VITALS: BP 100/66
[2022-11-07 07:45] VITALS: BP 119/68
[2022-11-07] MEDS: HEPARIN SODIUM,PORCINE 5,000 UNITS/ML VIAL SQ SCH ×3 (08:06→23:55)
[2022-11-07] MEDS: FAMOTIDINE 20 MG TABLET PO SCH (08:07)
[2022-11-07] MEDS: FLUoxetine HCL 10 MG CAPSULE PO SCH (08:07)
[2022-11-07] MEDS: ACETAMINOPHEN 325 MG TABLET PO PRN ×2 (08:07→18:53)
[2022-11-07] MEDS: LevETIRAcetam 500 MG TABLET PO SCH ×3 (08:08→20:17)
[2022-11-07] MEDS: ACAMPROSATE CALCIUM 333 MG DR TABLET PO SCH ×3 (08:08→20:17)
[2022-11-07] MEDS: MULTIVITAMINS WITH MINERALS, THERAPEUTIC TABLET PO SCH (08:08)
[2022-11-07 16:00] VITALS: BP 132/78
[2022-11-07 19:25] VITALS: BP 105/68
[2022-11-07] MEDS: QUEtiapine FUMARATE 25 MG TABLET PO SCH (20:18)
[2022-11-08] MEDS: ZOLPIDEM TARTRATE 5 MG TABLET PO PRN (00:15)
[2022-11-08 05:45] VITALS: BP 106/74
[2022-11-08 07:30] VITALS: BP 110/76
[2022-11-08] MEDS: FAMOTIDINE 20 MG TABLET PO SCH (08:38)
[2022-11-08] MEDS: LevETIRAcetam 500 MG TABLET PO SCH (08:38)
[2022-11-08] MEDS: HEPARIN SODIUM,PORCINE 5,000 UNITS/ML VIAL SQ SCH (08:38)
[2022-11-08] MEDS: ACAMPROSATE CALCIUM 333 MG DR TABLET PO SCH (08:38)
[2022-11-08] MEDS: MULTIVITAMINS WITH MINERALS, THERAPEUTIC TABLET PO SCH (08:38)
[2022-11-08] MEDS: FLUoxetine HCL 10 MG CAPSULE PO SCH (08:38)
[2022-11-08] MEDS: ACETAMINOPHEN 325 MG TABLET PO PRN (08:44)
[2022-11-09] MEDS ORDERED: PALIPERIDONE PALMITATE 156 MG/ML SYRINGE IM ONE (09:00)
== END 2022-11-08 14:20 | disposition home or self-care (01) | DRG 178 ==
LOC: EMS 01:33 → 6N 05:00
PROVIDERS: ADMIT Internal Medicine; ATTEND Internal Medicine
DX: U07.1 COVID-19 (principal); R45.851 Suicidal ideations; F25.9 Schizoaffective disorder, unspecified; G40.909 Epilepsy, unspecified, not intractable, without status epilepticus; E83.42 Hypomagnesemia; I48.91 Unspecified atrial fibrillation; K44.9 Diaphragmatic hernia without obstruction or gangrene; J44.9 Chronic obstructive pulmonary disease, unspecified; K21.9 Gastro-esophageal reflux disease without esophagitis; F10.20 Alcohol dependence, uncomplicated; F99 Mental disorder, not otherwise specified; F41.9 Anxiety disorder, unspecified; Z79.899 Other long term (current) drug therapy; J45.909 Unspecified asthma, uncomplicated; Z88.8 Allergy status to other drugs, medicaments and biological substances
CPT/HCPCS: 74177; 80053; 80307; 81003; 83690; 83735; 84100; 84484; 85025; 93005; 99285; G0480; J1644; J2060; J2270; J2405; J3475; J3490; J7030; J7050; J7060; Q9967

== ENCOUNTER 2023-09-15 13:23 | Emergency (ER) | payer MEDICARE, OTHER ==
[~2023-09-15] VITALS: Ht 170.2 cm; Wt 81.8 kg
[~2023-09-15 13:23] MED LIST changes: +ACAM333T7 PO; -ACET-66 PO; +DIVA500T69 PO; +GABA-1181 PO; -MAG30ORA11 PO; +PALI156D IM; -PHEN100C10 PO; -PROZ10 PO; -QUET200T30 PO; +TOPI25 PO
[2023-09-15 13:45] VITALS: TEMP 97.5
[2023-09-15 14:09] LABS: EOSINOPHILS % (AUTO) 1.1 % (1.0-6.0); HEMATOCRIT 37.1 % (41-53); HEMOGLOBIN 12.5 g/dL (13.5-17.5); LYMPHOCYTES # (AUTO) 2.3 K/uL (1.0-4.8); LYMPHOCYTES % (AUTO) 37.2 % (22.0-44.0); MEAN CORPUSCULAR HEMOGLOBIN 28.4 pg (26.0-34.0); MEAN CORPUSCULAR HGB CONC 33.7 G/dL (31.0-37.0); MEAN CORPUSCULAR VOLUME 84 fL (80-100); MONOCYTES # (AUTO) 0.4 K/uL (0.1-1.0); MONOCYTES % (AUTO) 6.7 % (2.0-9.0); NEUTROPHILS # (AUTO) 3.3 K/uL (1.8-7.7); PLATELET COUNT (AUTO) 298 K/uL (150-450); RED BLOOD CELL COUNT(AUTO) 4.41 MIL/uL (4.50-5.90); RED CELL DISTRIBUTION WIDTH 14.2 % (11.5-14.5); WHITE BLOOD COUNT (AUTO) 6.1 K/uL (4.5-11.0)
[2023-09-15 14:17] LABS: ANION GAP 9 mmol/L (8-16); CALCIUM, TOTAL 8.4 mg/dL (8.8-10.5); CARBON DIOXIDE 29 mmol/L (22-29); CHLORIDE 106 mmol/L (98-107); CREATININE 0.89 mg/dL (0.60-1.30); GLOMERULAR FILTR. RATE CALC > 60 mL/min (>60); GLUCOSE,RANDOM 84 mg/dL (70-110); POTASSIUM 3.7 mmol/L (3.5-5.1); SODIUM SERUM 144 mmol/L (136-145); UREA NITROGEN, BLOOD 14 mg/dL (7-18)
[2023-09-15 14:23] LABS: ALANINE AMINOTRANSFERASE 19 U/L (12-78); ALBUMIN 3.5 g/dL (3.4-5.0); ALKALINE PHOSPHATASE 70 U/L (46-116); ASPARTATE AMINOTRANSFERASE 23 U/L (15-37); BILIRUBIN,TOTAL 0.3 mg/dL (0.1-1.0)
[2023-09-15 14:34] LABS: ALCOHOL, BLOOD (SERUM) 354 mg/dL (0-10)
[2023-09-15] MEDS: LORazepam 2 MG/ML VIAL IVP ONE (14:47)
[2023-09-15] MEDS: SODIUM CHLORIDE 0.9% 1,000 ML IV ONE (14:47)
[2023-09-15 14:51] VITALS: BP 103/60; PULSE 97; RESP 20
== END 2023-09-15 17:54 | disposition home or self-care (01) ==
LOC: EMS 13:25
DX: F10.239 Alcohol dependence with withdrawal, unspecified (principal); F41.9 Anxiety disorder, unspecified; F31.9 Bipolar disorder, unspecified; J44.9 Chronic obstructive pulmonary disease, unspecified; F20.9 Schizophrenia, unspecified; F17.210 Nicotine dependence, cigarettes, uncomplicated; F12.90 Cannabis use, unspecified, uncomplicated; F15.90 Other stimulant use, unspecified, uncomplicated; Z98.890 Other specified postprocedural states; Z88.8 Allergy status to other drugs, medicaments and biological substances
CPT/HCPCS: 99283; 96374; 96361; 80053; 85025; 36415; 93005; G0480; J2060; J7030

== ENCOUNTER 2024-03-14 15:25 | Emergency (ER) | payer MEDICARE, OTHER ==
[~2024-03-14] VITALS: Ht 170.2 cm; Wt 82.0 kg
[~2024-03-14 15:25] MED LIST changes: -NALT50TA PO; +NALT50TA6 PO
[2024-03-14 15:41] VITALS: BP 104/69; PULSE 104; RESP 16; TEMP 98.6; O2SAT 96
== END 2024-03-14 19:10 | disposition left against medical advice (07) ==
LOC: EMS 15:25
DX: M79.651 Pain in right thigh (principal); Z53.21 Procedure and treatment not carried out due to patient leaving prior to being seen by health care provider

== ENCOUNTER 2024-10-09 11:32 | Inpatient (IN) | payer MEDICARE, OTHER ==
[~2024-10-09] VITALS: Ht 170.2 cm; Wt 86.4 kg
[~2024-10-09 11:32] MED LIST changes: +OMEP-148 PO; -OMEP20 PO; +TOPI-257 PO; -TOPI25 PO
[2024-10-09 12:44] LABS: BASOPHILS % (AUTO) 2.3 % (0.0-2.0); EOSINOPHILS % (AUTO) 8.2 % (1.0-6.0); HEMATOCRIT 31.1 % (41-53); HEMOGLOBIN 9.8 g/dL (13.5-17.5); LYMPHOCYTES # (AUTO) 1.7 K/uL (1.0-4.8); LYMPHOCYTES % (AUTO) 30.2 % (22.0-44.0); MEAN CORPUSCULAR HEMOGLOBIN 24.7 pg (26.0-34.0); MEAN CORPUSCULAR HGB CONC 31.6 G/dL (31.0-37.0); MEAN CORPUSCULAR VOLUME 78 fL (80-100); MONOCYTES # (AUTO) 0.4 K/uL (0.1-1.0); MONOCYTES % (AUTO) 6.8 % (2.0-9.0); NEUTROPHILS % (AUTO) 52.5 % (40.0-70.0); PLATELET COUNT (AUTO) 334 K/uL (150-450); RED BLOOD CELL COUNT(AUTO) 3.98 MIL/uL (4.50-5.90); RED CELL DISTRIBUTION WIDTH 19.7 % (11.5-14.5); WHITE BLOOD COUNT (AUTO) 5.8 K/uL (4.5-11.0)
[2024-10-09 12:49] LABS: ANION GAP 7 mmol/L (8-16); CARBON DIOXIDE 26 mmol/L (22-29); CHLORIDE 104 mmol/L (98-107); CREATININE 0.78 mg/dL (0.60-1.30); GLOMERULAR FILTR. RATE CALC > 60 mL/min (>60); GLUCOSE,RANDOM 89 mg/dL (70-110); POTASSIUM 4.5 mmol/L (3.5-5.1); SODIUM SERUM 137 mmol/L (136-145); UREA NITROGEN, BLOOD 9 mg/dL (7-18)
[2024-10-09 13:00] LABS: CREATINE KINASE, TOTAL ONLY 76 U/L (39-308); TROPONIN I-HIGH SENSITIVITY Less Than 4 ng/L (<76)
[2024-10-09 13:31] LABS: B-TYPE NATRIURETIC PEPTIDE 29 pg/mL (0-100)
[2024-10-09] MEDS ORDERED: MAGNESIUM HYDROXIDE SUSPENSION 30 ML UDCUP PO PRN (15:15)
[2024-10-09] MEDS ORDERED: ONDANSETRON HCL 4 MG/2 ML VIAL IVP PRN (15:15)
[2024-10-09] MEDS ORDERED: BISACODYL 10 MG RECTAL RECTAL SUPPOSITORY PR PRN (15:15)
[2024-10-09] MEDS ORDERED: ZOLPIDEM TARTRATE 5 MG TABLET PO PRN (15:15)
[2024-10-09] MEDS ORDERED: VANCOMYCIN 1GM/WATER(PEG/NADA) 200 ML IV SCH (16:00)
[2024-10-09 16:24] LABS: APPEARANCE,URINE CLEAR (CLEAR); BILIRUBIN,URINE NEGATIVE (NEGATIVE); COLOR,URINE LIGHT YELLOW (YELLOW); GLUCOSE, URINE (UA) NEGATIVE (NEGATIVE); KETONES,URINE NEGATIVE (NEGATIVE); LEUKOCYTE ESTERASE ,URINE NEGATIVE (NEGATIVE); NITRATE,URINE NEGATIVE (NEGATIVE); OCCULT BLOOD,URINE NEGATIVE (NEGATIVE); PH,URINE 7.5 (5.0-8.0); PROTEIN,URINE NEGATIVE (NEGATIVE); SPECIFIC GRAVITIY, URINE 1.006 (1.003-1.030); UROBILINOGEN,URINE <=1.0 mg/dL (<=1.0)
[2024-10-09] MEDS: HEPARIN SODIUM,PORCINE 5,000 UNITS/ML VIAL SQ SCH (16:59)
[2024-10-09] MEDS: VANCOMYCIN HCL 1 GM/D5% WATER 200 ML IV SCH (16:59)
[2024-10-09 18:15] VITALS: BP 126/70; PULSE 83; RESP 18; TEMP 98; O2SAT 98
[2024-10-09] MEDS: MORPHINE SULFATE 2 MG/ML SYRINGE IVP PRN (19:38)
[2024-10-09 19:39] VITALS: BP 105/62; PULSE 79; RESP 18; TEMP 98.3; O2SAT 98
[2024-10-09] MEDS ORDERED: SODIUM CHLORIDE 0.9% 250 ML IV ONE (20:05)
[2024-10-09] MEDS: TOPIRAMATE 25 MG TABLET PO SCH (20:37)
[2024-10-09] MEDS: ACAMPROSATE CALCIUM 333 MG DR TABLET PO SCH (20:37)
[2024-10-09] MEDS: MELATONIN 5 MG TABLET PO SCH (20:38)
[2024-10-09] MEDS: DOCUSATE SODIUM 100 MG CAPSULE PO SCH (20:38)
[2024-10-09] MEDS: LevETIRAcetam 500 MG TABLET PO SCH (20:38)
[2024-10-09] MEDS: DIVALPROEX SODIUM 500 MG ER TABLET PO SCH (20:38)
[2024-10-09] MEDS: GABAPENTIN 300 MG CAPSULE PO SCH (20:38)
[2024-10-10 01:02] VITALS: BP 99/59; PULSE 77; RESP 16; TEMP 98.7; O2SAT 96
[2024-10-10] MEDS: HYDROCODONE/ACETAMINOPHEN 5-325 MG TABLET PO PRN (01:05)
[2024-10-10 04:12] VITALS: BP 102/66; PULSE 76; RESP 18; TEMP 97.8; O2SAT 96
[2024-10-10 07:41] LABS: ANION GAP 9 mmol/L (8-16); CARBON DIOXIDE 26 mmol/L (22-29); CHLORIDE 103 mmol/L (98-107); CREATININE 0.85 mg/dL (0.60-1.30); GLOMERULAR FILTR. RATE CALC > 60 mL/min (>60); GLUCOSE,RANDOM 87 mg/dL (70-110); POTASSIUM 4.3 mmol/L (3.5-5.1); SODIUM SERUM 138 mmol/L (136-145); UREA NITROGEN, BLOOD 9 mg/dL (7-18)
[2024-10-10] MEDS: PANTOPRAZOLE SODIUM 40 MG DR TABLET PO SCH (08:31)
[2024-10-10] MEDS ORDERED: NALTREXONE HCL 50 MG TABLET PO SCH (09:00)
[2024-10-10 12:49] VITALS: BP 110/77; PULSE 74; RESP 18; TEMP 98.2; O2SAT 100
[2024-10-10 16:12] VITALS: BP 116/72; PULSE 70; RESP 18; TEMP 97.9; O2SAT 100
[2024-10-10 19:35] VITALS: BP 101/59; PULSE 68; RESP 18; TEMP 97.8; O2SAT 97
[2024-10-10 20:20] VITALS: BP 99/59; PULSE 72; RESP 18; TEMP 98.1; O2SAT 99
[2024-10-11 04:07] LABS: HEPATITIS C AB (EIA) Non Reactive (Non Reactive)
[2024-10-11 04:30] VITALS: BP 108/68; PULSE 72; RESP 18; TEMP 98; O2SAT 97
[2024-10-11 08:42] VITALS: BP 99/54; PULSE 74; RESP 18; TEMP 97.8; O2SAT 99
[2024-10-11 14:41] LABS: ANION GAP 10 mmol/L (8-16); CALCIUM, TOTAL 8.9 mg/dL (8.8-10.5); CARBON DIOXIDE 22 mmol/L (22-29); CHLORIDE 106 mmol/L (98-107); CREATININE 0.77 mg/dL (0.60-1.30); GLOMERULAR FILTR. RATE CALC > 60 mL/min (>60); GLUCOSE,RANDOM 89 mg/dL (70-110); POTASSIUM 4.5 mmol/L (3.5-5.1); SODIUM SERUM 138 mmol/L (136-145); UREA NITROGEN, BLOOD 10 mg/dL (7-18); VANCOMYCIN,RANDOM 32.5 mcg/mL (25.0-50.0)
[2024-10-11 15:55] VITALS: BP 105/56; PULSE 69; RESP 18; TEMP 98; O2SAT 98
[2024-10-11 19:53] VITALS: BP 103/68; PULSE 73; RESP 18; TEMP 98.5; O2SAT 98
[2024-10-12] MEDS ORDERED: SODIUM CHLORIDE 0.9% 500 ML IV ONE (00:01)
[2024-10-12 08:25] VITALS: BP 91/68; PULSE 79; RESP 18; TEMP 98.1; O2SAT 100
[2024-10-12 09:16] LABS: ANION GAP 8 mmol/L (8-16); CALCIUM, TOTAL 8.6 mg/dL (8.8-10.5); CARBON DIOXIDE 25 mmol/L (22-29); CHLORIDE 106 mmol/L (98-107); CREATININE 0.84 mg/dL (0.60-1.30); GLOMERULAR FILTR. RATE CALC > 60 mL/min (>60); GLUCOSE,RANDOM 81 mg/dL (70-110); POTASSIUM 4.3 mmol/L (3.5-5.1); SODIUM SERUM 139 mmol/L (136-145); UREA NITROGEN, BLOOD 10 mg/dL (7-18); VANCOMYCIN,RANDOM 26.2 mcg/mL (25.0-50.0)
[2024-10-12] MEDS ORDERED: AMOX-457 PO (09:59)
[2024-10-12 16:00] VITALS: BP 109/78; PULSE 82; RESP 18; TEMP 98; O2SAT 98
[2024-10-12] MEDS: ACETAMINOPHEN 325 MG TABLET PO PRN (16:13)
[2024-10-12] MEDS ORDERED: VANCOMYCIN 1GM/WATER(PEG/NADA) 200 ML IV SCH (20:00)
== END 2024-10-12 18:38 | disposition home or self-care (01) | DRG 603 ==
LOC: EMS 11:32 → EDH 15:20 → 6S 17:50
PROVIDERS: ADMIT Internal Medicine; ATTEND Internal Medicine
DX: L03.116 Cellulitis of left lower limb (principal); I48.20 Chronic atrial fibrillation, unspecified; I85.10 Secondary esophageal varices without bleeding; L03.115 Cellulitis of right lower limb; K21.9 Gastro-esophageal reflux disease without esophagitis; F10.10 Alcohol abuse, uncomplicated; K74.60 Unspecified cirrhosis of liver; F17.200 Nicotine dependence, unspecified, uncomplicated; E11.40 Type 2 diabetes mellitus with diabetic neuropathy, unspecified; J43.9 Emphysema, unspecified; G40.909 Epilepsy, unspecified, not intractable, without status epilepticus; Y90.9 Presence of alcohol in blood, level not specified; F20.9 Schizophrenia, unspecified; F31.9 Bipolar disorder, unspecified; F41.9 Anxiety disorder, unspecified; K59.00 Constipation, unspecified; Z79.899 Other long term (current) drug therapy; Z78.9 Other specified health status; Z88.8 Allergy status to other drugs, medicaments and biological substances
CPT/HCPCS: 71045; 71250; 80048; 80202; 81003; 82550; 83880; 84484; 85025; 86803; 87340; 93005; 93970; 99285; J1644; J2270; J3370; J7040; J7050; 36415-L1; 36415-TC

== ENCOUNTER 2024-11-24 21:07 | Emergency (ER) | payer MEDICARE, OTHER ==
[~2024-11-24] VITALS: Ht 170.2 cm; Wt 86.4 kg
[~2024-11-24 21:07] MED LIST changes: +AMOX-457 PO
[2024-11-24 22:51] LABS: BASOPHILS % (AUTO) 0.8 % (0.0-2.0); EOSINOPHILS % (AUTO) 4.8 % (1.0-6.0); HEMATOCRIT 34.3 % (41-53); LYMPHOCYTES # (AUTO) 1.9 K/uL (1.0-4.8); LYMPHOCYTES % (AUTO) 38.6 % (22.0-44.0); MEAN CORPUSCULAR HEMOGLOBIN 23.5 pg (26.0-34.0); MEAN CORPUSCULAR HGB CONC 32.1 G/dL (31.0-37.0); MEAN CORPUSCULAR VOLUME 73 fL (80-100); MONOCYTES # (AUTO) 0.4 K/uL (0.1-1.0); MONOCYTES % (AUTO) 8.5 % (2.0-9.0); NEUTROPHILS # (AUTO) 2.3 K/uL (1.8-7.7); NEUTROPHILS % (AUTO) 47.3 % (40.0-70.0); PLATELET COUNT (AUTO) 289 K/uL (150-450); RED BLOOD CELL COUNT(AUTO) 4.69 MIL/uL (4.50-5.90); RED CELL DISTRIBUTION WIDTH 18.9 % (11.5-14.5)
[2024-11-24 23:05] LABS: ANION GAP 8 mmol/L (8-16); CALCIUM, TOTAL 8.7 mg/dL (8.8-10.5); CARBON DIOXIDE 28 mmol/L (22-29); CHLORIDE 100 mmol/L (98-107); CREATININE 0.87 mg/dL (0.60-1.30); GLOMERULAR FILTR. RATE CALC > 60 mL/min (>60); GLUCOSE,RANDOM 86 mg/dL (70-110); POTASSIUM 3.3 mmol/L (3.5-5.1); SODIUM SERUM 136 mmol/L (136-145); UREA NITROGEN, BLOOD 16 mg/dL (7-18)
[2024-11-24 23:12] LABS: RBC MORPHOLOGY COMMENT ABNORMAL RBC MORPH
[2024-11-24 23:36] VITALS: TEMP 98.1
[2024-11-24] MEDS: LORazepam 2 MG TABLET PO ONE (23:42)
[2024-11-25 00:33] LABS: COVID AG,FIA SOURCE NASAL SWAB; SARS-COV2 (COVID) ANTIGEN,FIA Negative (Negative)
[2024-11-25] MEDS: POTASSIUM CHLORIDE 20 MEQ ER TABLET PO ONE (00:49)
[2024-11-25 01:54] VITALS: BP 114/69; PULSE 74; RESP 18; O2SAT 96
[2024-11-27] MEDS ORDERED: OLAN5TAB94 PO (19:38)
== END 2024-11-25 02:45 ==
LOC: EMS 21:07
DX: F20.9 Schizophrenia, unspecified (principal); E87.6 Hypokalemia; F31.9 Bipolar disorder, unspecified; J44.9 Chronic obstructive pulmonary disease, unspecified; I48.91 Unspecified atrial fibrillation; F41.9 Anxiety disorder, unspecified; K21.9 Gastro-esophageal reflux disease without esophagitis; F17.210 Nicotine dependence, cigarettes, uncomplicated; Z88.8 Allergy status to other drugs, medicaments and biological substances; Z79.899 Other long term (current) drug therapy; Z20.822 Contact with and (suspected) exposure to COVID-19
CPT/HCPCS: 99283; 87426; 80048; 85025; 36415; G0480